=== PATIENT | female | born 1940 | race Caucasian/White ===

== ENCOUNTER 2018-01-02 21:22 | Emergency (ER) | payer MEDICARE, SELFPAY ==
[2018-01-02 21:24] VITALS: BP 129/74; PULSE 94; RESP 17; TEMP 36.7; O2SAT 93; BMI 20.9
--- NOTE | 2018-01-02 21:43 | ED.DCSUM_ITS ---
- ER Visit Summary Date of Service: 01/02/18 Chief Complaint: Constipation History of Present Illness: The patient is a 77 F presents constipation for 3 days. Normal bowel movement every other day. States decreased flatus. Nausea vomiting 3 days ago, none since. Has tolerated oral intake. No urinary symptoms. Try to suppository with no relief. Concerned due to have a bowel obstruction in July of last year with similar presentation. She has had radiation therapy for uterine cancer in the past along with an appendectomy. She is followed by Dr. Fernández as an inpatient with conservative treatment. States had lower abdominal discomfort. No fevers. Currently denies any symptoms. Physical Examination: General: Alert and oriented ?3, no acute distress HEENT: Normocephalic, atraumatic. Moist mucosa membranes Neck: supple, nontender. Cardiovascular: Regular rate and rhythm, no murmurs Respiratory: Normal breath sounds, symmetric, no distress Abdomen: Soft, nontender, nondistended. Hypoactive bowel sounds Rectal: No hemorrhoids, no stools in the rectum. Extremities: Nontender, no edema, pulses intact ?4 Neuro: no focal neurological deficits. Test Results: White count 12.2. Lipase 75. BMP and liver enzymes normal. CT abdomen pelvis no acute findings, no obstruction. Emergency Department Course and Treatment: Patient nonsurgical abdomen. History of bowel obstruction per patient. Abdominal labs normal. CT abdomen shows no obstruction. Overall my evaluation no distended bladder. States his denied problems urinating. She is monitored she is able urinate herself and fully empty. Discussed with patient she has bowel movements every other day she does have MiraLAX at home. She will take MiraLAX 1 scoop daily to try to have 1 bowel movement per day. She will monitor symptoms. She will follow-up with PCP. Return if any worsening symptoms. All questions were answered. Treatment Plan: [] Disposition: Discharge Impression: 1. Constipation This note was generated with [employer] dictation software. It may contain incorrect words, spelling, and punctuation that were not noted in review of the chart prior to signing ED Disposition - Plan for ED Patient: Disposition: Home or Assisted Living Chief Complaint: Constipation Diagnosis: Constipation Instructions: ED Constipation Referrals: Dory Johnson DO [Primary Care Provider] - 3-5 Days Additional Instructions: Use MiraLAX daily.
[2018-01-02 22:01] LABS: Absolute Lymphocyte Count 3.37 X10^3/ul (0.83-4.51); Absolute Neutrophil Count 7.2 X10^3/uL (2.0-7.7); Basophil# 0.06 X10^3/uL; Basophil% 0.5 % (0-1); Eosinophil# 0.15 X10^3/uL; Eosinophils% 1.2 % (0-5); Hematocrit 44.5 % (37-47); Hemoglobin 14.5 g/dl (12.0-15.0); Lymphocyte # 3.37 X10^3/ul (4.0); Lymphocyte % 27.5 % (19-41); Mean Corp Hgb Conc 32.6 g/gl (32-36); Mean Corpuscular Hgb 29.1 pg (27.0-32.0); Mean Corpuscular Volume 89.2 fL (81-99); Mean Platelet Vol. 10.6 fl (6.2-12.0); Monocyte# 1.49 X10^3/uL; Monocyte% 12.2 % (0-10); Neutrophil # 7.15 X10^3/uL (2.7-7.7); Neutrophil % 58.4 % (47-70); Platelet Count 211 K/mm3 (150-450); RBC Distribution Width SD 42.2 fl (35.1-43.9); Red Blood Count 4.99 M/mm3 (4.2-5.4); White Blood Count 12.2 K/mm3 (4.4-11.0)
[2018-01-02 22:07] LABS: POSITIVE COUNT NO; POSITIVE DIFFERENTIAL NO; POSITIVE MORPHOLOGY NO
[2018-01-02 22:20] LABS: ALB/GLOB Ratio 1.1 RATIO (0.9-2.4); AST(SGOT) 17 U/L (15-37); Alanine Aminotransfer ALT/SGPT 27 U/L (13-56); Albumin, Serum 3.8 g/dL (3.2-5.0); Alkaline Phosphatase 77 U/L (45-117); Anion Gap 10 (5-15); BUN 18 mg/dL (7-18); BUN/Creat Ratio 18.8 RATIO (10-20); Calcium,Total 9.4 mg/dL (8.5-10.1); Chloride 100 mmol/L (98-107); Creatinine, Serum 0.96 mg/dL (0.55-1.02); EST Glomerular Filtration Rate 60 mL/min (>60); Est Glom Filt Rate - Afr Amer 72 mL/min (>60); Estimated Creatinine Clearance 43.46 ml/min; Globulin 3.5 g/dL (2.2-4.2); Glucose 98 mg/dL (74-106); Lipase 75 U/L (73-393); Potassium 3.7 mmol/L (3.5-5.1); Protein, Total 7.3 g/dL (6.4-8.2); Sodium Level 137 mmol/L (136-145)
--- NOTE | 2018-01-02 22:48 | CT_ITS ---
STUDY: CT ABDOMEN AND PELVIS WITHOUT CONTRAST REASON FOR EXAM: Female, 77 years old. Abdominal pain. Constipation RADIATION DOSAGE (If Supplied By Facility): CTDIvol = ( 6 ) mGy, DLP = ( 261 ) mGycm TECHNIQUE: Transaxial images were obtained from the dome of the diaphragm to the symphysis pubis without oral contrast, and without intravenous contrast. Sagittal and coronal images were reconstructed. Individualized dose optimization techniques were used for this CT. COMPARISON: 08/03/2017 FINDINGS: Evaluation of the abdominal viscera is limited in the absence of intravenous contrast. There are stable emphysematous changes at the lung bases. The visualized portions of the heart and pericardium are within normal limits. The patient is status post cholecystectomy. The liver demonstrates an unremarkable unenhanced appearance. The spleen is normal in size. The pancreas demonstrates an unremarkable unenhanced appearance. The adrenal glands are within normal limits. There are no obstructing renal stones. There is no hydronephrosis. Normal visualized stomach. There is no bowel obstruction or inflammation. The appendix is not visualized, but there are no findings to suggest acute appendicitis. The aorta is normal in caliber. Again noted are atherosclerotic calcifications in the aorta and its branches. There is no abdominal or pelvic free air, free fluid, fluid collection or lymphadenopathy. There are no destructive osseous lesions. CT/Abdomen/Pelvis without Cont IMPRESSION: No acute abdominal or pelvic pathology demonstrated on this noncontrast CT. Electronically Signed: Jame Da Silva, at 23:19 EDT Tel , Service support ,
[2018-01-02] MEDS: 0.9% Normal Saline 1,000 ML 125 ML IV (23:00)
[2018-01-03 00:08] VITALS: BP 127/67; PULSE 89; RESP 18; O2SAT 96
== END 2018-01-03 00:09 | disposition home or self-care (01) ==
PROVIDERS: Emergency Provider Emergency Medicine; Family Provider Internal Medicine; PCP Internal Medicine
DX: K59.00 Constipation, unspecified (principal); I10 Essential (primary) hypertension; J44.9 Chronic obstructive pulmonary disease, unspecified; Z72.0 Tobacco use; Z85.42 Personal history of malignant neoplasm of other parts of uterus
CPT/HCPCS: 74176; 80053; 83690; 85025; 96360; 96361; 99283; J7030; A4216

== ENCOUNTER 2018-01-26 22:37 | Emergency (ER) | payer MEDICARE, SELFPAY ==
[2018-01-26 22:37] VITALS: BP 153/77; PULSE 99; RESP 22; TEMP 36.6; O2SAT 93; BMI 20.9
--- NOTE | 2018-01-26 23:04 | ED.DCSUM_ITS ---
- ER Visit Summary Date of Service: 01/26/18 Chief Complaint: hives History of Present Illness: The patient is a 77 F with history of COPD who presents for hives and itching. Patient states that she was on Bactrim from until January 14 for a urinary tract infection. She said she began having itching sometime while on the Bactrim but she is not exactly sure when. She saw her doctor 2 days ago and was given an injection of Solu-Medrol intramuscularly. She felt better yesterday but had return of symptoms today. She noted that she has a red rash at some point in the last couple days as well. Rash noted on the legs, arms, back and abdomen. Patient also feels like her upper lip is swollen. She states her urinary symptoms resolved on the Bactrim but she does have burning after urination. She denies fever, chest pain , shortness of breath beyond her baseline, abdominal pain, nausea or vomiting, oral lesions or pain, vaginal pain, bowel difficulties, or eye itching or discharge. Physical Examination: Vital signs: afebrile, hemodynamically stable, on chronic oxygen, 93% General: well nourished, well developed, in no distress Skin: warm, dry, no pallor, dry erythematous patches and plaques symmetric on the inner thighs, flexor surfaces of the arms, and diffuse maculopapular erythematous dry rash on the buttocks, back, chest and abdomen, lesions are pruritic with secondary excoriations. No vesicles, bullae, petechiae or purpura. No oropharyngeal lesions or erythema. No vulvar lesions or erythema. HEENT: normocephalic and atraumatic; PERRL, EOMI, moist mucous membranes, conjunctivae are white without lesions or exudate, right upper lip has focal area of mild swelling without any vesicle, rash or skin compromise Cardiovascular: regular rate and rhythm without murmurs, no peripheral edema, 2 + pulses all distal extremities Respiratory: No increased work of breathing, lungs are clear to auscultation bilaterally, no rales, rhonchi or wheezing Abdominal: Abdomen is soft, nontender with normoactive bowel sounds, no guarding or rebound, no masses MSK: Moves all extremities, no deformities, normal strength Neuro: Awake and alert, oriented ?4. No facial droop, sensation and motor function intact and symmetric Test Results: Laboratory Results 01/26/18 23:12: WBC 19.6 H, RBC 4.95, Hgb 14.6, Hct 43.7, MCV 88.3, MCH 29.5, MCHC 33.4, RDW 13.2, RDW Differential 42.5, Plt Count 234, MPV 11.4, Immature Gran % (Auto) 0.300, Neut % (Auto) 58.8, Lymph % (Auto) 27.2, Mcdonough % (Auto) 11.3 H, Eos % (Auto) 1.0, Baso % (Auto) 1.4 H, Absolute Neuts (auto) 11.5 H, Absolute Lymphs (auto) 5.33 H, Total Counted Not Reportable, Differential Comment SCANNED, Diff Path Review May foll, Atypical Lymphocytes 1+, Reactive Lymphocytes 1+, Smudge Cells RARE, Platelet Estimate ADEQUATE 01/26/18 23:12: Sodium 139, Potassium 3.8, Chloride 102, Carbon Dioxide 30.0, Anion Gap 7, BUN 26 H, Creatinine 0.98, Estim Creat Clear Calc 42.57, Est GFR ( MDRD) Af Amer 71, Est GFR (MDRD) Non-Af 59 L, BUN/Creatinine Ratio 26.7 H, Glucose 107 H, Calcium 9.4, Total Bilirubin 0.30, AST 17, ALT 21, Alkaline Phosphatase 78, Total Protein 7.8, Albumin 4.1, Globulin 3.7, Albumin/Globulin Ratio 1.1 01/26/18 23:12: Urine Color Yellow, Urine Clarity Clear, Urine pH 6.0, Ur Specific [place] 1.010, Urine Protein Negative, Urine Glucose (UA) Normal, Urine Ketones Negative, Urine Occult Blood 10 H, Urine Nitrite Negative, Urine Bilirubin Negative, Urine Urobilinogen Normal, Ur Leukocyte Esterase 500 H, Urine RBC 0 SEEN, Urine WBC 10-25 SEEN, Ur Squamous Epith Cells 0-5 SEEN, Urine Bacteria 1+, Urine Mucus 0 SEEN Emergency Department Course and Treatment: Differential for patient includes a drug reaction, allergic reaction, Jame Anibal syndrome. Patient has no lesions noted to the mucosal membranes, including the vulvar region and the oral mucosa. No lesions or ocular symptoms noted on examination of the eyes. Patient's rash is dry, blanchable, no petechiae, purpura or vesicles. Patient does state she had improvement after the Solu-Medrol injection 2 days ago with return of her symptoms today. Because patient is complaining of pain with urination, urinalysis was performed and does show a UTI. Likely this is the cause of the dysuria rather than patient having any lesions causing the pain. Patient had no change in her rash her condition. The rash is not painful but rather pruritic. These things make Arellano-Anibal syndrome much less likely and it is more likely an allergic reaction/drug rash. Patient is allergic to prednisone and thus was started on a Medrol Dosepak. She has Benadryl at home and was instructed to cautiously use it for the itching. Because of the UTI she was prescribed Keflex. She is allergic to almost every antibiotic, and her allergy to amoxicillin she states was it caused abdominal discomfort. Thus it is unlikely she will have anaphylaxis to Keflex and was prescribed this medication. First dose was given in the emergency department to see how she will respond to it and patient had no adverse effects. She was given strict return precautions and symptoms to watch for that should warrant her to return immediately for another evaluation. She is encouraged to follow-up in the next day or 2 with her doctor for reevaluation of her rash. Patient agreed with this plan. Treatment Plan: [] Disposition: [] Impression: Cystitis, allergic dermatitis This note was generated with [employer] dictation software. It may contain incorrect words, spelling, and punctuation that were not noted in review of the chart prior to signing ED Disposition - Plan for ED Patient: Disposition: Home or Assisted Living Chief Complaint: Allergic Reaction Instructions: ED Drug React Allergic, ED UTI Cystitis Female Prescriptions: MethylPREDNISolone DosePak [Medrol DosePak] 4 mg PO UD #1 box Cephalexin [Keflex] 500 mg PO BID #13 cap Referrals: Dory Johnson, [Primary Care Provider] - As soon as possible Additional Instructions: Prescriptions for the steroid Dosepak and the antibiotic has been sent electronically to the [facility] pharmacy. Please see your doctor or the nurse practitioner in your doctor's office as soon as possible for a reexamination of your rash. Take the Medrol Dosepak as instructed on the packaging label. May use Benadryl as needed for itching, taking the low dose of 25 mg every 6 hours as needed. It may make you sleepy so be very careful when walking and do not drive when taking this medication. If it makes you too sleepy, stop taking it. You also have a urinary tract infection and have been prescribed Keflex to treat it. If at any point you develop any lesions in your mouth, vaginal pain, eye redness or discharge, blisters on your skin, or any other worsening of your condition, please return immediately to the emergency department or call 911.
[2018-01-26 23:18] LABS: Mucous, Urine 0 SEEN /hpf (<or=2+); Red Blood Cells-Urine 0 SEEN /hpf (0-5)
[2018-01-26 23:22] LABS: Color, Urine Yellow (Yellow); Glucose, Dipstick Normal (Normal); Ketone-Dipstick Negative (Negative); Leukocyte Esterase-Dipstick 500 /ul (Negative); Nitrite-Dipstick Negative (Negative); Occult Blood-Urine 10 /ul (Negative); Protein-Dipstick Negative (Negative); Urine Bilirubin Dipstick Negative (Negative); Urine Clarity Clear (Clear); Urine Urobilinogen Normal (Normal)
[2018-01-26 23:29] LABS: Absolute Lymphocyte Count 5.33 X10^3/ul (0.83-4.51); Absolute Neutrophil Count 11.5 X10^3/uL (2.0-7.7); Basophil# 0.28 X10^3/uL; Basophil% 1.4 % (0-1); Hematocrit 43.7 % (37-47); Hemoglobin 14.6 g/dl (12.0-15.0); Lymphocyte # 5.33 X10^3/ul (4.0); Lymphocyte % 27.2 % (19-41); Mean Corp Hgb Conc 33.4 g/gl (32-36); Mean Corpuscular Hgb 29.5 pg (27.0-32.0); Mean Corpuscular Volume 88.3 fL (81-99); Mean Platelet Vol. 11.4 fl (6.2-12.0); Monocyte# 2.22 X10^3/uL; Monocyte% 11.3 % (0-10); Neutrophil # 11.48 X10^3/uL (2.7-7.7); Neutrophil % 58.8 % (47-70); Platelet Count 234 K/mm3 (150-450); RBC Distribution Width CV 13.2 % (11.6-14.6); RBC Distribution Width SD 42.5 fl (35.1-43.9); Red Blood Count 4.95 M/mm3 (4.2-5.4); White Blood Count 19.6 K/mm3 (4.4-11.0)
[2018-01-26 23:31] LABS: Differential Indicated SCAN CRITERIA MET; POSITIVE COUNT NO; POSITIVE DIFFERENTIAL YES; POSITIVE MORPHOLOGY YES
[2018-01-26 23:35] LABS: ALB/GLOB Ratio 1.1 RATIO (0.9-2.4); AST(SGOT) 17 U/L (15-37); Alanine Aminotransfer ALT/SGPT 21 U/L (13-56); Albumin, Serum 4.1 g/dL (3.2-5.0); Alkaline Phosphatase 78 U/L (45-117); Anion Gap 7 (5-15); BUN 26 mg/dL (7-18); BUN/Creat Ratio 26.7 RATIO (10-20); Bacteria 1+ /hpf (None Seen); Calcium,Total 9.4 mg/dL (8.5-10.1); Chloride 102 mmol/L (98-107); Creatinine, Serum 0.98 mg/dL (0.55-1.02); EST Glomerular Filtration Rate 59 mL/min (>60); Est Glom Filt Rate - Afr Amer 71 mL/min (>60); Estimated Creatinine Clearance 42.57 ml/min; Globulin 3.7 g/dL (2.2-4.2); Glucose 107 mg/dL (74-106); Potassium 3.8 mmol/L (3.5-5.1); Protein, Total 7.8 g/dL (6.4-8.2); Sodium Level 139 mmol/L (136-145); Squamous Epithelial Cells - UA 0-5 SEEN /hpf (5-10); White Blood Cells 10-25 SEEN /hpf (0-5)
--- NOTE | 2018-01-27 00:54 | ED.DEP ---
ED Disposition - Plan for ED Patient: Disposition: Home or Assisted Living Chief Complaint: Allergic Reaction Instructions: ED Drug React Allergic, ED UTI Cystitis Female Prescriptions: Cephalexin [Keflex] 500 mg PO Q12H #14 cap MethylPREDNISolone DosePak [Medrol DosePak] 4 mg PO UD #1 box Referrals: Dory Johnson DO [Primary Care Provider] - As soon as possible Additional Instructions: Prescriptions for the steroid Dosepak and the antibiotic has been sent electronically to the [facility] pharmacy. Please see your doctor or the nurse practitioner in your doctor's office as soon as possible for a reexamination of your rash. Take the Medrol Dosepak as instructed on the packaging label. May use Benadryl as needed for itching, taking the low dose of 25 mg every 6 hours as needed. It may make you sleepy so be very careful when walking and do not drive when taking this medication. If it makes you too sleepy, stop taking it. You also have a urinary tract infection and have been prescribed Keflex to treat it. If at any point you develop any lesions in your mouth, vaginal pain, eye redness or discharge, blisters on your skin, or any other worsening of your condition, please return immediately to the emergency department or call 911.
[2018-01-27 00:58] LABS: Atypical Lymphocyte 1+ %; Differential Comment SCANNED; Platelet Estimate ADEQUATE (ADEQ); Reactive Lymphocyte 1+; Smudge Cells RARE
[2018-01-27] MEDS: Cephalexin 250 MG Capsule 500 MG PO (01:07)
[2018-01-27 02:12] VITALS: BP 136/83; PULSE 86; O2SAT 97
--- NOTE | 2018-01-27 02:13 | NURSING ---
NO REACTION NOTED AFTER TAKING A P.O DOSE OF KEFLEX. PATIENT OK TO BE DISCHARGED HOME PER DR. HOLCOMB.
[2018-01-27 11:49] LABS: Pathologist Review Reviewed
== END 2018-01-27 02:17 | disposition home or self-care (01) ==
PROVIDERS: Emergency Provider Emergency Medicine; Family Provider Internal Medicine; PCP Internal Medicine
DX: N30.90 Cystitis, unspecified without hematuria (principal); L30.8 Other specified dermatitis; J44.9 Chronic obstructive pulmonary disease, unspecified; Z99.81 Dependence on supplemental oxygen
CPT/HCPCS: 80053; 81001; 85025; 87086; 87088; 99284; A4216

== ENCOUNTER → 2018-04-06 07:40 | Outpatient (CLI) | payer MEDICARE, SELFPAY ==
--- NOTE | 2018-04-06 07:41 | BI_ITS ---
MAMMOGRAPHY - BILATERAL SCREENING REASON FOR EXAM: Female, 78 years old. Routine annual screening examination. PERTINENT HISTORY: Non-contributory. TECHNIQUE: Digital bilateral breast billy (3D mammographic acquisition) in the CC and MLO projections. 2-D mediolateral oblique (MLO) and craniocaudad (CC) views of both breasts were obtained. CAD: Full Field Digital Mammography with Computer Added Detection was performed. COMPARISON: Comparison is made with prior study dated July 27, 2013 and June 02, 2012. FINDINGS: Breast Composition: There are scattered areas of fibroglandular density. There are no dominant masses or suspicious calcifications. No other significant abnormalities are identified. There has been no significant change since the prior study. BI/SCREENING MAMM (CAD), BILAT IMPRESSION: Stable bilateral screening mammogram. Yearly follow-up mammogram recommended. (A) ASSESSMENT CATEGORY: BIRADS Category 1: Negative. A letter regarding these results will be sent to the patient by the facility within 30 days. Approximately 10% of breast cancers are not detected by mammography. A normal mammogram should not delay biopsy of a clinically suspicious abnormality. [id number] Electronically Signed: Roberto Carlos Laureano MD at 10:56 EDT Tel [phone], Service support ,
== END ==
PROVIDERS: Family Provider Internal Medicine; PCP Internal Medicine; Visit Provider Internal Medicine
DX: Z12.31 Encounter for screening mammogram for malignant neoplasm of breast (principal)
CPT/HCPCS: 77063; 77067

== ENCOUNTER → 2018-05-11 07:32 | Outpatient (CLI) | payer MEDICARE, SELFPAY ==
--- NOTE | 2018-05-11 13:41 | PFT ---
INTRODUCTION: The patient is a 78-year-old female that presents for pulmonary function testing secondary to a diagnosis of COPD. Respiratory therapy reports good patient effort. Bronchodilators were used during testing. INTERPRETATION: Forced expiration spirometry demonstrates the presence of a severe large airways obstructive ventilatory defect. There was no significant response to aerosolized bronchodilators. Spirograms are of good quality and do not plateau indicating slow emptying of the lungs. The respiratory flow volume loop reveals decreased expiratory flow rates at all lung volumes consistent with airways obstruction. Body plethysmography was performed and reveals an elevated RV to 153% of predicted, indicative of underlying air trapping. Diffusing capacity by single breath CO is severely reduced at 36% of predicted. 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 All of this would be in keeping with the patient's known history of COPD.
== END ==
PROVIDERS: Family Provider Internal Medicine; PCP Internal Medicine; Visit Provider Internal Medicine
DX: J44.9 Chronic obstructive pulmonary disease, unspecified (principal)
CPT/HCPCS: 94060; 94726; 94729

== ENCOUNTER 2018-07-21 07:31 | Observation (INO) | payer MEDICARE, SELFPAY ==
[2018-07-21] VITALS (13 sets, daily range): BP systolic 120–132; BP diastolic 54–69; PULSE 80–100; RESP 16–28; TEMP 36.6–36.9; O2SAT 88–99; BMI 20.7; BMI 20.8; BMI 21.3
--- NOTE | 2018-07-21 07:33 | EKG12_ITS ---
Test Reason : CP Blood Pressure : / mmHG Vent. Rate : 095 BPM Atrial Rate : 095 BPM P-R Int : 140 ms QRS Dur : 092 ms QT Int : 336 ms P-R-T Axes : 036 024 052 degrees QTc Int : 422 ms Sinus rhythm with frequent Premature ventricular complexes Otherwise normal ECG Confirmed by LILLIAN MENDES, LINDSAY ([id number]), proposal editor LINDA LEVINE ([id number]) on 07/25/2018 2:39:05 PM Referred By: DOLORES Confirmed By:LINDSAY SNYDER MD
--- NOTE | 2018-07-21 07:45 | RAD_ITS ---
STUDY: X-RAY CHEST REASON FOR EXAM: Female, 78 years old. Chest pain. TECHNIQUE: Single AP portable view of the chest. COMPARISON: Comparison is made with prior study dated April 27, 2010. FINDINGS: EKG electrodes are seen. Mild increased markings at the lung bases slightly more prominent on the left side suggestive of mild basilar scarring. Hyperinflation. There is no demonstrated pleural abnormality. Normal size heart. Normal mediastinum and ignacio. Normal visualized pulmonary arteries. There is atherosclerotic calcification of the aortic arch with tortuosity. There are diffuse degenerative changes of the visualized thoracic spine. Mild levoscoliosis. Normal visualized ribs, clavicles, and shoulders. There is no demonstrated abnormality of the visualized soft tissue structures of the upper abdomen. RAD/Chest 1 View (Portable) IMPRESSION: Hyperinflation. Mild increased markings at the lung bases slightly more prominent at the left lung base suggestive of linear scarring. Electronically Signed: Roberto Carlos Laureano MD at 8:17 EDT Tel [phone], Service support ,
--- NOTE | 2018-07-21 07:48 | ED.VISSUMM ---
- ER Visit Summary Date of Service: 07/21/18 Chief Complaint: Chest pain History of Present Illness: The patient is a 78 F history of COPD on 2 L O2 and hypertension. States the last week she has had intermittent chest pain with and without exertion. No prior cardiac history. She denies ever having a cardiac cath and does not believe she is ever had a stress test. She denies any history of DVT or PE. She has had no recent travel, surgery, mobilization or hospitalization. She denies any leg pain or swelling. She denies any hemoptysis. She describes the chest pain as a pressure or heaviness in her chest this morning and last night it did go to her left arm. Currently is resolved. She was brought in by the squad that she caught herself and they treated her with aspirin. She refused any nitroglycerin. Physical Examination: Elderly female no acute distress. Currently pain-free. Vital signs stable and afebrile. Pulse ox 94% on it says room air on 2 L she is in the mid 90s. No hypoxia. HEENT exam unremarkable. Neck nontender. No JVD. Lungs clear to auscultation bilaterally. Heart regular rhythm no murmur. Chest wall nontender. Abdomen soft and nontender. Normal bowel sounds. No pulsatile mass. She is moving all 4 extremities. She is equal and symmetrical radial pulses. Calves are nontender without edema or cords. Back nontender. Neurologically she is awake and alert with no focal motor deficits. Test Results: EKG shows a sinus rhythm rate of 95 with a few PVCs. No acute signs of WI nor ischemia. Chest x-ray shows chronic changes but no acute process read both by myself and the radiologist. Normal cardiac silhouette and mediastinum. CBC White count 11.6 otherwise unremarkable. Hemoglobin 14. Electrolytes show sodium 132. Potassium 3.3. Normal gap and creatinine. Troponin is normal also. Emergency Department Course and Treatment: Elderly female with intermittent chest pain for approximately a week. She will undergo a cardiac workup. She has already received aspirin per squad. Repeat exam at 08 40 5 AM the patient is doing well. Symptom-free. She not discussed all of her test results and the reason to have her admitted and further evaluated. She is fine with the plan. I have the hospitalist on page. Treatment Plan: [] Disposition: Admission Impression: Acute chest pain of uncertain etiology History of COPD on O2 This note was generated with [employer] dictation software. It may contain incorrect words, spelling, and punctuation that were not noted in review of the chart prior to signing ED Disposition - Plan for ED Patient: Chief Complaint: Chest Pain Referrals: Dory Johnson DO [Primary Care Provider] -
[2018-07-21 07:58] LABS: Absolute Lymphocyte Count 2.25 X10^3/ul (0.83-4.51); Basophil# 0.04 X10^3/uL; Basophil% 0.3 % (0-1); Eosinophil# 0.09 X10^3/uL; Eosinophils% 0.8 % (0-5); Hematocrit 43.8 % (37-47); Hemoglobin 14.5 g/dl (12.0-15.0); Lymphocyte # 2.25 X10^3/ul (4.0); Lymphocyte % 19.3 % (19-41); Mean Corp Hgb Conc 33.1 g/gl (32-36); Mean Corpuscular Hgb 28.5 pg (27.0-32.0); Mean Corpuscular Volume 86.1 fL (81-99); Mean Platelet Vol. 10.6 fl (6.2-12.0); Monocyte% 10.3 % (0-10); Neutrophil # 8.03 X10^3/uL (2.7-7.7); Neutrophil % 69.1 % (47-70); Platelet Count 222 K/mm3 (150-450); RBC Distribution Width CV 12.6 % (11.6-14.6); Red Blood Count 5.09 M/mm3 (4.2-5.4); White Blood Count 11.6 K/mm3 (4.4-11.0)
[2018-07-21 08:01] LABS: POSITIVE COUNT NO; POSITIVE DIFFERENTIAL NO; POSITIVE MORPHOLOGY NO
[2018-07-21 08:14] LABS: Anion Gap 9 (5-15); BUN 21 mg/dL (7-18); BUN/Creat Ratio 27.4 RATIO (10-20); Calcium,Total 9.4 mg/dL (8.5-10.1); Chloride 96 mmol/L (98-107); Creatinine, Serum 0.77 mg/dL (0.55-1.02); EST Glomerular Filtration Rate 77 mL/min (>60); Est Glom Filt Rate - Afr Amer 93 mL/min (>60); Estimated Creatinine Clearance 40.83 ml/min; Glucose 103 mg/dL (74-106); Potassium 3.3 mmol/L (3.5-5.1); Sodium Level 132 mmol/L (136-145)
--- NOTE | 2018-07-21 08:54 | PCM.HP.STD ---
Problem List (1) History of foot surgery Status: Chronic (2) History of arthroscopy of left knee Status: Chronic (3) History of tubal ligation Status: Chronic (4) History of cholecystectomy Status: Chronic (5) Anxiety Status: Chronic (6) Hyperglyceridemia Status: Chronic (7) Smoker Status: Chronic (8) Bronchitis Status: Chronic (9) Allergic rhinitis Status: Chronic (10) COPD (chronic obstructive pulmonary disease) Status: Chronic (11) HTN (hypertension) Status: Chronic (12) Low HDL (under 40) Status: Chronic (13) Hypoxemia Status: Chronic (14) Osteoporosis Status: Chronic (15) Hypothyroidism Status: Chronic (16) Abnormal blood chemistry Status: Acute (17) Chest pain Status: Acute (18) GERD (gastroesophageal reflux disease) Status: Chronic (19) Diverticulosis of colon Status: Chronic (20) SOB (shortness of breath) Status: Chronic (21) PVD (peripheral vascular disease) Status: Chronic (22) Nephrolithiasis Status: Chronic (23) COPD (chronic obstructive pulmonary disease) Status: Acute (24) History of cervical cancer Status: Chronic (25) HTN (hypertension) Status: Chronic (26) SBO (small bowel obstruction) Status: Acute History of Present Illness Date of Admission: 07/21/18 Chief Complaint: Chest discomfort The patient is a 78 year old F with multiple comorbidities including chronic hypoxic respiratory failure on baseline home O2 who presents chest pain. Patient reports chest pain is located in the epigastrium with radiation down her arms. Patient has experienced intermittent chest pain over the past couple of weeks. The frequency was increasing hence her decision to present to the emergency abdomen. On further questioning patient denied any shortness of breath. Denied feeling lightheaded no nausea no vomiting. Patient was seen in the emergency department initial set of cardiac enzymes came back unremarkable admitted to a monitored bed for subsequent evaluation. Past Medical History Past Medical History (Chronic Problems): Chronic Problems (Last Reviewed 06/02/18 @ 07:26 by Inga Meyer) History of foot surgery (Chronic) History of arthroscopy of left knee (Chronic) History of tubal ligation (Chronic) History of cholecystectomy (Chronic) Anxiety (Chronic) Hyperglyceridemia (Chronic) Smoker (Chronic) Bronchitis (Chronic) Allergic rhinitis (Chronic) COPD (chronic obstructive pulmonary disease) (Chronic) HTN (hypertension) (Chronic) Low HDL (under 40) (Chronic) Hypoxemia (Chronic) Osteoporosis (Chronic) Hypothyroidism (Chronic) GERD (gastroesophageal reflux disease) (Chronic) Diverticulosis of colon (Chronic) SOB (shortness of breath) (Chronic) PVD (peripheral vascular disease) (Chronic) Nephrolithiasis (Chronic) History of cervical cancer (Chronic) HTN (hypertension) (Chronic) Medical History: Medical History (Last Reviewed 07/21/18 @ 12:04 by Kolby Devine MD) Sinusitis (Resolved) J32.9 Acute exacerbation of COPD with asthma (Resolved) J44.1, J45.901 Small bowel obstruction (Resolved) K56.609 Anxiety (Chronic) F41.9 Hives (Resolved) L50.9 Hyperglyceridemia (Chronic) E78.1 Leukocytosis (Resolved) D72.829 Heart disease (Inactive) I51.9 Smoker (Chronic) F17.200 Bronchitis (Chronic) J40 Allergic rhinitis (Chronic) J30.9 COPD (chronic obstructive pulmonary disease) (Chronic) J44.9 HTN (hypertension) (Chronic) I10 Low HDL (under 40) (Chronic) E78.6 Hypoxemia (Chronic) R09.02 Osteoporosis (Chronic) M81.0 Hypothyroidism (Chronic) E03.9 Abnormal blood chemistry (Acute) R79.9 Chest pain (Acute) R07.9 GERD (gastroesophageal reflux disease) (Chronic) K21.9 Diverticulosis of colon (Chronic) K57.30 SOB (shortness of breath) (Chronic) R06.02 PVD (peripheral vascular disease) (Chronic) I73.9 Nephrolithiasis (Chronic) N20.0 Allergies amoxicillin [From Augmentin] Allergy (Verified 07/21/18 08:32) Unknown ciprofloxacin Allergy (Verified 07/21/18 08:32) Unknown clavulanic acid [From Augmentin] Allergy (Verified 07/21/18 08:32) Unknown dextromethorphan Allergy (Verified 07/21/18 08:32) Hives levofloxacin [From Levaquin] Allergy (Verified 07/21/18 08:32) Anaphylaxis niacin Allergy (Verified 07/21/18 08:32) Pain in joints nitrofurantoin Allergy (Verified 07/21/18 08:32) Unknown prednisone Allergy (Verified 07/21/18 08:32) Hives propoxyphene Allergy (Verified 07/21/18 08:32) Unknown Sulfa (Sulfonamide Antibiotics) Allergy (Verified 07/21/18 08:32) Hives sulfamethoxazole [From Bactrim] Allergy (Verified 07/21/18 08:32) Hives tetracycline Allergy (Verified 07/21/18 08:32) Unknown trimethoprim [From Bactrim] Allergy (Verified 07/21/18 08:32) Hives clarithromycin [From Biaxin] Adverse Reaction (Mild, Verified 07/21/18 08:32) Rash codeine Adverse Reaction (Verified 07/21/18 08:32) Nausea ANALOGUES Allergy (Uncoded 07/21/18 08:32) Unknown dextromethorphan-guaifenesin Allergy (Uncoded 07/21/18 08:32) Hives macrocryst Allergy (Uncoded 07/21/18 08:32) Unknown Home Medications: Ambulatory Orders Medication Instructions Recorded Aspirin [Aspirin, Baby] 81 mg PO DAILY@0800 08/03/17 Hydrochlorothiazide [Hctz] 12.5 mg PO DAILY 08/03/17 Tiotropium [place] [Spiriva 18 MCG] 1 puff INHALATION DAILY 08/03/17 Albuterol Inhaler [Ventolin Hfa] 1 - 2 puff INHALATION Q4H PRN PRN 08/06/17 #1 inhaler budesonide-formoterol HFA 160 1 puff INHALATION BID g 05/26/18 mcg-4.5 mcg/actuation aerosol inhaler polyethylene glycol 3350 17 gram 17 g PO QDAY 05/26/18 oral powder packet Surgical History: Surgical History (Last Reviewed 07/21/18 @ 12:04 by Kolby Devine MD) History of foot surgery (Chronic) Z98.890 History of arthroscopy of left knee (Chronic) Z98.890 History of tubal ligation (Chronic) Z98.51 History of cholecystectomy (Chronic) Z90.49 Surgical History: - - cervical cancer radiation and surgery , cholecystectemy, appendectomy, Smoking Status: Current every day smoker - *Family History Maternal History Items: Heart Disease Paternal History Items: No pertinent history Review of Systems Constitutional: Denies: Anorexia, Chills, Fever, Night Sweats, Weight Change HEENT: Denies: Head Aches, Sinus Congestion, Sinus Drainage Cardiovascular: Reports: Chest Pain. Denies: Orthopnea, Palpitations, Paroxysmal Noc. Dyspnea Respiratory: Denies: Cough, Shortness of breath at rest, Shortness of breath upon exertion, Sputum production Gastrointestinal: Denies: Abdominal Pain, Hematemesis, Hematochezia, Nausea, Melena, Vomiting Genitourinary: Denies: Dysuria, Frequency, Hematuria, Urgency Musculoskeletal: Denies: Joint Pain, Joint Tenderness Skin: Denies: Rash Neurological: Denies: Focal weakness, Numbness, Tingling Psychiatric: Denies: Homicidal Ideations, Suicidal Ideations Hematologic/ Lymphatic: Denies: Easy Bruising, Easy Bleeding VTE Information - Inpt Only VTE Present on Admission: No VTE Mechan Device Prophylaxis: SCD's VTE Pharm Prophylaxis ordered?: No - Physical Exam General: Alert, Oriented x3, Cooperative, No apparent distress HEENT: Atraumatic, Normocephalic Neck: Supple, No JVD, Thyroid Normal Size and Texture Lungs: No wheeze, Diminished Cardiovascular: Regular rate, Normal S1, Normal S2, No murmurs, PMI Normal, No rub noted Abdomen: Bowel Sounds Present, Soft, Non Tender Extremities: No clubbing, No cyanosis, No edema Skin: No rashes Musculoskeletal: - - Full range of motion in all major muscle groups. Neurological: Neuro grossly intact Psych/Mental Status: Normal Affect Vital Signs Temp Pulse Resp BP Pulse Ox 97.9 F 100 23 H 132/69 H 94 07/21/18 07:32 07/21/18 07:37 07/21/18 07:37 07/21/18 07:32 07/21/18 07:37 Oxygen Flow Rate (L/min) 2 Oxygen Delivery Method Nasal Cannula Weight: 56.699 kg Body Mass Index (BMI) 20.7 Laboratory Tests Past 24 Hrs 07/21/18 07/21/18 07:45 07:45 WBC 11.6 H RBC 5.09 Hgb 14.5 Hct 43.8 MCV 86.1 MCH 28.5 MCHC 33.1 RDW 12.6 RDW Differential 40.0 Plt Count 222 MPV 10.6 Immature Gran % (Auto) 0.200 Neut % (Auto) 69.1 Lymph % (Auto) 19.3 Evangeline % (Auto) 10.3 H Eos % (Auto) 0.8 Baso % (Auto) 0.3 Absolute Neuts (auto) 8.0 H Absolute Lymphs (auto) 2.25 Total Counted Not Reportable Sodium 132 L Potassium 3.3 L Chloride 96 L Carbon Dioxide 27.0 Anion Gap 9 BUN 21 H Creatinine 0.77 Estim Creat Clear Calc 40.83 Est GFR (MDRD) Af Amer 93 Est GFR (MDRD) Non-Af 77 BUN/Creatinine Ratio 27.4 H Glucose 103 Calcium 9.4 Troponin I < 0.015 Assessment/Plan All Active Problems (Last Reviewed 06/02/18 @ 07:26 by Inga Meyer) Sinusitis (Resolved) Acute exacerbation of COPD with asthma (Resolved) Small bowel obstruction (Resolved) Hives (Resolved) Leukocytosis (Resolved) Abnormal blood chemistry (Acute) Chest pain (Acute) COPD (chronic obstructive pulmonary disease) (Acute) SBO (small bowel obstruction) (Acute) Is a 78-year-old lady presented with chest pain 1. Chest pain:: Placed on a monitored bed; rule out for Myocardial infarction with serial cardiac enzymes and EKGs. If negative, rule out Myocardial Ischemia with nuclear medicine stress test. 2. Elevated d-dimer CTA of the chest ordered to rule out PE 3. Chronic hypoxic respiratory failure on baseline home O2 secondary to COPD 4. COPD currently not in exacerbation 5. Hypertension-blood pressure controlled, home medications continued with dose adjustment as needed 6. DVT prophylaxis SC Lovenox Advance planning did discuss with the patient regarding her advanced directives as well as CODE STATUS. Did explain the various modalities involved patient elected to be DNR CCA no intubation. Order was placed. Time spent on discussion 18 minutes. Clinical Impression(s) from Imaging Studies Chest X-Ray 07/21/18 07:45 IMPRESSION: Hyperinflation. Mild increased markings at the lung bases slightly more prominent at the left lung base suggestive of linear scarring. Electronically Signed: Roberto Carlos Laureano MD at 8:17 EDT Tel [phone], Service support , Active Medications Albuterol Sulfate (Ventolin Aerosols) 2.5 mg INHALATION Q4H PRN Albuterol/Ipratropium (Duoneb) 3 ml INHALATION Q6HWA.RT [facility] Aspirin (Aspirin, Baby) 81 mg PO DAILY@0800 [facility] Budesonide (Pulmicort Aerosol) 0.5 mg INHALATION Q12H.RT [facility] Enoxaparin Sodium (Lovenox) 40 mg SC DAILY@1000 [facility] Hydrochlorothiazide (Hydrochlorothiazide) 12.5 mg PO DAILY REPLACED BY [facility] Last Admin: 07/21/18 11:15 Dose: Not Given Loratadine (Claritin) 5 mg PO HS [facility] Magnesium Hydroxide (Milk Of Magnesia) 30 ml PO DAILY PRN PRN Reason: Constipation Nitroglycerin (Nitrostat) 0.4 mg SUBLINGUAL Q5M PRN PRN Reason: CHEST PAIN Polyethylene Glycol (Miralax) 17 gm PO DAILY REPLACED BY [facility] Last Admin: 07/21/18 11:15 Dose: Not Given Sodium Chloride () 5 - 30 ml IV UD PRN PRN Reason: SALINE FLUSH Code Visit OBSV E&M: 34044 Initial observation care L3 Procedures: 17873 Advncd Care Plan 30 Min
--- NOTE | 2018-07-21 08:55 | NURSING ---
PCU CP KITSUNNI
--- NOTE | 2018-07-21 09:18 | EKG12_ITS ---
Test Reason : ADMISSION EKG Blood Pressure : / mmHG Vent. Rate : 091 BPM Atrial Rate : 091 BPM P-R Int : 148 ms QRS Dur : 092 ms QT Int : 366 ms P-R-T Axes : 054 031 057 degrees QTc Int : 450 ms Sinus rhythm with frequent Premature ventricular complexes Confirmed by Chloé Granado ([id number]), department editor LINDA LEVINE ([id number]) on 07/25/2018 3:32:45 PM Referred By: DEB Confirmed By:Chloé Granado
--- NOTE | 2018-07-21 09:27 | ECHOD_ITS ---
Reason For Study: CHEST PAIN Procedure This was a 2D Doppler, Color Flow transthoracic echocardiogram. Exam performed portable in patient room. Left Ventricle Normal LV size. Left ventricular systolic function is normal. The estimated ejection fraction is 65 %. Stage 1 diastolic dysfunction. No regional wall motion abnormalities noted. Right Ventricle Normal right ventricle. Normal systolic function. Atria Normal left atrium. Normal right atrium. Mitral Valve Normal mitral valve. Tricuspid Valve Normal tricuspid valve. Trivial tricuspid valve insufficiency. Aortic Valve Trisinus/trileaflet aortic valve. Moderate focal aortic valve calcification. Pulmonic Valve Normal pulmonic valve. Great Vessels Normal aortic root. The pulmonary artery is normal size. Normal inferior vena cava. Pericardium/Pleural No pericardial effusion. MMode/2D Measurements & Calculations LVIDd: 3.6 cm IVSd: 0.83 cm Ao root diam: 3.0 cm LVIDs: 2.5 cm LVPWd: 0.81 cm LA dimension: 2.8 cm RVDd: 3.0 cm FS: 29.6 % LAV(MOD-bp): 24.2 ml LVAd ap4: 21.8 cm2 SV(MOD-sp4): 31.6 ml LAV(MOD-bp) Indexed: 14.9 ml/m2 EDV(MOD-sp4): 52.5 ml LAV(MOD-sp2): 31.3 ml EDV(sp4-el): 55.2 ml LAV(MOD-sp4): 16.2 ml LVAs ap4: 12.1 cm2 ESV(MOD-sp4): 20.9 ml ESV(sp4-el): 21.5 ml EF(MOD-sp4): 60.2 % EF(sp4-el): 61.0 % SV(sp4-el): 33.7 ml LA A4 area: 8.9 cm2 RA A4 area: 8.0 cm2 Time Measurements MV dec time: 0.17 sec Doppler Measurements & Calculations MV E max ezra: 60.0 cm/sec Lat Peak E' Ezra: 8.7 cm/sec Med Peak E' Ezra: 8.0 cm/sec MV A max ezra: 92.3 cm/sec E/E' lat: 6.9 E/E' med: 7.5 MV E/A: 0.65 Ao V2 max: 142.3 cm/sec LV V1 max: 140.3 cm/sec PA V2 max: 111.3 cm/sec Ao max P.3 mmHg LV V1 max P.0 mmHg Interpretation Summary Normal LV size. Left ventricular systolic function is normal. The estimated ejection fraction is 65 %. Stage 1 diastolic dysfunction. Trivial tricuspid valve insufficiency. Ordering Physician: Kolby Devine Referring Physician: Dory Johnson Performed By: Gale Mkie RDCS
--- NOTE | 2018-07-21 10:02 | CT_ITS ---
STUDY: CTA CHEST REASON FOR EXAM: Female, 78 years old. Elevated d-dimer. RADIATION DOSAGE (If Supplied By Facility): CTDIvol = ( 5.74 ) mGy, DLP = ( 192.84 ) mGycm TECHNIQUE: The examination was performed with the intravenous administration of 100 ml of Isovue 370 contrast material. Post-processing of the angiographic images was performed, with multiplanar reformation and 3D reconstruction. Individualized dose optimization techniques were used for this CT. COMPARISON: Comparison is made with prior chest radiograph done earlier in the day. 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 Normal enhancement of the main pulmonary artery and right and left pulmonary arteries. Normal enhancement of the bilateral peripheral pulmonary arteries. There is no demonstrated pulmonary embolism. There is atherosclerotic calcification of the aortic arch with tortuosity. There is no demonstrated aortic dissection. There are calcifications of the coronary arteries. Normal mediastinum. Normal hilar regions. Normal visualized trachea and bronchi. Hyperinflation. Emphysematous changes in keeping with centrilobular emphysema. Increased linear markings with areas of confluence in the lower lobes suggestive of scarring or bronchiectasis. This is worse on the right lung base. Normal pleura. Normal chest wall structures. There are degenerative changes of thoracic spine. Increased kyphosis. Normal visualized upper abdomen. CT/CTA Chest W/WO Contrast IMPRESSION: Hyperinflation and emphysematous changes. No evidence of pulmonary embolus. Scarring at the lung bases with bronchiectasis. Inhomogeneous enlargement of the left lobe of the thyroid. Electronically Signed: Roberto Carlos Laureano MD at 12:57 EDT Tel [phone], Service support ,
[2018-07-21] MEDS: Enoxaparin 40 MG/0.4 ML Syringe SC (13:22)
[2018-07-21] MEDS: Ipratropium/Albuterol Sulfate 3 ML AMPUL.NEB INHALATION ×2 (13:44→20:10)
[2018-07-21] MEDS: Budesonide Respules 0.5 MG/2 ML AMPUL.NEB. INHALATION (20:20)
[2018-07-21] MEDS: Mag Hydrox/Al Hydrox/Simeth 30 ML UDC PO (21:43)
[2018-07-22] VITALS (12 sets, daily range): BP systolic 110–118; BP diastolic 50–68; PULSE 66–91; RESP 16; TEMP 36.6–36.8; O2SAT 2–98
[2018-07-22] MEDS: Famotidine 20 MG Tablet PO ×2 (03:16→09:07)
--- NOTE | 2018-07-22 05:55 | EKG12_ITS ---
Test Reason : Blood Pressure : / mmHG Vent. Rate : 093 BPM Atrial Rate : 093 BPM P-R Int : 144 ms QRS Dur : 090 ms QT Int : 366 ms P-R-T Axes : 065 058 071 degrees QTc Int : 455 ms Sinus rhythm with frequent Premature ventricular complexes Confirmed by Chloé Granado ([id number]), editor continuity and script LINDA LEVINE ([id number]) on 07/25/2018 3:30:58 PM Referred By: Confirmed By:Chloé Granado
[2018-07-22] MEDS: Aspirin 81 MG TAB.CHEW PO (06:21)
[2018-07-22 06:26] LABS: Partial Thromboplast Time 29.6 Seconds (24.1-36.2); Prothrombin Time (Protime)PT. 13.4 SECONDS (11.7-14.9)
[2018-07-22 06:28] LABS: Absolute Lymphocyte Count 1.84 X10^3/ul (0.83-4.51); Absolute Neutrophil Count 8.3 X10^3/uL (2.0-7.7); Basophil# 0.04 X10^3/uL; Basophil% 0.3 % (0-1); Eosinophil# 0.09 X10^3/uL; Eosinophils% 0.8 % (0-5); Hematocrit 44.5 % (37-47); Hemoglobin 14.6 g/dl (12.0-15.0); Lymphocyte # 1.84 X10^3/ul (4.0); Lymphocyte % 15.7 % (19-41); Mean Corp Hgb Conc 32.8 g/gl (32-36); Mean Corpuscular Hgb 28.1 pg (27.0-32.0); Mean Corpuscular Volume 85.7 fL (81-99); Mean Platelet Vol. 11.1 fl (6.2-12.0); Monocyte# 1.45 X10^3/uL; Monocyte% 12.4 % (0-10); Neutrophil # 8.27 X10^3/uL (2.7-7.7); Neutrophil % 70.6 % (47-70); Platelet Count 218 K/mm3 (150-450); RBC Distribution Width CV 12.5 % (11.6-14.6); RBC Distribution Width SD 39.2 fl (35.1-43.9); Red Blood Count 5.19 M/mm3 (4.2-5.4); White Blood Count 11.7 K/mm3 (4.4-11.0)
[2018-07-22 06:30] LABS: POSITIVE COUNT NO; POSITIVE DIFFERENTIAL NO; POSITIVE MORPHOLOGY NO
[2018-07-22 06:38] LABS: Anion Gap 7 (5-15); BUN 17 mg/dL (7-18); Calcium,Total 9.3 mg/dL (8.5-10.1); Chloride 96 mmol/L (98-107); Creatinine, Serum 0.65 mg/dL (0.55-1.02); EST Glomerular Filtration Rate 93 mL/min (>60); Est Glom Filt Rate - Afr Amer 112 mL/min (>60); Estimated Creatinine Clearance 41.05 ml/min; Glucose 105 mg/dL (74-106); Potassium 3.8 mmol/L (3.5-5.1); Sodium Level 132 mmol/L (136-145)
[2018-07-22] MEDS: Budesonide Respules 0.5 MG/2 ML AMPUL.NEB. INHALATION ×2 (07:22→19:32)
[2018-07-22] MEDS: Ipratropium/Albuterol Sulfate 3 ML AMPUL.NEB INHALATION ×3 (07:22→19:32)
[2018-07-22] MEDS: Enoxaparin 40 MG/0.4 ML Syringe SC (09:07)
[2018-07-22] MEDS: HYDROCHLOROTHIAZIDE 12.5 MG CAPSULE PO (09:07)
--- NOTE | 2018-07-22 09:57 | PCM.PN.HOSP ---
Subjective: Patient is a 78-year admitted with pain. Placed on a monitored bed did rule out OH with serial cardiac enzymes. Plan also patient will undergo nuclear stress test however she did develop diarrhea on the morning of her procedure stress test subsequently discontinued. Patient was placed in isolation stool enteric pathogen and C. difficile sent Objective: GENERAL: cooperative HEENT: Atraumatic; moist oral mucosa EYES; Anicteric, Normal Conjunctiva NECK; supple, normal thyroid, no distended JVD. RESPIRATORY: Diminished to auscultation bilaterally, CARDIOVASCULAR: Regular S1 S2, no audible murmurs GI: soft, non-tender, normoactive bowel sounds, : No Renal angle tenderness; No vinson EXTREMITIES: No edema, no clubbing, no cyanosis. MUSCULOSKELTAL: No Joint Tenderness; no muscle waisting NEURO: Awake; no lateralizing signs. SKIN: No Rash PSYCH; Normal affect Vitals/I&O's: Vital Signs Temp Pulse Resp BP Pulse Ox 97.9 F 78 16 112/62 2 07/22/18 08:37 07/22/18 08:37 07/22/18 08:37 07/22/18 08:37 07/22/18 08:37 Oxygen Flow Rate (L/min) 2 Oxygen Delivery Method Nasal Cannula Weight: 58.1 kg Body Mass Index (BMI) 21.3 Intake and Output for Last 24 Hours 07/20/18 07/21/18 07/22/18 23:59 23:59 23:59 Intake Total 370 / 370 200 / 200 Balance 370 / 370 200 / 200 Laboratory Results 07/21/18 07:45: D-Dimer Quant (PE/DVT) 0.70 H* 07/21/18 11:26: Troponin I < 0.015 07/21/18 14:04: Troponin I < 0.015 07/22/18 06:02: Sodium 132 L, Potassium 3.8, Chloride 96 L, Carbon Dioxide 29.0, Anion Gap 7, BUN 17, Creatinine 0.65, Estim Creat Clear Calc 41.05, Est GFR (MDRD) Af Amer 112, Est GFR (MDRD) Non-Af 93, BUN/Creatinine Ratio 26.0 H, Glucose 105, Calcium 9.3 07/22/18 06:02: WBC 11.7 H, RBC 5.19, Hgb 14.6, Hct 44.5, MCV 85.7, MCH 28.1, MCHC 32.8, RDW 12.5, RDW Differential 39.2, Plt Count 218, MPV 11.1, Immature Gran % (Auto) 0.200, Neut % (Auto) 70.6 H, Lymph % (Auto) 15.7 L, Morrison % (Auto) 12.4 H, Eos % (Auto) 0.8, Baso % (Auto) 0.3, Absolute Neuts (auto) 8.3 H, Absolute Lymphs (auto) 1.84, Total Counted Not Reportable 07/22/18 06:02: PT 13.4, INR 1.0, APTT 29.6 Current Medications Al Hydroxide/Mg Hydroxide (Mylanta Ii) 30 ml PO Q6H PRN PRN PRN Reason: DYSPEPSIA Last Admin: 07/21/18 21:43 Dose: 30 ml Albuterol Sulfate (Ventolin Aerosols) 2.5 mg INHALATION Q4H PRN Albuterol/Ipratropium (Duoneb) 3 ml INHALATION Q6HWA.RT [facility] Last Admin: 07/22/18 07:22 Dose: 3 ml Aspirin (Aspirin, Baby) 81 mg PO DAILY@0800 [facility] Last Admin: 07/22/18 06:21 Dose: 81 mg Budesonide (Pulmicort Aerosol) 0.5 mg INHALATION Q12H.RT [facility] Last Admin: 07/22/18 07:22 Dose: 0.5 mg Enoxaparin Sodium (Lovenox) 40 mg SC DAILY@1000 [facility] Last Admin: 07/22/18 09:07 Dose: 40 mg Famotidine (Pepcid) 20 mg PO DAILY [facility] Last Admin: 07/22/18 09:07 Dose: 20 mg Hydrochlorothiazide (Hydrochlorothiazide) 12.5 mg PO DAILY [facility] Last Admin: 07/22/18 09:07 Dose: 12.5 mg Magnesium Hydroxide (Milk Of Magnesia) 30 ml PO DAILY PRN PRN Reason: Constipation Nicotine (Nicoderm Cq (Pbkc)) 21 mg TRANSDERM. DAILY [facility] Last Admin: 07/22/18 09:07 Dose: 21 mg Nitroglycerin (Nitrostat) 0.4 mg SUBLINGUAL Q5M PRN PRN Reason: CHEST PAIN Sodium Chloride () 5 - 30 ml IV UD PRN PRN Reason: SALINE FLUSH Medical Necessity - Tobacco Use Smoking Status: Current every day smoker Tobacco Use: Cigarettes Assessment/Plan All Active Problems (Last Reviewed 07/21/18 @ 12:04 by Kolby Devine MD) Sinusitis (Resolved) Acute exacerbation of COPD with asthma (Resolved) Small bowel obstruction (Resolved) Hives (Resolved) Leukocytosis (Resolved) Abnormal blood chemistry (Acute) Chest pain (Acute) COPD (chronic obstructive pulmonary disease) (Acute) SBO (small bowel obstruction) (Acute) Patient is a 78-year-old lady presented with chest pain 1. Chest pain:: Placed on a monitored bed; rule out for Myocardial infarction with serial cardiac enzymes and EKGs. If negative, rule out Myocardial Ischemia with nuclear medicine stress test. 2. Elevated d-dimer CTA of the chest ordered to rule out PE negative study 3. Chronic hypoxic respiratory failure on baseline home O2 secondary to COPD 4. COPD currently not in exacerbation 5. Hypertension-blood pressure controlled, home medications continued with dose adjustment as needed 6. DVT prophylaxis SC Lovenox 7. Diarrhea: Ruling out infectious etiology Clinical Impression(s) from Imaging Studies Chest X-Ray 07/21/18 07:45 IMPRESSION: Hyperinflation. Mild increased markings at the lung bases slightly more prominent at the left lung base suggestive of linear scarring. Electronically Signed: Roberto Carlos Laureano MD at 8:17 EDT Tel [phone], Service support , Chest CTA 07/21/18 10:02 IMPRESSION: Hyperinflation and emphysematous changes. No evidence of pulmonary embolus. Scarring at the lung bases with bronchiectasis. Inhomogeneous enlargement of the left lobe of the thyroid. Electronically Signed: Roberto Carlos Laureano MD at 12:57 EDT Tel [phone], Service support , Code Visit OBSV E&M: 13019 Subsequent observation care L3
--- NOTE | 2018-07-22 10:01 | PN_ITS ---
Subjective: Patient is a 78-year admitted with pain. Placed on a monitored bed did rule out OH with serial cardiac enzymes. Plan also patient will undergo nuclear stress test however she did develop diarrhea on the morning of her procedure stress test subsequently discontinued. Patient was placed in isolation stool enteric pathogen and C. difficile sent Objective: GENERAL: cooperative HEENT: Atraumatic; moist oral mucosa EYES; Anicteric, Normal Conjunctiva NECK; supple, normal thyroid, no distended JVD. RESPIRATORY: Diminished to auscultation bilaterally, CARDIOVASCULAR: Regular S1 S2, no audible murmurs GI: soft, non-tender, normoactive bowel sounds, : No Renal angle tenderness; No vinson EXTREMITIES: No edema, no clubbing, no cyanosis. MUSCULOSKELTAL: No Joint Tenderness; no muscle waisting NEURO: Awake; no lateralizing signs. SKIN: No Rash PSYCH; Normal affect Vitals/I&O's: Vital Signs Temp Pulse Resp BP Pulse Ox 97.9 F 78 16 112/62 2 07/22/18 08:37 07/22/18 08:37 07/22/18 08:37 07/22/18 08:37 07/22/18 08:37 Oxygen Flow Rate (L/min) 2 Oxygen Delivery Method Nasal Cannula Weight: 58.1 kg Body Mass Index (BMI) 21.3 Intake and Output for Last 24 Hours 07/20/18 07/21/18 07/22/18 23:59 23:59 23:59 Intake Total 370 / 370 200 / 200 Balance 370 / 370 200 / 200 Laboratory Results 07/21/18 07:45: D-Dimer Quant (PE/DVT) 0.70 H* 07/21/18 11:26: Troponin I < 0.015 07/21/18 14:04: Troponin I < 0.015 07/22/18 06:02: Sodium 132 L, Potassium 3.8, Chloride 96 L, Carbon Dioxide 29.0, Anion Gap 7, BUN 17, Creatinine 0.65, Estim Creat Clear Calc 41.05, Est GFR (MDRD) Af Amer 112, Est GFR (MDRD) Non-Af 93, BUN/Creatinine Ratio 26.0 H, Glucose 105, Calcium 9.3 07/22/18 06:02: WBC 11.7 H, RBC 5.19, Hgb 14.6, Hct 44.5, MCV 85.7, MCH 28.1, MCHC 32.8, RDW 12.5, RDW Differential 39.2, Plt Count 218, MPV 11.1, Immature Gran % (Auto) 0.200, Neut % (Auto) 70.6 H, Lymph % (Auto) 15.7 L, [place] % (Auto) 12.4 H, Eos % (Auto) 0.8, Baso % (Auto) 0.3, Absolute Neuts (auto) 8.3 H, Absol mark Lymphs (auto) 1.84, Total Counted Not Reportable 07/22/18 06:02: PT 13.4, INR 1.0, APTT 29.6 Current Medications Al Hydroxide/Mg Hydroxide (Mylanta Ii) 30 ml PO Q6H PRN PRN PRN Reason: DYSPEPSIA Last Admin: 07/21/18 21:43 Dose: 30 ml Albuterol Sulfate (Ventolin Aerosols) 2.5 mg INHALATION Q4H PRN Albuterol/Ipratropium (Duoneb) 3 ml INHALATION Q6HWA.RT [facility] Last Admin: 07/22/18 07:22 Dose: 3 ml Aspirin (Aspirin, Baby) 81 mg PO DAILY@0800 [facility] Last Admin: 07/22/18 06:21 Dose: 81 mg Budesonide (Pulmicort Aerosol) 0.5 mg INHALATION Q12H.RT [facility] Last Admin: 07/22/18 07:22 Dose: 0.5 mg Enoxaparin Sodium (Lovenox) 40 mg SC DAILY@1000 [facility] Last Admin: 07/22/18 09:07 Dose: 40 mg Famotidine (Pepcid) 20 mg PO DAILY [facility] Last Admin: 07/22/18 09:07 Dose: 20 mg Hydrochlorothiazide (Hydrochlorothiazide) 12.5 mg PO DAILY [facility] Last Admin: 07/22/18 09:07 Dose: 12.5 mg Magnesium Hydroxide (Milk Of Magnesia) 30 ml PO DAILY PRN PRN Reason: Constipation Nicotine (Nicoderm Cq (Pbkc)) 21 mg TRANSDERM. DAILY [facility] Last Admin: 07/22/18 09:07 Dose: 21 mg Nitroglycerin (Nitrostat) 0.4 mg SUBLINGUAL Q5M PRN PRN Reason: CHEST PAIN Sodium Chloride () 5 - 30 ml IV UD PRN PRN Reason: SALINE FLUSH Medical Necessity - Tobacco Use Smoking Status: Current every day smoker Tobacco Use: Cigarettes Assessment/Plan All Active Problems (Last Reviewed 07/21/18 @ 12:04 by Kolby Devine MD) Sinusitis (Resolved) Acute exacerbation of COPD with asthma (Resolved) Small bowel obstruction (Resolved) Hives (Resolved) Leukocytosis (Resolved) Abnormal blood chemistry (Acute) Chest pain (Acute) COPD (chronic obstructive pulmonary disease) (Acute) SBO (small bowel obstruction) (Acute) Patient is a 78-year-old lady presented with chest pain 1. Chest pain:: Placed on a monitored bed; rule out for Myocardial infarction with serial cardiac enzymes and EKGs. If negative, rule out Myocardial Ischemia with nuclear medicine stress test. 2. Elevated d-dimer CTA of the chest ordered to rule out PE negative study 3. Chronic hypoxic respiratory failure on baseline home O2 secondary to COPD 4. COPD currently not in exacerbation 5. Hypertension-blood pressure controlled, home medications continued with dose adjustment as needed 6. DVT prophylaxis SC Lovenox 7. Diarrhea: Ruling out infectious etiology Clinical Impression(s) from Imaging Studies Chest X-Ray 07/21/18 07:45 IMPRESSION: Hyperinflation. Mild increased markings at the lung bases slightly more prominent at the left lung base suggestive of linear scarring. Electronically Signed: Roberto Carlos Laureano MD at 8:17 EDT Tel [phone], Service support , Chest CTA 07/21/18 10:02 IMPRESSION: Hyperinflation and emphysematous changes. No evidence of pulmonary embolus. Scarring at the lung bases with bronchiectasis. Inhomogeneous enlargement of the left lobe of the thyroid. Electronically Signed: Roberto Carlos Laureano MD at 12:57 EDT Tel [phone], Service support , Code Visit OBSV E&M: 47294 Subsequent observation care L3
[2018-07-22] MEDS: 0.9% NaCl Peripheral Flush Adult/Peds IV (17:56)
--- NOTE | 2018-07-22 19:35 | NURSING ---
Informed shift supervisor film processing nurse that patient doesn't have CHF according to medical history. Obtain order for fluid hydration for Dr. Bravo per his request.
[2018-07-23 02:30] VITALS: BP 106/45; PULSE 82; RESP 16; TEMP 36.7; O2SAT 97
[2018-07-23 03:00] VITALS: PULSE 74
[2018-07-23 05:13] VITALS: BP 113/55; PULSE 80; RESP 16; TEMP 36.5; O2SAT 96
[2018-07-23 07:00] VITALS: PULSE 68
[2018-07-23 07:19] VITALS: PULSE 77; RESP 20; O2SAT 97
[2018-07-23] MEDS: Ipratropium/Albuterol Sulfate 3 ML AMPUL.NEB INHALATION (07:19)
[2018-07-23] MEDS: Budesonide Respules 0.5 MG/2 ML AMPUL.NEB. INHALATION (07:19)
--- NOTE | 2018-07-23 08:25 | DCINST_ITS ---
You will use the following diet at home:: No restrictions Allergies/Adverse Reactions: Allergies amoxicillin [From Augmentin] Allergy (Verified 07/21/18 08:32) Unknown ciprofloxacin Allergy (Verified 07/21/18 08:32) Unknown clavulanic acid [From Augmentin] Allergy (Verified 07/21/18 08:32) Unknown dextromethorphan Allergy (Verified 07/21/18 08:32) Hives levofloxacin [From Levaquin] Allergy (Verified 07/21/18 08:32) Anaphylaxis niacin Allergy (Verified 07/21/18 08:32) Pain in joints nitrofurantoin Allergy (Verified 07/21/18 08:32) Unknown prednisone Allergy (Verified 07/21/18 08:32) Hives propoxyphene Allergy (Verified 07/21/18 08:32) Unknown Sulfa (Sulfonamide Antibiotics) Allergy (Verified 07/21/18 08:32) Hives sulfamethoxazole [From Bactrim] Allergy (Verified 07/21/18 08:32) Hives tetracycline Allergy (Verified 07/21/18 08:32) Unknown trimethoprim [From Bactrim] Allergy (Verified 07/21/18 08:32) Hives clarithromycin [From Biaxin] Adverse Reaction (Mild, Verified 07/21/18 08:32) Rash codeine Adverse Reaction (Verified 07/21/18 08:32) Nausea ANALOGUES Allergy (Uncoded 07/21/18 08:32) Unknown dextromethorphan-guaifenesin Allergy (Uncoded 07/21/18 08:32) Hives macrocryst Allergy (Uncoded 07/21/18 08:32) Unknown Medications to take at Discharge Aspirin [Aspirin, Baby] 81 mg PO DAILY@0800 08/03/17 Hydrochlorothiazide [Hctz] 12.5 mg PO DAILY 08/03/17 Tiotropium [place] [Spiriva 18 MCG] 1 puff INHALATION DAILY 08/03/17 Albuterol Inhaler [Ventolin Hfa] 1 - 2 puff INHALATION Q4H PRN PRN #1 inhaler 08/06/17 budesonide-formoterol HFA 160 mcg-4.5 mcg/actuation aerosol inhaler 1 puff INHALATION BID g 05/26/18 polyethylene glycol 3350 17 gram oral powder packet 17 g PO QDAY 05/26/18 Pantoprazole Sodium [Protonix] 40 mg PO DAILY #60 tablet 07/23/18 The following prescriptions were given: Pantoprazole Sodium [Protonix] 40 mg PO DAILY #60 tablet Primary Care Physician: Dory Johnson DO [Primary Care Provider] - Please follow up with your Primary Care Physician in: in 2-3 days to arrange for outpatient stress test Test Results: Test results from this visit will be discussed in further detail at your follow- up appointment, if applicable. Proposed Discharge Date: 07/23/18
[2018-07-23] MEDS: HYDROCHLOROTHIAZIDE 12.5 MG CAPSULE PO (08:53)
[2018-07-23] MEDS: Aspirin 81 MG TAB.CHEW PO (08:53)
[2018-07-23] MEDS: Famotidine 20 MG Tablet PO (08:54)
[2018-07-23] MEDS: Enoxaparin 40 MG/0.4 ML Syringe SC (08:54)
[2018-07-23 09:00] VITALS: BP 127/54; PULSE 84; RESP 18; TEMP 36.6; O2SAT 94
--- NOTE | 2018-07-23 09:54 | DS.PCM_ITS ---
Discharge Date and Diagnosis Date of Admission: 07/21/18 Date of Discharge: 07/23/18 - Primary Discharge Diagnosis Chest pain Epigastric discomfort - Secondary Discharge Diagnosis Chronic Problems (Last Reviewed 07/21/18 @ 12:04 by Kolby Devine MD) History of foot surgery (Chronic) History of arthroscopy of left knee (Chronic) History of tubal ligation (Chronic) History of cholecystectomy (Chronic) Anxiety (Chronic) Hyperglyceridemia (Chronic) Smoker (Chronic) Bronchitis (Chronic) Allergic rhinitis (Chronic) COPD (chronic obstructive pulmonary disease) (Chronic) HTN (hypertension) (Chronic) Low HDL (under 40) (Chronic) Hypoxemia (Chronic) Osteoporosis (Chronic) Hypothyroidism (Chronic) GERD (gastroesophageal reflux disease) (Chronic) Diverticulosis of colon (Chronic) SOB (shortness of breath) (Chronic) PVD (peripheral vascular disease) (Chronic) Nephrolithiasis (Chronic) History of cervical cancer (Chronic) HTN (hypertension) (Chronic) Hospital Course and Treatment Imaging Results: Clinical Impression(s) from Imaging Studies Chest X-Ray 07/21/18 07:45 IMPRESSION: Hyperinflation. Mild increased markings at the lung bases slightly more prominent at the left lung base suggestive of linear scarring. Electronically Signed: Roberto Carlos Laureano MD at 8:17 EDT Tel [phone], Service support , Chest CTA 07/21/18 10:02 IMPRESSION: Hyperinflation and emphysematous changes. No evidence of pulmonary embolus. Scarring at the lung bases with bronchiectasis. Inhomogeneous enlargement of the left lobe of the thyroid. Electronically Signed: Roberto Carlos Laureano MD at 12:57 EDT Tel [phone], Service support , Operations: None Summary of Care Provided: Patient is a 78-year-old lady presented with chest pain 1. Chest pain:: Placed on a monitored bed; did rule out myocardial infarction with serial cardiac enzymes. Plan was for patient to have undergone a nuclear stress test on 07/22/2018 however she did develop diarrhea on the morning of the scheduled procedure which had to be canceled. Stress test was not offered on the morning of 07/23/2018. Patient was informed of this she requested to be discharged home. She was instructed to follow-up with her primary care physicia n for stress test to be scheduled as an outpatient to complete her workup 2. Elevated d-dimer CTA of the chest ordered to rule out PE: Study negative 3. Chronic hypoxic respiratory failure on baseline home O2 secondary to COPD 4. COPD currently not in exacerbation 5. Hypertension-blood pressure controlled, home medications continued with dose adjustment as needed 6. DVT prophylaxis SC Lovenox 7. Diarrhea: did Rule out infectious etiology with stool studies Examination on the day of discharge GENERAL: cooperative HEENT: Atraumatic; moist oral mucosa EYES; Anicteric, Normal Conjunctiva NECK; supple, normal thyroid, no distended JVD. RESPIRATORY: Diminished to auscultation bilaterally, CARDIOVASCULAR: Regular S1 S2, no audible murmurs GI: soft, non-tender, normoactive bowel sounds, : No Renal angle tenderness; No vinson EXTREMITIES: No edema, no clubbing, no cyanosis. MUSCULOSKELTAL: No Joint Tenderness; no muscle waisting NEURO: Awake; no lateralizing signs. SKIN: No Rash PSYCH; Normal affect Discharge Diet: No Restrictions Discharge Activity: Return to Normal Activity Home Medications: Medications to take at Discharge Aspirin [Aspirin, Baby] 81 mg PO DAILY@0800 08/03/17 Hydrochlorothiazide [Hctz] 12.5 mg PO DAILY 08/03/17 Tiotropium [place] [Spiriva 18 MCG] 1 puff INHALATION DAILY 08/03/17 Albuterol Inhaler [Ventolin Hfa] 1 - 2 puff INHALATION Q4H PRN PRN #1 inhaler 08/06/17 budesonide-formoterol HFA 160 mcg-4.5 mcg/actuation aerosol inhaler 1 puff INHALATION BID g 05/26/18 polyethylene glycol 3350 17 gram oral powder packet 17 g PO QDAY 05/26/18 Pantoprazole Sodium [Protonix] 40 mg PO DAILY #60 tablet 07/23/18 Following Prescrptions Were Given to Patient: Pantoprazole Sodium [Protonix] 40 mg PO DAILY #60 tablet Primary Care Physician: Dory Johnson DO [Primary Care Provider] - Please follow up with your Primary Care Physician in: in 2-3 days to arrange for outpatient stress test Disposition: Home Minutes spent on discharge:: 35 Patient Condition:: Stable Medical Necessity - Tobacco Use Smoking Status: Current every day smoker Tobacco Use: Cigarettes Meaningful Use Info Meaningful Use Diagnoses (Choose all that apply): None applicable Code Visit OBSV E&M: 34625 Observation care discharge
== END 2018-07-23 08:25 | disposition home or self-care (01) ==
LOC: ED 08:16 → PCU 09:08
PROVIDERS: Admitting Provider Internal Medicine; Emergency Provider Emergency Medicine; Family Provider Internal Medicine; PCP Internal Medicine; Visit Provider Internal Medicine
DX: R07.89 Other chest pain (principal); I10 Essential (primary) hypertension; K21.9 Gastro-esophageal reflux disease without esophagitis; J44.9 Chronic obstructive pulmonary disease, unspecified; Z99.81 Dependence on supplemental oxygen; Z79.899 Other long term (current) drug therapy; Z79.82 Long term (current) use of aspirin; J96.11 Chronic respiratory failure with hypoxia; F17.210 Nicotine dependence, cigarettes, uncomplicated
CPT/HCPCS: 36415; 71045; 71275; 80048; 84484; 85025; 85379; 85610; 85730; 87493; 87506; 93005; 93306; 94640; 96372; 99218; 99251; 99285; 99406; J7030; Q9967; A4216; G0378; G0463

== ENCOUNTER 2018-12-26 07:28 | Observation (INO) | payer MEDICARE, SELFPAY ==
[2018-09-14 13:37] VITALS: BMI 20.6
[2018-12-26] VITALS (16 sets, daily range): BP systolic 111–164; BP diastolic 54–81; PULSE 72–120; RESP 16–36; TEMP 36.6–37.2; O2SAT 85–98; BMI 22.1; BMI 20.6
--- NOTE | 2018-12-26 07:42 | EKG12_ITS ---
Test Reason : SOB Blood Pressure : / mmHG Vent. Rate : 109 BPM Atrial Rate : 109 BPM P-R Int : 132 ms QRS Dur : 090 ms QT Int : 312 ms P-R-T Axes : 052 043 061 degrees QTc Int : 420 ms Sinus tachycardia with frequent Premature ventricular complexes Otherwise normal ECG Confirmed by CURRY ALDRICH ([id number]), fan mail editor LINDA LEVINE ([id number]) on 12/30/2018 1:37:55 PM Referred By: [email or web address] Confirmed By:CURRY ALDRICH
[2018-12-26] MEDS: MethylPREDNISolone 125 MG/2 ML Vial IV (07:49)
[2018-12-26] MEDS: Albuterol 2.5 MG/3 ML VIAL.NEB. INHALATION (08:05)
[2018-12-26] MEDS: Ipratropium/Albuterol Sulfate 3 ML AMPUL.NEB INHALATION ×4 (08:05→23:51)
--- NOTE | 2018-12-26 08:07 | ED.DCSUM_ITS ---
- ER Visit Summary Date of Service: 12/26/18 Chief Complaint: Dyspnea History of Present Illness: The patient is a 78 F who arrives by EMS. EMS notes she was 84% on her 2 L at home. The patient states that she began to feel ill on Wednesday afternoon developing shortness of breath. She developed a worsening cough throughout the weekend. She notes minimal sputum production. She is tried aerosols. She has a history of COPD and sees Dr. Wellington for pulmonology. No vomiting or diarrhea. No fevers. No rashes. Physical Examination: 164/81 heart rate of 110 respirations are 31. Pulse ox is 93% on 4 L. Afebrile at 98.9 orally Gen: Well-nourished well-developed Head: Normocephalic atraumatic Eyes: Perrl EOMI ENT: TMs clear no rhinorrhea moist mucous membranes Neck: Supple no lymphadenopathy no JVD nontender CVS: Regular rate rhythm no murmurs normal S1-S2 Respiratory: Mild to moderate distress. Patient has inspiratory expiratory wheezing and rhonchi bilaterally chest nontender Abdomen: Soft nontender nondistended normal bowel sounds no masses Back: Nontender Extremity: Nontender no edema Skin: Normal color no rash Neuro: alert orientated ?3 CN II-XII intact normal strength sensation Psych: Normal affect normal mood Test Results: EKG demonstrates a sinus tachycardia at a rate of 109 with frequent PVCs. Influenza was negative. Lactic acid 1.1. Troponin negative. Chest x-ray showed chronic changes. CT Kyra of the chest showed no pulmonary embolism. Emergency Department Course and Treatment: Received breathing treatments (between EMS albuterol in the 1 albuterol and DuoNeb she received a total of 3) and Solu-Medrol. Patient's breathing is improved but she still has a quiet tachypnea. The wheezing is less. We have been able to turn her oxygen down to 2 L and she is 96% at rest. However when the patient ambulates she drops to 88% and is labored. Therefore the patient will be admitted for further care Impression: 1. COPD exacerbation 2. Hypoxemia. This note was generated with [employer] dictation software. It may contain incorrect words, spelling, and punctuation that were not noted in review of the chart prior to signing ED Disposition - Plan for ED Patient: Referrals: Dory Johnson DO [Primary Care Provider] -
[2018-12-26 08:12] LABS: Absolute Lymphocyte Count 1.24 X10^3/ul (0.83-4.51); Absolute Neutrophil Count 5.6 X10^3/uL (2.0-7.7); Basophil# 0.02 X10^3/uL; Basophil% 0.2 % (0-1); Eosinophil# 0.02 X10^3/uL; Eosinophils% 0.2 % (0-5); Hematocrit 45.3 % (37-47); Lymphocyte # 1.24 X10^3/ul (4.0); Lymphocyte % 14.9 % (19-41); Mean Corp Hgb Conc 30.9 g/gl (32-36); Mean Corpuscular Hgb 27.7 pg (27.0-32.0); Mean Corpuscular Volume 89.5 fL (81-99); Mean Platelet Vol. 11.9 fl (6.2-12.0); Monocyte# 1.44 X10^3/uL; Monocyte% 17.3 % (0-10); Neutrophil % 67.2 % (47-70); Platelet Count 162 K/mm3 (150-450); RBC Distribution Width CV 13.2 % (11.6-14.6); RBC Distribution Width SD 43.1 fl (35.1-43.9); Red Blood Count 5.06 M/mm3 (4.2-5.4); White Blood Count 8.3 K/mm3 (4.4-11.0)
[2018-12-26 08:15] LABS: POSITIVE COUNT NO; POSITIVE DIFFERENTIAL NO; POSITIVE MORPHOLOGY NO
[2018-12-26 08:22] LABS: International Normalized Ratio 1.1; Prothrombin Time (Protime)PT. 13.8 SECONDS (11.7-14.9)
[2018-12-26 08:23] LABS: Partial Thromboplast Time 33.4 Seconds (24.1-36.2)
[2018-12-26 08:29] LABS: Anion Gap 9 (5-15); BUN 22 mg/dL (7-18); BUN/Creat Ratio 28.3 RATIO (10-20); Calcium,Total 9.2 mg/dL (8.5-10.1); Chloride 95 mmol/L (98-107); Creatinine, Serum 0.78 mg/dL (0.55-1.02); EST Glomerular Filtration Rate 76 mL/min (>60); Est Glom Filt Rate - Afr Amer 92 mL/min (>60); Estimated Creatinine Clearance 41.05 ml/min; Glucose 118 mg/dL (74-106); Lactic Acid 1.1 mmol/L (0.4-2.0); Potassium 4.1 mmol/L (3.5-5.1); Sodium Level 136 mmol/L (136-145)
[2018-12-26 08:30] LABS: AST(SGOT) 24 U/L (15-37); Alanine Aminotransfer ALT/SGPT 21 U/L (13-56); Albumin, Serum 3.6 g/dL (3.2-5.0); Alkaline Phosphatase 86 U/L (45-117); Bilirubin, Direct 0.09 mg/dL (0.00-0.30); Globulin 3.9 g/dL (2.2-4.2); Protein, Total 7.5 g/dL (6.4-8.2)
--- NOTE | 2018-12-26 08:50 | RAD_ITS ---
STUDY: X-RAY CHEST REASON FOR EXAM: Female, 78 years old. Shortness of breath. TECHNIQUE: PA and lateral views of the chest. COMPARISON: Comparison is made with prior study dated July 21, 2018. FINDINGS: EKG electrodes are seen. Hyperinflation. There is evidence of increasing interstitial markings in both lungs suggestive of mild degree of CHF. There is blunting of both costophrenic angles incomplete with small bilateral pleural effusions. Normal size heart. Normal mediastinum and ignacio. Normal visualized pulmonary arteries. Normal visualized aortic arch and descending thoracic aorta. There are diffuse degenerative changes of the visualized thoracic spine. Mild levoscoliosis. Increased kyphosis. Normal visualized ribs, clavicles, and shoulders. There is no demonstrated abnormality of the visualized soft tissue structures of the upper abdomen. RAD/Chest PA and Lateral IMPRESSION: Hyperinflation. Increased interstitial markings in keeping with mild degree of CHF. Electronically Signed: Roberto Carlos Laureano, at 9:14 EST , Service support ,
--- NOTE | 2018-12-26 09:21 | CT_ITS ---
STUDY: CTA CHEST REASON FOR EXAM: Female, 78 years old. 3 day history of cough. History of COPD and shortness of breath. Emphysema. History of a cervical carcinoma. RADIATION DOSAGE (If Supplied By Facility): CTDIvol = ( 6.28 ) mGy, DLP = ( 152.98 ) mGycm TECHNIQUE: The examination was performed with the intravenous administration of Isovue 300 100 IV. Post-processing of the angiographic images was performed, with multiplanar reformation and 3D reconstruction. Individualized dose optimization techniques were used for this CT. COMPARISON: Comparison is made with prior examination dated July 21, 2018. FINDINGS: Once again, there is diffuse inhomogeneous enlargement of the left lobe of the thyroid with substernal extension. Normal enhancement of the main pulmonary artery and right and left pulmonary arteries. Normal enhancement of the bilateral peripheral pulmonary arteries. There is no demonstrated pulmonary embolism. There is atherosclerotic calcification of the aortic arch with tortuosity. There is no demonstrated aortic dissection. Normal heart and pericardium. Normal mediastinum. Mild enlargement of the hilar lymph nodes bilaterally. Normal visualized trachea and bronchi. Hyperinflation. Diffuse emphysematous changes. Mild scarring in the upper lobes as well as in the lower lobes worse in the posterior medial segment of the right lower lobe. New atelectasis and/or infiltrate in the right lower lobe. Normal pleura. Normal chest wall structures. There are degenerative changes of thoracic spine. Hiatal hernia. CT/CTA Chest W/WO Contrast IMPRESSION: No evidence of pulmonary embolism. Emphysematous changes with atelectasis and/or scarring in the right lower lobe. Mild enlargement of the bilateral hilar lymph nodes. Electronically Signed: Roberto Carlos Laureano, at 10:33 EST , Service support ,
--- NOTE | 2018-12-26 14:28 | CASEMGMT ---
Social Work Note Per director of graduate admissions questions, pt has completed advanced directives but hasn't provided copies to [facility] but is able to bring in copies. Amada Manley TEMPLATE REPRODUCTION TECHNICIAN, TIRE TRIMMER HAND
--- NOTE | 2018-12-26 14:57 | PCM.HP.STD ---
Problem List (1) History of foot surgery Status: Chronic (2) History of arthroscopy of left knee Status: Chronic (3) History of tubal ligation Status: Chronic (4) History of cholecystectomy Status: Chronic (5) Anxiety Status: Chronic (6) Smoker Status: Chronic (7) Allergic rhinitis Status: Chronic (8) COPD (chronic obstructive pulmonary disease) Status: Chronic (9) Low HDL (under 40) Status: Chronic (10) Hypoxemia Status: Chronic (11) Osteoporosis Status: Chronic (12) Hypothyroidism Status: Chronic (13) GERD (gastroesophageal reflux disease) Status: Chronic (14) Diverticulosis of colon Status: Chronic (15) PVD (peripheral vascular disease) Status: Chronic (16) Nephrolithiasis Status: Chronic (17) History of cervical cancer Status: Chronic (18) HTN (hypertension) Status: Chronic (19) SBO (small bowel obstruction) Status: Resolved History of Present Illness Date of Admission: 12/26/18 Chief Complaint: Shortness of breath. The patient is a 78 year old F who presents emergency room due to shortness of breath and cough. Patient reports she has had increased shortness of breath since Wednesday afternoon. She complains of cough which is nonproductive. Denies fever, chills. Denies exposure to sick contacts. She chronically wears 2L nasal cannula at baseline and reports her oxygen saturation was 87% on her baseline O2. She denies other associated symptoms. She has a past medical history of COPD with chronic hypoxic respiratory failure, hypertension, hyperlipidemia, hypothyroidism, GERD, PVD, history of cervical cancer status post chemo and radiation, tobacco dependence. She is a current half pack per day smoker. She follows with Dr. Wellington, pulmonary medicine. Past Medical History Past Medical History (Chronic Problems): Chronic Problems (Last Reviewed 09/14/18 @ 16:04 by Martha Washington NP-C) History of foot surgery (Chronic) History of arthroscopy of left knee (Chronic) History of tubal ligation (Chronic) History of cholecystectomy (Chronic) Anxiety (Chronic) Smoker (Chronic) Allergic rhinitis (Chronic) COPD (chronic obstructive pulmonary disease) (Chronic) Low HDL (under 40) (Chronic) Hypoxemia (Chronic) Osteoporosis (Chronic) Hypothyroidism (Chronic) GERD (gastroesophageal reflux disease) (Chronic) Diverticulosis of colon (Chronic) PVD (peripheral vascular disease) (Chronic) Nephrolithiasis (Chronic) History of cervical cancer (Chronic) HTN (hypertension) (Chronic) Medical History: Medical History (Last Reviewed 09/14/18 @ 16:04 by CAREMN Benitez) Anxiety (Chronic) F41.9 Smoker (Chronic) F17.200 Allergic rhinitis (Chronic) J30.9 COPD (chronic obstructive pulmonary disease) (Chronic) J44.9 Low HDL (under 40) (Chronic) E78.6 Hypoxemia (Chronic) R09.02 Osteoporosis (Chronic) M81.0 Hypothyroidism (Chronic) E03.9 GERD (gastroesophageal reflux disease) (Chronic) K21.9 Diverticulosis of colon (Chronic) K57.30 PVD (peripheral vascular disease) (Chronic) I73.9 Nephrolithiasis (Chronic) N20.0 Allergies amoxicillin [From Augmentin] Allergy (Verified 12/26/18 08:15) Unknown ciprofloxacin Allergy (Verified 12/26/18 08:15) Unknown clavulanic acid [From Augmentin] Allergy (Verified 12/26/18 08:15) Unknown dextromethorphan Allergy (Verified 12/26/18 08:15) Hives levofloxacin [From Levaquin] Allergy (Verified 12/26/18 08:15) Anaphylaxis niacin Allergy (Verified 12/26/18 08:15) Pain in joints nitrofurantoin Allergy (Verified 12/26/18 08:15) Unknown prednisone Allergy (Verified 12/26/18 08:15) Hives propoxyphene Allergy (Verified 12/26/18 08:15) Unknown Sulfa (Sulfonamide Antibiotics) Allergy (Verified 12/26/18 08:15) Hives sulfamethoxazole [From Bactrim] Allergy (Verified 12/26/18 08:15) Hives tetracycline Allergy (Verified 12/26/18 08:15) Unknown trimethoprim [From Bactrim] Allergy (Verified 12/26/18 08:15) Hives clarithromycin [From Biaxin] Adverse Reaction (Mild, Verified 12/26/18 08:15) Rash codeine Adverse Reaction (Verified 12/26/18 08:15) Nausea ANALOGUES Allergy (Uncoded 12/26/18 08:15) Unknown dextromethorphan-guaifenesin Allergy (Uncoded 12/26/18 08:15) Hives macrocryst Allergy (Uncoded 12/26/18 08:15) Unknown Home Medications: Ambulatory Orders Medication Instructions Recorded Aspirin [Aspirin, Baby] 81 mg PO DAILY@0800 08/03/17 Hydrochlorothiazide [Hctz] 12.5 mg PO DAILY 08/03/17 Tiotropium [place] [Spiriva 18 MCG] 1 puff INHALATION DAILY 08/03/17 Albuterol Inhaler [Ventolin Hfa] 1 - 2 puff INHALATION Q4H PRN PRN 08/06/17 #1 inhaler budesonide-formoterol HFA 160 1 puff INHALATION BID g 05/26/18 mcg-4.5 mcg/actuation aerosol inhaler polyethylene glycol 3350 17 gram 17 g PO QDAY 05/26/18 oral powder packet Surgical History: Surgical History (Last Reviewed 09/14/18 @ 16:04 by CARMEN Benitez) History of foot surgery (Chronic) Z98.890 History of arthroscopy of left knee (Chronic) Z98.890 History of tubal ligation (Chronic) Z98.51 History of cholecystectomy (Chronic) Z90.49 Surgical History: - - cervical cancer radiation and surgery , cholecystectemy, appendectomy. Psychiatric History: No pertinent psych hx FLIGHT COMMUNICATIONS SPECIALIST History: No pertinent FLIGHT COMMUNICATIONS SPECIALIST history Smoking Status: Current every day smoker Alcohol: None Drugs: None - *Family History Maternal History Items: Heart Disease Paternal History Items: COPD Review of Systems Constitutional: Denies: Chills, Fever, Weight Change HEENT: Denies: Head Aches, Sinus Congestion, Sinus Drainage Cardiovascular: Denies: Chest Pain, Edema, Light Headedness, Palpitations Respiratory: Reports: Cough, Shortness of Breath, Wheezing. Denies: Sputum production Gastrointestinal: Denies: Abdominal Pain, Nausea, Vomiting Genitourinary: Denies: Dysuria Musculoskeletal: Denies: Joint Pain, Joint Tenderness Skin: Denies: Rash, Wounds Neurological: Denies: Numbness, Tingling, Focal weakness Psychiatric: Denies: Anxiety, Depression, Homicidal Ideations, Suicidal Ideations Hematologic/ Lymphatic: Denies: Easy Bruising, Easy Bleeding VTE Information - Inpt Only VTE Present on Admission: No VTE Mechan Device Prophylaxis: None VTE Pharm Prophylaxis ordered?: Yes - Physical Exam General: Alert, Oriented x3, Cooperative HEENT: Atraumatic, PERRLA, EOMI, Normocephalic Oral: Dry Mucosa Neck: Supple, No JVD, Negative Carotid Bruits Lungs: Diminished, Wheezes Cardiovascular: Regular rate, Regular Rhythm, Normal S1, Normal S2, No murmurs Abdomen: Bowel Sounds Present, Soft, Non Tender, Non-Distended Extremities: No clubbing, No cyanosis, No edema, Capillary Refill Less than 3 Seconds Skin: No rashes, No breakdown Musculoskeletal: No Tenderness to Palpation of Joints or Extremities Neurological: Cranial nerves II-XII grossly intact, Neuro grossly intact Psych/Mental Status: Normal Affect, Appropriate Vital Signs Temp Pulse Resp BP Pulse Ox 98.4 F 99 18 119/61 96 12/26/18 12:54 12/26/18 12:54 12/26/18 12:54 12/26/18 12:54 12/26/18 12:54 Oxygen Flow Rate (L/min) 2 Oxygen Delivery Method Nasal Cannula Weight: 124 lb Body Mass Index (BMI) 20.6 Microbiology Past 72 Hours 12/26/18 07:45 Influenza Types A,B Direct FA ([place]UPE) - Final Mucosa - Nose Laboratory Tests Past 24 Hrs 12/26/18 12/26/18 12/26/18 07:55 07:55 07:55 WBC 8.3 RBC 5.06 Hgb 14.0 Hct 45.3 MCV 89.5 MCH 27.7 MCHC 30.9 L RDW 13.2 RDW Differential 43.1 Plt Count 162 MPV 11.9 Immature Gran % (Auto) 0.200 Neut % (Auto) 67.2 Lymph % (Auto) 14.9 L [place] % (Auto) 17.3 H Eos % (Auto) 0.2 Baso % (Auto) 0.2 Absolute Neuts (auto) 5.6 Absolute Lymphs (auto) 1.24 Total Counted Not Reportable PT 13.8 INR 1.1 APTT 33.4 Sodium Potassium Chloride Carbon Dioxide Anion Gap BUN Creatinine Estim Creat Clear Calc Est GFR (MDRD) Af Amer Est GFR (MDRD) Non-Af BUN/Creatinine Ratio Glucose Lactic Acid Calcium Total Bilirubin 0.30 Direct Bilirubin 0.09 AST 24 ALT 21 Alkaline Phosphatase 86 Troponin I Total Protein 7.5 Albumin 3.6 Globulin 3.9 12/26/18 12/26/18 07:55 07:55 WBC RBC Hgb Hct MCV MCH MCHC RDW RDW Differential Plt Count MPV Immature Gran % (Auto) Neut % (Auto) Lymph % (Auto) [place] % (Auto) Eos % (Auto) Baso % (Auto) Absolute Neuts (auto) Absolute Lymphs (auto) Total Counted PT INR APTT Sodium 136 Potassium 4.1 Chloride 95 L Carbon Dioxide 32.0 Anion Gap 9 BUN 22 H Creatinine 0.78 Estim Creat Clear Calc 41.05 Est GFR (MDRD) Af Amer 92 Est GFR (MDRD) Non-Af 76 BUN/Creatinine Ratio 28.3 H Glucose 118 H Lactic Acid 1.1 Calcium 9.2 Total Bilirubin Direct Bilirubin AST ALT Alkaline Phosphatase Troponin I < 0.015 Total Protein Albumin Globulin Assessment/Plan All Active Problems (Last Reviewed 09/14/18 @ 16:04 by Martha Washington NP-C) SBO (small bowel obstruction) (Resolved) 1. COPD exacerbation with chronic hypoxic respiratory failure-chronically wears 2 L nasal cannula at baseline. Check respiratory panel. Influenza negative. Chest CTA with no evidence of pulmonary embolism. Emphysematous changes with atelectasis and/or scarring in the right lower lobe. Albuterol and DuoNeb aerosols. IV Solu-Medrol. Continue supplement oxygen to maintain O2 at or above 90%. Follows with Dr. Wellington, pulmonary medicine. 2. Hypertension-stable, continue home HCTZ regimen. 3. Hyperlipidemia-not on statin. 4. Tobacco dependence-encouraged smoking cessation. Nicotine replacement patch. 5. Hypothyroidism-continue Synthroid regimen. 6. GERD-not on regimen. 7. PVD-continue aspirin, not on statin. 8. History of cervical cancer DVT prophylaxis-heparin subcu This patient was seen by CARMEN Bernabe under the supervision of Dr. Nur.
[2018-12-26] MEDS: Heparin Injection (Vial) 5,000 UNIT/ML VIAL 5000 UNIT SC ×2 (15:11→21:31)
[2018-12-27] VITALS (9 sets, daily range): BP systolic 135–138; BP diastolic 65–72; PULSE 77–104; RESP 18–24; TEMP 36.7–36.9; O2SAT 93–98
[2018-12-27] MEDS: Ipratropium/Albuterol Sulfate 3 ML AMPUL.NEB INHALATION ×3 (04:15→13:43)
[2018-12-27] MEDS: Heparin Injection (Vial) 5,000 UNIT/ML VIAL 5000 UNIT SC (06:14)
[2018-12-27] MEDS: 0.9% NaCl Peripheral Flush Adult/Peds IV (06:20)
[2018-12-27] MEDS: Aspirin 81 MG TAB.CHEW PO (09:08)
[2018-12-27] MEDS: hydroCHLOROthiazide 12.5mg 12.5 MG PO (09:08)
--- NOTE | 2018-12-27 11:05 | DCINST_ITS ---
You will use the following diet at home:: Cardiac Discharge Activity: Return to Normal Activity Call your doctor if you observe: Fever of 101 or Higher, Shortness of breath, Dizziness, Fainting spells, Chest pain Allergies/Adverse Reactions: Allergies amoxicillin [From Augmentin] Allergy (Verified 12/26/18 08:15) Unknown ciprofloxacin Allergy (Verified 12/26/18 08:15) Unknown clavulanic acid [From Augmentin] Allergy (Verified 12/26/18 08:15) Unknown dextromethorphan Allergy (Verified 12/26/18 08:15) Hives levofloxacin [From Levaquin] Allergy (Verified 12/26/18 08:15) Anaphylaxis niacin Allergy (Verified 12/26/18 08:15) Pain in joints nitrofurantoin Allergy (Verified 12/26/18 08:15) Unknown prednisone Allergy (Verified 12/26/18 08:15) Hives propoxyphene Allergy (Verified 12/26/18 08:15) Unknown Sulfa (Sulfonamide Antibiotics) Allergy (Verified 12/26/18 08:15) Hives sulfamethoxazole [From Bactrim] Allergy (Verified 12/26/18 08:15) Hives tetracycline Allergy (Verified 12/26/18 08:15) Unknown trimethoprim [From Bactrim] Allergy (Verified 12/26/18 08:15) Hives clarithromycin [From Biaxin] Adverse Reaction (Mild, Verified 12/26/18 08:15) Rash codeine Adverse Reaction (Verified 12/26/18 08:15) Nausea ANALOGUES Allergy (Uncoded 12/26/18 08:15) Unknown dextromethorphan-guaifenesin Allergy (Uncoded 12/26/18 08:15) Hives macrocryst Allergy (Uncoded 12/26/18 08:15) Unknown Medications to take at Discharge Aspirin [Aspirin, Baby] 81 mg PO DAILY@0800 08/03/17 Hydrochlorothiazide [Hctz] 12.5 mg PO DAILY 08/03/17 Tiotropium [place] [Spiriva 18 MCG] 1 puff INHALATION DAILY 08/03/17 Albuterol Inhaler [Ventolin Hfa] 1 - 2 puff INHALATION Q4H PRN PRN #1 inhaler 08/06/17 budesonide-formoterol HFA 160 mcg-4.5 mcg/actuation aerosol inhaler 1 puff INHALATION BID g 05/26/18 polyethylene glycol 3350 17 gram oral powder packet 17 g PO QDAY 05/26/18 Prednisone See Taper PO DAILY #30 tablet 12/27/18 The following prescriptions were given: Prednisone See Taper PO DAILY #30 tablet Primary Care Physician: Dory Johnson DO [Primary Care Provider] - Please follow up with your Primary Care Physician in: 1 Week Test Results: Test results from this visit will be discussed in further detail at your follow- up appointment, if applicable. Please Follow Up With: Bowen Wellington DO When: 1-2 Weeks, May see CATEGORY DEVELOPMENT ANALYST Proposed Discharge Date: 12/27/18
--- NOTE | 2018-12-27 11:05 | PCM.DC.SUM ---
Discharge Date and Diagnosis Date of Admission: 12/26/18 Date of Discharge: 12/27/18 - Primary Discharge Diagnosis 1. COPD exacerbation with chronic hypoxic respiratory failure 2. Hypertension 3. Hyperlipidemia 4. Tobacco dependence 5. Hypothyroidism 6. GERD 7. PVD 8. History of cervical cancer - Secondary Discharge Diagnosis Chronic Problems (Last Reviewed 09/14/18 @ 16:04 by Martha Washington NP-C) History of foot surgery (Chronic) History of arthroscopy of left knee (Chronic) History of tubal ligation (Chronic) History of cholecystectomy (Chronic) Anxiety (Chronic) Smoker (Chronic) Allergic rhinitis (Chronic) COPD (chronic obstructive pulmonary disease) (Chronic) Low HDL (under 40) (Chronic) Hypoxemia (Chronic) Osteoporosis (Chronic) Hypothyroidism (Chronic) GERD (gastroesophageal reflux disease) (Chronic) Diverticulosis of colon (Chronic) PVD (peripheral vascular disease) (Chronic) Nephrolithiasis (Chronic) History of cervical cancer (Chronic) HTN (hypertension) (Chronic) Hospital Course and Treatment Imaging Results: Diagnostic Data Chest X-Ray 12/26/18 08:50 IMPRESSION: Hyperinflation. Increased interstitial markings in keeping with mild degree of CHF. Electronically Signed: Roberto Carlos Laureano, at 9:14 EST , Service support , Chest CTA 12/26/18 09:21 IMPRESSION: No evidence of pulmonary embolism. Emphysematous changes with atelectasis and/or scarring in the right lower lobe. Mild enlargement of the bilateral hilar lymph nodes. Electronically Signed: Roberto Carlos Laureano, at 10:33 EST , Service support , Operations: None Procedures: None Summary of Care Provided: The patient is a 78 year old F admitted 12/26/2018 due to shortness of breath. 1. COPD exacerbation with chronic hypoxic respiratory failure-chronically wears 2 L nasal cannula at baseline. Respiratory panel negative. Influenza negative. Chest CTA with no evidence of pulmonary embolism. Emphysematous changes with atelectasis and/or scarring in the right lower lobe. Continue supplement oxygen to maintain O2 at or above 90%. Patient is stable on baseline 2 L nasal cannula. Transition IV Solu-Medrol to prednisone taper at discharge. Continue home inhaler regimen and as needed albuterol aerosol. Follows with Dr. Wellington, pulmonary medicine. Follow-up with pulmonary medicine in 1-2 weeks. Follow-up with primary care physician in 1 week. 2. Hypertension-stable, continue home HCTZ regimen. 3. Hyperlipidemia-not on statin. 4. Tobacco dependence-encouraged smoking cessation. 5. Hypothyroidism-continue Synthroid regimen. 6. GERD-not on regimen. 7. PVD-continue aspirin, not on statin. 8. History of cervical cancer General: Alert, Oriented x3, Cooperative HEENT: Atraumatic, PERRLA, EOMI, Normocephalic Oral: Moist Mucosa Neck: Supple, No JVD, Negative Carotid Bruits Lungs: Diminished, Wheezes- improved from prior Cardiovascular: Regular rate, Regular Rhythm, Normal S1, Normal S2, No murmurs Abdomen: Bowel Sounds Present, Soft, Non Tender, Non-Distended Extremities: No clubbing, No cyanosis, No edema, Capillary Refill Less than 3 Seconds Skin: No rashes, No breakdown Musculoskeletal: No Tenderness to Palpation of Joints or Extremities Neurological: Cranial nerves II-XII grossly intact, Neuro grossly intact Psych/Mental Status: Normal Affect, Appropriate Patient seen and examined prior to discharge. Physical assessment as noted above. Patient is stable for discharge with follow up recommendations as noted above. This patient was seen by CARMEN Bernabe under the supervision of Dr. Nur. - Physical Exam Vital Signs Temp Pulse Resp BP Pulse Ox 98.1 F 101 H 18 136/65 H 94 12/27/18 09:00 12/27/18 09:05 12/27/18 09:00 12/27/18 09:00 12/27/18 09:05 Oxygen Flow Rate (L/min) 2 Oxygen Delivery Method Nasal Cannula Weight: 124 lb Body Mass Index (BMI) 20.6 Intake and Output for Last 24 Hours 12/25/18 12/26/18 12/27/18 23:59 23:59 23:59 Intake Total 200 / 200 400 / 400 Balance 200 / 200 400 / 400 Microbiology Past 72 Hours 12/26/18 12:56 Respiratory Panel (PCR) - Final Mucosa - Nasopharyngeal 12/26/18 07:45 Influenza Types A,B Direct FA (GU[place]UPE) - Final Mucosa - Nose Discharge Diet: Low fat/ Low Cholesterol Discharge Activity: Return to Normal Activity Call your doctor if you observe: Fever of 101 or Higher, Shortness of breath, Dizziness, Fainting spells, Chest pain Home Medications: Medications to take at Discharge Aspirin [Aspirin, Baby] 81 mg PO DAILY@0800 08/03/17 Hydrochlorothiazide [Hctz] 12.5 mg PO DAILY 08/03/17 Tiotropium [place] [Spiriva 18 MCG] 1 puff INHALATION DAILY 08/03/17 Albuterol Inhaler [Ventolin Hfa] 1 - 2 puff INHALATION Q4H PRN PRN #1 inhaler 08/06/17 budesonide-formoterol HFA 160 mcg-4.5 mcg/actuation aerosol inhaler 1 puff INHALATION BID g 05/26/18 polyethylene glycol 3350 17 gram oral powder packet 17 g PO QDAY 05/26/18 Prednisone See Taper PO DAILY #30 tablet 12/27/18 Following Prescrptions Were Given to Patient: Prednisone See Taper PO DAILY #30 tablet Primary Care Physician: Dory Johnson DO [Primary Care Provider] - Please follow up with your Primary Care Physician in: 1 Week Please Follow Up With: Bowen Wellington DO When: 1-2 Weeks, May see MOISTURE METER READER Disposition: Home Minutes spent on discharge:: 35 Patient Condition:: Stable Medical Necessity - Tobacco Use Smoking Status: Current every day smoker Meaningful Use Info Meaningful Use Diagnoses (Choose all that apply): None applicable
--- NOTE | 2018-12-27 11:10 | DS.PCM_ITS ---
Discharge Date and Diagnosis Date of Admission: 12/26/18 Date of Discharge: 12/27/18 - Primary Discharge Diagnosis 1. COPD exacerbation with chronic hypoxic respiratory failure 2. Hypertension 3. Hyperlipidemia 4. Tobacco dependence 5. Hypothyroidism 6. GERD 7. PVD 8. History of cervical cancer - Secondary Discharge Diagnosis Chronic Problems (Last Reviewed 09/14/18 @ 16:04 by Martha Washington NP-C) History of foot surgery (Chronic) History of arthroscopy of left knee (Chronic) History of tubal ligation (Chronic) History of cholecystectomy (Chronic) Anxiety (Chronic) Smoker (Chronic) Allergic rhinitis (Chronic) COPD (chronic obstructive pulmonary disease) (Chronic) Low HDL (under 40) (Chronic) Hypoxemia (Chronic) Osteoporosis (Chronic) Hypothyroidism (Chronic) GERD (gastroesophageal reflux disease) (Chronic) Diverticulosis of colon (Chronic) PVD (peripheral vascular disease) (Chronic) Nephrolithiasis (Chronic) History of cervical cancer (Chronic) HTN (hypertension) (Chronic) Hospital Course and Treatment Imaging Results: Diagnostic Data Chest X-Ray 12/26/18 08:50 IMPRESSION: Hyperinflation. Increased interstitial markings in keeping with mild degree of CHF. Electronically Signed: Roberto Carlos Laureano, at 9:14 EST , Service support , Chest CTA 12/26/18 09:21 IMPRESSION: No evidence of pulmonary embolism. Emphysematous changes with atelectasis and/or scarring in the right lower lobe. Mild enlargement of the bilateral hilar lymph nodes. Electronically Signed: Roberto Carlos Laureano, at 10:33 EST , Service support , Operations: None Procedures: None Summary of Care Provided: The patient is a 78 year old F admitted 12/26/2018 due to shortness of breath. 1. COPD exacerbation with chronic hypoxic respiratory failure-chronically wears 2 L nasal cannula at baseline. Respiratory panel negative. Influenza negative. Chest CTA with no evidence of pulmonary embolism. Emphysematous changes with atelectasis and/or scarring in the right lower lobe. Continue supplement oxygen to maintain O2 at or above 90%. Patient is stable on baseline 2 L nasal cannula. Transition IV Solu-Medrol to prednisone taper at discharge. Continue home inhaler regimen and as needed albuterol aerosol. Follows with Dr. Wellington, pulmonary medicine. Follow-up with pulmonary medicine in 1-2 weeks. Follow-up with primary care physician in 1 week. 2. Hypertension-stable, continue home HCTZ regimen. 3. Hyperlipidemia-not on statin. 4. Tobacco dependence-encouraged smoking cessation. 5. Hypothyroidism-continue Synthroid regimen. 6. GERD-not on regimen. 7. PVD-continue aspirin, not on statin. 8. History of cervical cancer General: Alert, Oriented x3, Cooperative HEENT: Atraumatic, PERRLA, EOMI, Normocephalic Oral: Moist Mucosa Neck: Supple, No JVD, Negative Carotid Bruits Lungs: Diminished, Wheezes- improved from prior Cardiovascular: Regular rate, Regular Rhythm, Normal S1, Normal S2, No murmurs Abdomen: Bowel Sounds Present, Soft, Non Tender, Non-Distended Extremities: No clubbing, No cyanosis, No edema, Capillary Refill Less than 3 Seconds Skin: No rashes, No breakdown Musculoskeletal: No Tenderness to Palpation of Joints or Extremities Neurological: Cranial nerves II-XII grossly intact, Neuro grossly intact Psych/Mental Status: Normal Affect, Appropriate Patient seen and examined prior to discharge. Physical assessment as noted above. Patient is stable for discharge with follow up recommendations as noted above. This patient was seen by CARMEN Bernabe under the supervision of Dr. Nur. - Physical Exam Vital Signs Temp Pulse Resp BP Pulse Ox 98.1 F 101 H 18 136/65 H 94 12/27/18 09:00 12/27/18 09:05 12/27/18 09:00 12/27/18 09:00 12/27/18 09:05 Oxygen Flow Rate (L/min) 2 Oxygen Delivery Method Nasal Cannula Weight: 124 lb Body Mass Index (BMI) 20.6 Intake and Output for Last 24 Hours 12/25/18 12/26/18 12/27/18 23:59 23:59 23:59 Intake Total 200 / 200 400 / 400 Balance 200 / 200 400 / 400 Microbiology Past 72 Hours 12/26/18 12:56 Respiratory Panel (PCR) - Final Mucosa - Nasopharyngeal 12/26/18 07:45 Influenza Types A,B Direct FA ([place]) - Final Mucosa - Nose Discharge Diet: Low fat/ Low Cholesterol Discharge Activity: Return to Normal Activity Call your doctor if you observe: Fever of 101 or Higher, Shortness of breath, Dizziness, Fainting spells, Chest pain Home Medications: Medications to take at Discharge Aspirin [Aspirin, Baby] 81 mg PO DAILY@0800 08/03/17 Hydrochlorothiazide [Hctz] 12.5 mg PO DAILY 08/03/17 Tiotropium [place] [Spiriva 18 MCG] 1 puff INHALATION DAILY 08/03/17 Albuterol Inhaler [Ventolin Hfa] 1 - 2 puff INHALATION Q4H PRN PRN #1 inhaler 08/06/17 budesonide-formoterol HFA 160 mcg-4.5 mcg/actuation aerosol inhaler 1 puff INHALATION BID g 05/26/18 polyethylene glycol 3350 17 gram oral powder packet 17 g PO QDAY 05/26/18 Prednisone See Taper PO DAILY #30 tablet 12/27/18 Following Prescrptions Were Given to Patient: Prednisone See Taper PO DAILY #30 tablet Primary Care Physician: Dory Johnson DO [Primary Care Provider] - Please follow up with your Primary Care Physician in: 1 Week Please Follow Up With: Bowen Wellington DO When: 1-2 Weeks, May see SKIN CARE SPECIALIST Disposition: Home Minutes spent on discharge:: 35 Patient Condition:: Stable Medical Necessity - Tobacco Use Smoking Status: Current every day smoker Meaningful Use Info Meaningful Use Diagnoses (Choose all that apply): None applicable
== END 2018-12-27 16:50 | disposition home or self-care (01) ==
LOC: ED 08:03 → MS2 11:16
PROVIDERS: Admitting Provider Internal Medicine; Emergency Provider Emergency Medicine; Family Provider Internal Medicine; PCP Internal Medicine; Visit Provider Internal Medicine
DX: J44.1 Chronic obstructive pulmonary disease with (acute) exacerbation (principal); J96.11 Chronic respiratory failure with hypoxia; I10 Essential (primary) hypertension; E78.5 Hyperlipidemia, unspecified; I73.9 Peripheral vascular disease, unspecified; K21.9 Gastro-esophageal reflux disease without esophagitis; F17.200 Nicotine dependence, unspecified, uncomplicated; Z79.899 Other long term (current) drug therapy; Z79.82 Long term (current) use of aspirin; Z99.81 Dependence on supplemental oxygen; Z85.41 Personal history of malignant neoplasm of cervix uteri; Z92.21 Personal history of antineoplastic chemotherapy; Z92.3 Personal history of irradiation; Z91.19 Patient's noncompliance with other medical treatment and regimen; R06.02 Shortness of breath
CPT/HCPCS: 71046; 71275; 80048; 80076; 83605; 84484; 85025; 85610; 85730; 87040; 87633; 87804; 93005; 94640; 96372; 96374; 96376; 99218; 99285; Q9967; A4216; G0378

== ENCOUNTER 2018-12-30 13:13 | Emergency (ER) | payer MEDICARE, SELFPAY ==
[2018-12-26 11:55] VITALS: BMI 20.6
[2018-12-30 13:14] VITALS: BP 143/73; PULSE 120; RESP 20; TEMP 36.6; O2SAT 93; BMI 20.6
--- NOTE | 2018-12-30 14:36 | ED.VIS.GEN ---
History of Present Illness Chief Complaint: Allergic Reaction Detail of Chief Complaint: Swelling ankles, tingling and swelling lips Informant: Patient, Friend Onset: Today Context: - - Unknown Timing: - - Unknown Quality: Swelling of ankles and swelling of lips Location: Ankles and lips Current Severity: Mild Maximum Severity: Mild Worsened by: Unknown Relieved by: Unknown Associated Symptoms: Anxiety Narrative: Elderly woman who is oxygen dependent COPD patient presents because she is concerned similar reaction to prednisone. She complains of swelling of her feet ankles and swelling of her lips were tingling. Patient states she is anxious and that she will not be able to swallow or breathe. She reports she has a history of anxiety. She continues to smoke. She was discharged in the hospital earlier this week. She has no other symptoms or complaints. - Past Medical History (1) Allergic rhinitis Status: Chronic (2) Anxiety Status: Chronic (3) COPD (chronic obstructive pulmonary disease) Status: Chronic (4) GERD (gastroesophageal reflux disease) Status: Chronic (5) HTN (hypertension) Status: Chronic (6) History of cervical cancer Status: Chronic Past Medical History - Allergies and Home Meds Allergies/Adverse Reactions: Allergies prednisone Allergy (Severe, Verified 12/30/18 13:21) Lips swelling amoxicillin [From Augmentin] Allergy (Verified 12/30/18 13:21) Unknown ciprofloxacin Allergy (Verified 12/30/18 13:21) Unknown clavulanic acid [From Augmentin] Allergy (Verified 12/30/18 13:21) Unknown dextromethorphan Allergy (Verified 12/30/18 13:21) Hives levofloxacin [From Levaquin] Allergy (Verified 12/30/18 13:21) Anaphylaxis niacin Allergy (Verified 12/30/18 13:21) Pain in joints nitrofurantoin Allergy (Verified 12/30/18 13:21) Unknown propoxyphene Allergy (Verified 12/30/18 13:21) Unknown Sulfa (Sulfonamide Antibiotics) Allergy (Verified 12/30/18 13:21) Hives sulfamethoxazole [From Bactrim] Allergy (Verified 12/30/18 13:21) Hives tetracycline Allergy (Verified 12/30/18 13:21) Unknown trimethoprim [From Bactrim] Allergy (Verified 12/30/18 13:21) Hives clarithromycin [From Biaxin] Adverse Reaction (Mild, Verified 12/30/18 13:21) Rash codeine Adverse Reaction (Verified 12/30/18 13:21) Nausea ANALOGUES Allergy (Uncoded 12/30/18 13:21) Unknown dextromethorphan-guaifenesin Allergy (Uncoded 12/30/18 13:21) Hives macrocryst Allergy (Uncoded 12/30/18 13:21) Unknown Primary Care Physician: Dory Johnson DO [Primary Care Provider] - Prior records reviewed: Yes Surgical History: noncontributory, - - cervical cancer radiation and surgery , cholecystectemy, appendectomy. Lives: Alone Smoking Status: Current every day smoker Alcohol: None - Family History Maternal Family History: Reports: Heart Disease Paternal Family History: Reports: COPD Review of Systems General: Denies: Chills, Fever, Subjective, Sweats, Weight loss Eyes: Denies: Visual changes - bilaterally, Blurred Vision - bilaterally, Diplopia ENT: Denies: Bilateral ear pain, Rhinorrhea, Sore throat Cardiovascular: Denies: Chest pain, Palpitations Respiratory: Denies: Dyspnea, Cough, Dyspnea on exertion, Orthopnea, Paroxysmal nocturnal dyspnea Gastrointestinal: Denies: Abdominal pain, Nausea, Vomiting, Diarrhea, Melena, Hematochezia Genitourinary: Denies: Dysuria, Hematuria, Frequency Musculoskeletal: Reports: Swelling - Both ankles. Denies: Back pain, Extremity Pain Skin: Denies: Rash, Wounds Neurological: Denies: Headache, Weakness, Numbness Psych: Reports: Anxiety Hematologic: Denies: Easy bruising, Easy bleeding Allergy: Reports: - - Swelling of lips. Denies: Uticaria, Swelling of the mouth, Swelling of the tongue Physical Exam Vital Signs/Narrative: Vital Signs Temp Pulse Resp BP Pulse Ox 12/30/18 13:14 97.8 F 120 H 20 H 143/73 H 93 Inital Vital Signs reviewed: Yes General: Well developed, Cachectic Head: Normocephalic, Atraumatic Eyes: Perrl, EOMI. Negative for: Pale conjunctiva, Scleral icterus ENT: Moist mucous membranes, No rhinorrhea Neck: Supple, No lymphadenopathy, No JVD Cardiovascular: Regular rate, Regular rhythm Respiratory: No distress Abdomen: Soft, Nontender - Pharmacy of unprotected I viral bacterial by okay okay okay recent Holter she CODE STATUSOkay troponin is abnormal for her sounds good thank you for welcome Extremities: Nontender, Edema - 1+ pedal edema (patient unaware if the swelling is less in the morning compared to night. She does admit she has been less active and sitting more. 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 There is no difference in the size of her lips. She does have a positive spastic sign noted. It is my opinion that patient's tingling is secondary to hyperventilation secondary to anxiety which she admits to. With regards to the swelling in my opinion this is dependent edema and treatment is elevate and increase activity. Patient was informed that she should be more concerned about smoking wearing oxygen then not being able to breathe or swallow because of mild swelling of her feet. No testing was obtained or in my professional opinion indicated. ED Disposition - Plan for ED Patient: Disposition: Home or Assisted Living Diagnosis: Pedal edema, Acute hyperventilation syndrome Instructions: ED Lymphedema, ED Stress React Referrals: Dory Johnson DO [Primary Care Provider] - As Needed Additional Instructions: Patient was told to continue taking prednisone. She was informed to elevate her feet and increase activity. She was informed she should stop smoking.
[2018-12-30 15:20] VITALS: PULSE 110; RESP 17
== END 2018-12-30 15:21 | disposition home or self-care (01) ==
LOC: ED 14:50
PROVIDERS: Emergency Provider Emergency Medicine; Family Provider Internal Medicine; PCP Internal Medicine
DX: R60.9 Edema, unspecified (principal); F45.8 Other somatoform disorders; F17.200 Nicotine dependence, unspecified, uncomplicated; Z85.41 Personal history of malignant neoplasm of cervix uteri; I10 Essential (primary) hypertension; K21.9 Gastro-esophageal reflux disease without esophagitis; J44.9 Chronic obstructive pulmonary disease, unspecified; F41.9 Anxiety disorder, unspecified; J30.9 Allergic rhinitis, unspecified; Z99.81 Dependence on supplemental oxygen
CPT/HCPCS: 99282

== ENCOUNTER 2019-01-02 07:26 | Observation (INO) | payer MEDICARE, SELFPAY ==
[2019-01-02] VITALS (15 sets, daily range): BP systolic 113–137; BP diastolic 50–81; PULSE 83–98; RESP 18–29; TEMP 36–36.9; O2SAT 88–98; BMI 22.6; BMI 20.7
--- NOTE | 2019-01-02 07:45 | EKG12_ITS ---
Test Reason : SOB Blood Pressure : / mmHG Vent. Rate : 088 BPM Atrial Rate : 088 BPM P-R Int : 132 ms QRS Dur : 088 ms QT Int : 352 ms P-R-T Axes : 076 061 041 degrees QTc Int : 425 ms Sinus rhythm with occasional Premature ventricular complexes Right atrial enlargement Borderline ECG Confirmed by TANJA MENDES, SHU ([id number]), book or script editor YARA CASTANEDA ([id number]) on 01/05/2019 10:32:40 AM Referred By: GIGI Confirmed By:SHU AGRAWAL MD
[2019-01-02] MEDS: Ipratropium/Albuterol Sulfate 3 ML AMPUL.NEB INHALATION ×2 (07:51→19:06)
[2019-01-02] MEDS: Albuterol 2.5 MG/3 ML VIAL.NEB. INHALATION (07:51)
--- NOTE | 2019-01-02 07:53 | ED.DCSUM_ITS ---
- ER Visit Summary Date of Service: 01/02/19 Chief Complaint: [Shortness of breath] History of Present Illness: The patient is a 78 F [presents the emergency department shortness of breath started about a week ago. Patient was seen in the emergency department 1 week ago and admitted overnight. Patient was diagnosed with exacerbation of COPD. Patient underwent a CTA of the chest at that time there is no evidence of PE. Patient was sent home with prednisone. Patient on discharge initially felt better however she started having increasing dyspnea and exertional dyspnea. Patient continues to cough and at times has a productive cough with some yellow sputum. Patient denies any fevers at home. Patient has had some intermittent lower extremity swelling but states that they are better now. Patient is normally on 2 L nasal cannula O2 at home. EMS noted that on their arrival her O2 sat was 86% on her oxygen. Patient denies any chest pain.] Physical Examination: [HEENT-PERRLA, EOMI. Cranial nerves II through XII grossly intact. TMs clear. Mucous membranes moist. No adenopathy. Cardiovascular-regular rate and rhythm without murmur or ectopy Lungs-diminished breath sounds bilaterally with expiratory wheezes noted. Mild tachypnea. No accessory muscles or retractions. No conversational dyspnea. Abdomen-normoactive bowel sounds, soft, nontender, no rebound or rigidity, no peritoneal signs. Extremities-intact ?4, normal range of motion, normal pulses, atraumatic] Test Results: [EKG obtained showed sinus rhythm with a ventricular rate of 88 bpm. CBC with differential showed a white count of 13.7, hemoglobin 14.9, hematocrit 47, placed 266. Chemistries show sodium 136, potassium 3.2, chloride 95, CO2 36, BUN 21, creatinine 0.82, glucose 130. Troponin was less than 0.015. Chest x-ray showed some vascular congestion otherwise nothing acute.] Emergency Department Course and Treatment: Patient was given Solu-Medrol 125 mg IV. Patient given DuoNeb aerosol and albuterol aerosol. Patient continues to wheeze and feel dyspneic.. [] Treatment Plan: [Admit] Disposition: [Admit] Impression: [COPD exacerbation] This note was generated with [employer] dictation software. It may contain incorrect words, spelling, and punctuation that were not noted in review of the chart prior to signing ED Disposition - Plan for ED Patient: Referrals: Dory Johnson DO [Primary Care Provider] -
[2019-01-02] MEDS: 0.9% Normal Saline 1,000 ML 150 ML IV (08:02)
[2019-01-02] MEDS: MethylPREDNISolone 125 MG/2 ML Vial IV (08:02)
[2019-01-02 08:11] LABS: Absolute Lymphocyte Count 3.04 X10^3/ul (0.83-4.51); Basophil# 0.02 X10^3/uL; Basophil% 0.1 % (0-1); Eosinophil# 0.12 X10^3/uL; Eosinophils% 0.9 % (0-5); Hematocrit 47.3 % (37-47); Hemoglobin 14.9 g/dl (12.0-15.0); Lymphocyte # 3.04 X10^3/ul (4.0); Lymphocyte % 22.2 % (19-41); Mean Corp Hgb Conc 31.5 g/gl (32-36); Mean Corpuscular Hgb 27.8 pg (27.0-32.0); Mean Corpuscular Volume 88.2 fL (81-99); Mean Platelet Vol. 10.6 fl (6.2-12.0); Monocyte# 1.43 X10^3/uL; Monocyte% 10.4 % (0-10); Neutrophil # 9.01 X10^3/uL (2.7-7.7); Neutrophil % 65.8 % (47-70); Platelet Count 266 K/mm3 (150-450); RBC Distribution Width CV 13.2 % (11.6-14.6); RBC Distribution Width SD 42.9 fl (35.1-43.9); Red Blood Count 5.36 M/mm3 (4.2-5.4); White Blood Count 13.7 K/mm3 (4.4-11.0)
[2019-01-02 08:12] LABS: POSITIVE COUNT NO; POSITIVE DIFFERENTIAL NO; POSITIVE MORPHOLOGY NO
--- NOTE | 2019-01-02 08:15 | RAD_ITS ---
STUDY: X-RAY CHEST REASON FOR EXAM: Female, 78 years old. Dyspnea. TECHNIQUE: AP and lateral views of the chest. COMPARISON: Comparison is made with prior examination dated December 26, 2018. FINDINGS: EKG electrodes are seen. Mild increased markings at the left lung base suggestive of mild scarring. Minimal degree of vascular congestion. There is no demonstrated pleural abnormality. Normal size heart. Normal mediastinum and ignacio. Normal visualized pulmonary arteries. There is atherosclerotic calcification of the aortic arch with tortuosity. There are diffuse degenerative changes of the visualized thoracic spine. Normal visualized ribs, clavicles, and shoulders. There is no demonstrated abnormality of the visualized soft tissue structures of the upper abdomen. RAD/Chest PA and Lateral IMPRESSION: Minimal degree of vascular congestion. Findings suggestive scarring at the left lung base. Electronically Signed: Roberto Carlos Laureano, at 8:53 EDT , Service support ,
[2019-01-02 08:32] LABS: Anion Gap 5 (5-15); BUN 21 mg/dL (7-18); BUN/Creat Ratio 25.6 RATIO (10-20); Calcium,Total 9.1 mg/dL (8.5-10.1); Chloride 95 mmol/L (98-107); Creatinine, Serum 0.82 mg/dL (0.55-1.02); EST Glomerular Filtration Rate 71 mL/min (>60); Est Glom Filt Rate - Afr Amer 86 mL/min (>60); Estimated Creatinine Clearance 50.06 ml/min; Glucose 130 mg/dL (74-106); Potassium 3.2 mmol/L (3.5-5.1); Sodium Level 136 mmol/L (136-145)
--- NOTE | 2019-01-02 10:29 | PCM.HP.STD ---
History of Present Illness Date of Admission: 01/02/19 Chief Complaint: shortness of breath The patient is a 78 year old F with a past medical history as listed which includes COPD. She was admitted with a complaint of shortness of breath the past 2 days. Of note, patient was admitted a few days ago for COPD exacerbation and discharged one day later. One day prior to this presentation, she noted that she was feeling short of breath and was wheezing and symptoms progressively worsened. She had an associated cough which was productive of scanty clear sputum. She denied any fever or chills but admitted to mild orthopnea and swelling in her lower extremities as well. She therefore decided to come into the ED. She called the squad and was noted to be hypoxic with saturation at around 86% at home. Of note she is on 2 L of oxygen at home. On arrival in the ED she was saturating 93% on 3 L of oxygen. CBC was significant for white cell count of 13.7, but she had been on oral steroids. CMP showed potassium of 3.3 and bicarb of 36 but was otherwise unremarkable with BNP of 12.5 and troponin negative. Chest x-ray showed minimal degree of vascular congestion and findings suggestive of scarring of the left lung base. She has been admitted to be managed for COPD exacerbation. [] Past Medical History Past Medical History (Chronic Problems): Chronic Problems (Last Reviewed 09/14/18 @ 16:04 by Martha Washington NP-Hardy) History of foot surgery (Chronic) History of arthroscopy of left knee (Chronic) History of tubal ligation (Chronic) History of cholecystectomy (Chronic) Anxiety (Chronic) Smoker (Chronic) Allergic rhinitis (Chronic) COPD (chronic obstructive pulmonary disease) (Chronic) Low HDL (under 40) (Chronic) Hypoxemia (Chronic) Osteoporosis (Chronic) Hypothyroidism (Chronic) GERD (gastroesophageal reflux disease) (Chronic) Diverticulosis of colon (Chronic) PVD (peripheral vascular disease) (Chronic) Nephrolithiasis (Chronic) History of cervical cancer (Chronic) HTN (hypertension) (Chronic) Medical History: Medical History (Last Reviewed 09/14/18 @ 16:04 by Martha Washington NP-C) Anxiety (Chronic) F41.9 Smoker (Chronic) F17.200 Allergic rhinitis (Chronic) J30.9 COPD (chronic obstructive pulmonary disease) (Chronic) J44.9 Low HDL (under 40) (Chronic) E78.6 Hypoxemia (Chronic) R09.02 Osteoporosis (Chronic) M81.0 Hypothyroidism (Chronic) E03.9 GERD (gastroesophageal reflux disease) (Chronic) K21.9 Diverticulosis of colon (Chronic) K57.30 PVD (peripheral vascular disease) (Chronic) I73.9 Nephrolithiasis (Chronic) N20.0 Allergies prednisone Allergy (Severe, Verified 01/02/19 09:38) Lips swelling amoxicillin [From Augmentin] Allergy (Verified 01/02/19 09:38) Unknown ciprofloxacin Allergy (Verified 01/02/19 09:38) Unknown clavulanic acid [From Augmentin] Allergy (Verified 01/02/19 09:38) Unknown dextromethorphan Allergy (Verified 01/02/19 09:38) Hives levofloxacin [From Levaquin] Allergy (Verified 01/02/19 09:38) Anaphylaxis niacin Allergy (Verified 01/02/19 09:38) Pain in joints nitrofurantoin Allergy (Verified 01/02/19 09:38) Unknown propoxyphene Allergy (Verified 01/02/19 09:38) Unknown Sulfa (Sulfonamide Antibiotics) Allergy (Verified 01/02/19 09:38) Hives sulfamethoxazole [From Bactrim] Allergy (Verified 01/02/19 09:38) Hives tetracycline Allergy (Verified 01/02/19 09:38) Unknown trimethoprim [From Bactrim] Allergy (Verified 01/02/19 09:38) Hives clarithromycin [From Biaxin] Adverse Reaction (Mild, Verified 01/02/19 09:38) Rash codeine Adverse Reaction (Verified 01/02/19 09:38) Nausea ANALOGUES Allergy (Uncoded 01/02/19 09:38) Unknown dextromethorphan-guaifenesin Allergy (Uncoded 01/02/19 09:38) Hives macrocryst Allergy (Uncoded 01/02/19 09:38) Unknown Home Medications: Ambulatory Orders Medication Instructions Recorded Aspirin [Aspirin, Baby] 81 mg PO DAILY@0800 08/03/17 Hydrochlorothiazide [Hctz] 12.5 mg PO DAILY 08/03/17 Tiotropium [place] [Spiriva 18 MCG] 1 puff INHALATION DAILY 08/03/17 Albuterol Inhaler [Ventolin Hfa] 1 - 2 puff INHALATION Q4H PRN PRN 08/06/17 #1 inhaler budesonide-formoterol HFA 160 1 puff INHALATION BID g 05/26/18 mcg-4.5 mcg/actuation aerosol inhaler polyethylene glycol 3350 17 gram 17 g PO QDAY 05/26/18 oral powder packet Prednisone See Taper PO DAILY #30 tablet 12/27/18 Surgical History: Surgical History (Last Reviewed 09/14/18 @ 16:04 by LORNA BenitezC) History of foot surgery (Chronic) Z98.890 History of arthroscopy of left knee (Chronic) Z98.890 History of tubal ligation (Chronic) Z98.51 History of cholecystectomy (Chronic) Z90.49 Surgical History: noncontributory, - - cervical cancer radiation and surgery , cholecystectemy, appendectomy. 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 Denies: Chills, Fever, Weight Change Eyes: Denies: Blurred vision HEENT: Denies: Head Aches, Sinus Congestion, Sinus Drainage Cardiovascular: Reports: Edema, Paroxysmal Noc. Dyspnea. Denies: Chest Pain, Palpitations Respiratory: Reports: Cough, Shortness of Breath, Shortness of breath at rest, Shortness of breath upon exertion, Sputum production, Wheezing. Denies: Pleuritic Pain Gastrointestinal: Denies: Abdominal Pain, Nausea, Vomiting Genitourinary: Denies: Dysuria Musculoskeletal: Denies: Joint Pain, Joint Tenderness Skin: Denies: Rash, Wounds Neurological: Denies: Numbness, Tingling, Focal weakness Psychiatric: Denies: Anxiety, Depression, Homicidal Ideations, Suicidal Ideations Hematologic/ Lymphatic: Denies: Easy Bruising, Easy Bleeding VTE Information - Inpt Only VTE Present on Admission: No VTE Pharm Prophylaxis ordered?: Yes - Physical Exam General: Alert, Oriented x3, Cooperative, No apparent distress HEENT: Atraumatic, PERRLA, EOMI, Normocephalic Oral: Dry Mucosa Neck: Supple, No JVD, Negative Carotid Bruits Lungs: - - has coarse crackles in lung bases. Lungs sound very tight, with wheezing in all lung whiteside. Cardiovascular: Regular rate, Regular Rhythm, Normal S1, Normal S2, No murmurs Abdomen: Bowel Sounds Present, Soft, Non Tender, Non-Distended, No Hepato-splenomegaly Extremities: No clubbing, No cyanosis, No edema, Capillary Refill Less than 3 Seconds Skin: No rashes, No breakdown Musculoskeletal: No Tenderness to Palpation of Joints or Extremities Lymphatic: No Cervical, Supraclavicular, or Inguinal Adenopathy Neurological: Cranial nerves II-XII grossly intact, Neuro grossly intact, Motor Exam 5/5 strength throughout Psych/Mental Status: Normal Affect, Appropriate, Alert and oriented to time, place, person, mood and affect Vital Signs Temp Pulse Resp BP Pulse Ox 98.1 F 98 25 H 113/81 H 91 01/02/19 09:26 01/02/19 09:37 01/02/19 09:37 01/02/19 09:37 01/02/19 09:37 Oxygen Flow Rate (L/min) 2 Oxygen Delivery Method Nasal Cannula Weight: 136 lb 3.931 oz Body Mass Index (BMI) 22.6 Laboratory Tests Past 24 Hrs 01/02/19 01/02/19 07:50 07:50 WBC 13.7 H RBC 5.36 Hgb 14.9 Hct 47.3 H MCV 88.2 MCH 27.8 MCHC 31.5 L RDW 13.2 RDW Differential 42.9 Plt Count 266 MPV 10.6 Immature Gran % (Auto) 0.600 Neut % (Auto) 65.8 Lymph % (Auto) 22.2 [place] % (Auto) 10.4 H Eos % (Auto) 0.9 Baso % (Auto) 0.1 Absolute Neuts (auto) 9.0 H Absolute Lymphs (auto) 3.04 Total Counted Not Reportable Sodium 136 Potassium 3.2 L Chloride 95 L Carbon Dioxide 36.0 H Anion Gap 5 BUN 21 H Creatinine 0.82 Estim Creat Clear Calc 50.06 Est GFR (MDRD) Af Amer 86 Est GFR (MDRD) Non-Af 71 BUN/Creatinine Ratio 25.6 H Glucose 130 H Calcium 9.1 Troponin I < 0.015 Diagnostic Data Chest X-Ray 01/02/19 08:15 IMPRESSION: Minimal degree of vascular congestion. Findings suggestive scarring at the left lung base. Electronically Signed: Roberto Carlos Laureano, at 8:53 EDT , Service support , Assessment/Plan All Active Problems (Last Reviewed 09/14/18 @ 16:04 by CARMEN Benitez) SBO (small bowel obstruction) (Resolved) 78-year-old female admitted with complaint of shortness of breath. 1. [id number] hypoxic respiratory insufficiency due to COPD exacerbation. Was recently admitted and managed for similar condition and discharged just a few days ago. Was found to be saturating at 86% on 2 L of oxygen at home. Chest x-ray shows mild vascular congestion but no infiltrate. Admit to [facility] with telemetry BNP was only 12.5, therefore effectively ruling out CHF. Breathing treatments with duo nebs. IV Solu-Medrol 40 mg every 8 Since this is a second admission in a few days, will start on p.o. levofloxacin Sputum culture and respiratory panel. Titrate oxygen to maintain saturation above 92%. 2. COPD exacerbation: As under 1 3. Nicotine dependence: Continues to smoke though she says she cannot quantify how much she smokes. Counseled to quit. Nicotine patch 21 mg daily. 4. Hypokalemia: Potassium was 3.2 on admission. We will replace and monitor. 5. Hypertension: Controlled. On hydrochlorothiazide DVT prophylaxis: Lovenox Code Visit OBSV E&M: [id number] Initial observation care L3
--- NOTE | 2019-01-02 11:18 | CASEMGMT ---
RN CM Assessment Introduced role of RN CM to patient. Patient is alert, oriented and able to participate in RN CM Assessment. Care providers, pharmacy, and demographics verified. Presentation: Admitted for COPD Exacerbation, O2 with EMS 86% on Home O2. Patient recently admitted Obs 12/26-12/27/18 for COPD Exacerbation. C/o SOB after DC and worse. CM s/w patient regarding COPD and states that she did fill and has been taking the DC Rx Prednisone. Denies any issues obtaining or taking her COPD medications. On Inhalers at home Symbicort and Spiriva. On Home O2 2L Continuous. 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 Patient is a current every day smoker per H&P. ER- 12/30/18 For Allergic Reaction. PCP: Dr Dory Johnson Specialists: Pulm- Dr Wellington Preferred Pharmacy: [facility] Insurance: [facility] Prescription Benefit: Yes LNOK: Granddaughter Kaley Nava Living Arrangements: Retired, lives alone in a [place] [facility] apartment, utilizes elevator. Normally ambulates on her own independently, however d/t this illness has been utilizing her walker. Independent with ADL's. Transportation: dtr Kaley, Dtr in law, or Cab. DME: Walker, Nebulizer, Shower Chair, Home O2 2L Continuous- [employer]. Prefers [employer]. HHC: None in the past, Prefers [facility]. SNF: None in the past, Patient states refuses to go to SNF. DC PLAN: Home with no anticipated needs identified. GITA Merino
[2019-01-02 12:03] LABS: BNP,B-Type NATRIURETIC PEPTIDE 12.5 pg/mL (0-100)
[2019-01-02] MEDS: 0.9% NaCl Peripheral Flush Adult/Peds IV ×2 (14:50→21:17)
[2019-01-02] MEDS: guaiFENesin 1,200 MG Tablet 1200 MG PO (21:13)
[2019-01-03] VITALS (12 sets, daily range): BP systolic 114–132; BP diastolic 42–83; PULSE 81–109; RESP 16–26; TEMP 36.6–37.1; O2SAT 93–95
[2019-01-03] MEDS: 0.9% NaCl Peripheral Flush Adult/Peds IV ×3 (05:48→21:38)
[2019-01-03 06:22] LABS: Absolute Lymphocyte Count 1.81 X10^3/ul (0.83-4.51); Absolute Neutrophil Count 17.6 X10^3/uL (2.0-7.7); Hematocrit 42.9 % (37-47); Hemoglobin 13.4 g/dl (12.0-15.0); Lymphocyte # 1.81 X10^3/ul (4.0); Lymphocyte % 8.7 % (19-41); Mean Corp Hgb Conc 31.2 g/gl (32-36); Mean Corpuscular Hgb 27.6 pg (27.0-32.0); Mean Corpuscular Volume 88.5 fL (81-99); Monocyte# 1.27 X10^3/uL; Monocyte% 6.1 % (0-10); Neutrophil # 17.58 X10^3/uL (2.7-7.7); Neutrophil % 84.6 % (47-70); Platelet Count 259 K/mm3 (150-450); RBC Distribution Width CV 13.4 % (11.6-14.6); Red Blood Count 4.85 M/mm3 (4.2-5.4); White Blood Count 20.8 K/mm3 (4.4-11.0)
[2019-01-03 06:41] LABS: Anion Gap 7 (5-15); BUN 18 mg/dL (7-18); BUN/Creat Ratio 29.4 RATIO (10-20); Calcium,Total 8.8 mg/dL (8.5-10.1); Chloride 101 mmol/L (98-107); Creatinine, Serum 0.61 mg/dL (0.55-1.02); EST Glomerular Filtration Rate 100 mL/min (>60); Est Glom Filt Rate - Afr Amer 121 mL/min (>60); Glucose 126 mg/dL (74-106); Potassium 4.7 mmol/L (3.5-5.1); Sodium Level 139 mmol/L (136-145)
[2019-01-03 06:46] LABS: POSITIVE COUNT NO; POSITIVE DIFFERENTIAL NO; POSITIVE MORPHOLOGY NO
[2019-01-03] MEDS: Aspirin 81 MG TAB.CHEW PO (08:51)
[2019-01-03] MEDS: Enoxaparin 40 MG/0.4 ML Syringe SC (08:51)
[2019-01-03] MEDS: hydroCHLOROthiazide 25 MG Tablet 12.5 MG PO (08:51)
[2019-01-03] MEDS: guaiFENesin 1,200 MG Tablet 1200 MG PO ×2 (08:51→21:38)
--- NOTE | 2019-01-03 10:10 | PCM.PN.HOSP ---
Subjective: Patient seen and examined. She was admitted yesterday with a complaint of shortness of breath and is being managed for COPD exacerbation. Patient feels much better today and shortness of breath has improved. She still has a cough which is productive of clear sputum. She denies any chest pain or palpitation, dizziness, abdominal pain, diarrhea vomiting. Review of systems otherwise negative. Labs and vitals reviewed. Vitals/I&O's: Vital Signs Temp Pulse Resp BP Pulse Ox 98.2 F 92 18 114/42 L 95 01/03/19 08:39 01/03/19 08:39 01/03/19 08:39 01/03/19 08:39 01/03/19 08:39 Oxygen Flow Rate (L/min) 2 Oxygen Delivery Method Nasal Cannula Weight: 124 lb 9.6 oz Body Mass Index (BMI) 20.7 Intake and Output for Last 24 Hours 01/01/19 01/02/19 01/03/19 23:59 23:59 23:59 Intake Total 480 / 480 700 / 700 Output Total 400 / 400 Balance 80 / 80 700 / 700 General: Alert, Oriented x3, Cooperative, No apparent distress HEENT: Atraumatic, PERRLA, EOMI, Normocephalic Oral: Dry Mucosa Neck: Supple, No JVD, Negative Carotid Bruits Lungs: - - lungs have very mild wheezing in all lung whiteside. Sound much better than on admission. Cardiovascular: Regular rate, Regular Rhythm, Normal S1, Normal S2, No murmurs Abdomen: Bowel Sounds Present, Soft, Non Tender, Non-Distended, No Hepato-splenomegaly Extremities: No clubbing, No cyanosis, No edema, Capillary Refill Less than 3 Seconds Skin: No rashes, No breakdown Musculoskeletal: No Tenderness to Palpation of Joints or Extremities Lymphatic: No Cervical, Supraclavicular, or Inguinal Adenopathy Neurological: Cranial nerves II-XII grossly intact, Neuro grossly intact, Motor Exam 5/5 strength throughout Psych/Mental Status: Normal Affect, Appropriate, Alert and oriented to time, place, person, mood and affect Laboratory Results 01/02/19 07:50: B-Natriuretic Peptide 12.5 01/03/19 05:37: WBC 20.8 H, RBC 4.85, Hgb 13.4, Hct 42.9, MCV 88.5, MCH 27.6, MCHC 31.2 L, RDW 13.4, RDW Differential 43.0, Plt Count 259, MPV 11.0, Immature Gran % (Auto) 0.600, Neut % (Auto) 84.6 H, Lymph % (Auto) 8.7 L, [place] % (Auto) 6.1, Eos % (Auto) 0.0, Baso % (Auto) 0.0, Absolute Neuts (auto) 17.6 H, Absolute Lymphs (auto) 1.81, Total Counted Not Reportable 01/03/19 05:37: Sodium 139, Potassium 4.7, Chloride 101, Carbon Dioxide 31.0, Anion Gap 7, BUN 18, Creatinine 0.61, Estim Creat Clear Calc 40.70, Est GFR (MDRD) Af Amer 121, Est GFR (MDRD) Non-Af 100, BUN/Creatinine Ratio 29.4 H, Glucose 126 H, Calcium 8.8 Current Medications Albuterol/Ipratropium (Duoneb) 3 ml INHALATION Q4H.RT [facility] Last Admin: 01/03/19 07:27 Dose: Not Given Aspirin (Aspirin, Baby) 81 mg PO DAILY@0800 [facility] Last Admin: 01/03/19 08:51 Dose: 81 mg Enoxaparin Sodium (Lovenox) 40 mg SC DAILY@1000 [facility] Last Admin: 01/03/19 08:51 Dose: 40 mg Guaifenesin (Mucinex) 1,200 mg PO BID [facility] Last Admin: 01/03/19 08:51 Dose: 1,200 mg Hydrochlorothiazide (Hctz) 12.5 mg PO DAILY [facility] Last Admin: 01/03/19 08:51 Dose: 12.5 mg Magnesium Hydroxide (Milk Of Magnesia) 30 ml PO DAILY PRN PRN PRN Reason: Constipation Methylprednisolone (Solu-Medrol) 40 mg IV Q8 [facility] Last Admin: 01/03/19 05:45 Dose: 40 mg Polyethylene Glycol (Miralax) 17 gm PO DAILY [facility] Last Admin: 01/03/19 08:52 Dose: Not Given Sodium Chloride () 5 - 15 ml IV UD PRN PRN Reason: SALINE FLUSH Last Admin: 01/03/19 05:48 Dose: 10 ml Medical Necessity - Tobacco Use Smoking Status: Current every day smoker Tobacco Use: Cigarettes Assessment/Plan All Active Problems (Last Reviewed 09/14/18 @ 16:04 by CARMEN Benitez) SBO (small bowel obstruction) (Resolved) 78-year-old female admitted with complaint of shortness of breath. 1. [id number] hypoxic respiratory insufficiency due to COPD exacerbation. feels much better today saturating at 95% on her baseline 2L of oxygen. continue breathing treatments and steroids. sputum Culture respiratory panel pending Titrate oxygen to maintain saturation above 92%. 2. COPD exacerbation: As under 1 3. Nicotine dependence: Continues to smoke though she says she cannot quantify how much she smokes. Counseled to quit. Nicotine patch 21 mg daily. 4. Hypokalemia: Resolved. Potassium is up to 4.7 from 3.2 on admission. DVT prophylaxis: Lovenox Code Visit OBSV E&M: 91138 Subsequent observation care L2
--- NOTE | 2019-01-03 10:13 | PN_ITS ---
Subjective: Patient seen and examined. She was admitted yesterday with a complaint of shortness of breath and is being managed for COPD exacerbation. Patient feels much better today and shortness of breath has improved. She still has a cough which is productive of clear sputum. She denies any chest pain or palpitation, dizziness, abdominal pain, diarrhea vomiting. Review of systems otherwise negative. Labs and vitals reviewed. Vitals/I&O's: Vital Signs Temp Pulse Resp BP Pulse Ox 98.2 F 92 18 114/42 L 95 01/03/19 08:39 01/03/19 08:39 01/03/19 08:39 01/03/19 08:39 01/03/19 08:39 Oxygen Flow Rate (L/min) 2 Oxygen Delivery Method Nasal Cannula Weight: 124 lb 9.6 oz Body Mass Index (BMI) 20.7 Intake and Output for Last 24 Hours 01/01/19 01/02/19 01/03/19 23:59 23:59 23:59 Intake Total 480 / 480 700 / 700 Output Total 400 / 400 Balance 80 / 80 700 / 700 General: Alert, Oriented x3, Cooperative, No apparent distress HEENT: Atraumatic, PERRLA, EOMI, Normocephalic Oral: Dry Mucosa Neck: Supple, No JVD, Negative Carotid Bruits Lungs: - - lungs have very mild wheezing in all lung whiteside. Sound much better than on admission. Cardiovascular: Regular rate, Regular Rhythm, Normal S1, Normal S2, No murmurs Abdomen: Bowel Sounds Present, Soft, Non Tender, Non-Distended, No Hepato-splen omegaly Extremities: No clubbing, No cyanosis, No edema, Capillary Refill Less than 3 Seconds Skin: No rashes, No breakdown Musculoskeletal: No Tenderness to Palpation of Joints or Extremities Lymphatic: No Cervical, Supraclavicular, or Inguinal Adenopathy Neurological: Cranial nerves II-XII grossly intact, Neuro grossly intact, Motor Exam 5/5 strength throughout Psych/Mental Status: Normal Affect, Appropriate, Alert and oriented to time, place, person, mood and affect Laboratory Results 01/02/19 07:50: B-Natriuretic Peptide 12.5 01/03/19 05:37: WBC 20.8 H, RBC 4.85, Hgb 13.4, Hct 42.9, MCV 88.5, MCH 27.6, MCHC 31.2 L, RDW 13.4, RDW Differential 43.0, Plt Count 259, MPV 11.0, Immature Gran % (Auto) 0.600, Neut % (Auto) 84.6 H, Lymph % (Auto) 8.7 L, [place] % (Auto) 6.1, Eos % (Auto) 0.0, Baso % (Auto) 0.0, Absolute Neuts (auto) 17.6 H, Absolute Lymphs (auto) 1.81, Total Counted Not Reportable 01/03/19 05:37: Sodium 139, Potassium 4.7, Chloride 101, Carbon Dioxide 31.0, Anion Gap 7, BUN 18, Creatinine 0.61, Estim Creat Clear Calc 40.70, Est GFR (MDRD) Af Amer 121, Est GFR (MDRD) Non-Af 100, BUN/Creatinine Ratio 29.4 H, Glucose 126 H, Calcium 8.8 Current Medications Albuterol/Ipratropium (Duoneb) 3 ml INHALATION Q4H.RT [facility] Last Admin: 01/03/19 07:27 Dose: Not Given Aspirin (Aspirin, Baby) 81 mg PO DAILY@0800 [facility] Last Admin: 01/03/19 08:51 Dose: 81 mg Enoxaparin Sodium (Lovenox) 40 mg SC DAILY@1000 [facility] Last Admin: 01/03/19 08:51 Dose: 40 mg Guaifenesin (Mucinex) 1,200 mg PO BID [facility] Last Admin: 01/03/19 08:51 Dose: 1,200 mg Hydrochlorothiazide (Hctz) 12.5 mg PO DAILY [facility] Last Admin: 01/03/19 08:51 Dose: 12.5 mg Magnesium Hydroxide (Milk Of Magnesia) 30 ml PO DAILY PRN PRN PRN Reason: Constipation Methylprednisolone (Solu-Medrol) 40 mg IV Q8 [facility] Last Admin: 01/03/19 05:45 Dose: 40 mg Polyethylene Glycol (Miralax) 17 gm PO DAILY [facility] Last Admin: 01/03/19 08:52 Dose: Not Given Sodium Chloride () 5 - 15 ml IV UD PRN PRN Reason: SALINE FLUSH Last Admin: 01/03/19 05:48 Dose: 10 ml Medical Necessity - Tobacco Use Smoking Status: Current every day smoker Tobacco Use: Cigarettes Assessment/Plan All Active Problems (Last Reviewed 09/14/18 @ 16:04 by Martha Washington, YVROSE-C) SBO (small bowel obstruction) (Resolved) 78-year-old female admitted with complaint of shortness of breath. 1. Jcrbi-bo-koqhhxo hypoxic respiratory insufficiency due to COPD exacerbation. * feels much better today * saturating at 95% on her baseline 2L of oxygen. * continue breathing treatments and steroids. * sputum Culture respiratory panel pending * Titrate oxygen to maintain saturation above 92%. * 2. COPD exacerbation: As under 1 3. Nicotine dependence: Continues to smoke though she says she cannot quantify how much she smokes. Counseled to quit. Nicotine patch 21 mg daily. 4. Hypokalemia: Resolved. Potassium is up to 4.7 from 3.2 on admission. DVT prophylaxis: Lovenox Code Visit OBSV E&M: 78226 Subsequent observation care L2
[2019-01-03] MEDS: Ipratropium/Albuterol Sulfate 3 ML AMPUL.NEB INHALATION ×3 (11:06→18:58)
--- NOTE | 2019-01-03 15:18 | CASEMGMT ---
RN CM Note: LOZANO FORM Lozano form printed and explained to pt re: her stay for COPD/OBS assignment. Pt has [employer] advantage. Questions answered re: billing to insurance and pt was advised that hospital PFS # will be included in billing if pt has questions at that time. No further questions. Pt signed, copy given to her and form placed in chart. Fay HERZOG RN ACM
[2019-01-04] VITALS (8 sets, daily range): BP systolic 126–141; BP diastolic 58–70; PULSE 80–100; RESP 16–18; TEMP 36.4–37.7; O2SAT 91–95
[2019-01-04] MEDS: 0.9% NaCl Peripheral Flush Adult/Peds IV (05:25)
[2019-01-04 06:24] LABS: Absolute Neutrophil Count 23.5 X10^3/uL (2.0-7.7); Basophil# 0.01 X10^3/uL; Hematocrit 43.1 % (37-47); Hemoglobin 13.4 g/dl (12.0-15.0); Lymphocyte % 6.3 % (19-41); Mean Corp Hgb Conc 31.1 g/gl (32-36); Mean Corpuscular Hgb 27.7 pg (27.0-32.0); Mean Platelet Vol. 10.7 fl (6.2-12.0); Monocyte# 1.62 X10^3/uL; Neutrophil # 23.49 X10^3/uL (2.7-7.7); Neutrophil % 86.9 % (47-70); Platelet Count 307 K/mm3 (150-450); RBC Distribution Width CV 13.7 % (11.6-14.6); Red Blood Count 4.84 M/mm3 (4.2-5.4)
[2019-01-04 06:25] LABS: Differential Indicated SCAN CRITERIA MET; POSITIVE COUNT NO; POSITIVE DIFFERENTIAL YES; POSITIVE MORPHOLOGY NO
[2019-01-04] MEDS: Ipratropium/Albuterol Sulfate 3 ML AMPUL.NEB INHALATION (06:37)
[2019-01-04 06:55] LABS: Anion Gap 8 (5-15); BUN 21 mg/dL (7-18); BUN/Creat Ratio 28.9 RATIO (10-20); Calcium,Total 9.1 mg/dL (8.5-10.1); Chloride 100 mmol/L (98-107); Creatinine, Serum 0.73 mg/dL (0.55-1.02); EST Glomerular Filtration Rate 82 mL/min (>60); Est Glom Filt Rate - Afr Amer 99 mL/min (>60); Glucose 131 mg/dL (74-106); Potassium 4.8 mmol/L (3.5-5.1); Sodium Level 138 mmol/L (136-145)
[2019-01-04] MEDS: Aspirin 81 MG TAB.CHEW PO (08:16)
[2019-01-04] MEDS: Enoxaparin 40 MG/0.4 ML Syringe SC (10:08)
[2019-01-04] MEDS: hydroCHLOROthiazide 25 MG Tablet 12.5 MG PO (10:08)
[2019-01-04] MEDS: guaiFENesin 1,200 MG Tablet 1200 MG PO (10:09)
--- NOTE | 2019-01-04 10:30 | DCINST_ITS ---
- Discharge Diagnoses Current Active Problems: COPD exacerbation You will use the following diet at home:: Cardiac Your food should be the consistency of: Regular Your liquids should be the consistency of: Regular/Thin Discharge Activity: Return to Normal Activity Weight Bearing Status: Weight bearing as tolerated Call your doctor if you observe: Shortness of breath Instructions: COPD: Using Inhalers, Treatment for COPD, What is COPD? Allergies/Adverse Reactions: Allergies prednisone Allergy (Severe, Verified 01/02/19 09:38) Lips swelling amoxicillin [From Augmentin] Allergy (Verified 01/02/19 09:38) Unknown ciprofloxacin Allergy (Verified 01/02/19:38) Unknown clavulanic acid [From Augmentin] Allergy (Verified 01/02/19 09:38) Unknown dextromethorphan Allergy (Verified 01/02/19:38) Hives levofloxacin [From Levaquin] Allergy (Verified 01/02/19 09:38) Anaphylaxis niacin Allergy (Verified 01/02/19 09:38) Pain in joints nitrofurantoin Allergy (Verified 01/02/19 09:38) Unknown propoxyphene Allergy (Verified 01/02/19 09:38) Unknown Sulfa (Sulfonamide Antibiotics) Allergy (Verified 01/02/19 09:38) Hives sulfamethoxazole [From Bactrim] Allergy (Verified 01/02/19 09:38) Hives tetracycline Allergy (Verified 01/02/19 09:38) Unknown trimethoprim [From Bactrim] Allergy (Verified 01/02/19 09:38) Hives clarithromycin [From Biaxin] Adverse Reaction (Mild, Verified 01/02/19 09:38) Rash codeine Adverse Reaction (Verified 01/02/19 09:38) Nausea ANALOGUES Allergy (Uncoded 01/02/19 09:38) Unknown dextromethorphan-guaifenesin Allergy (Uncoded 01/02/19 09:38) Hives macrocryst Allergy (Uncoded 01/02/19 09:38) Unknown Medications to take at Discharge Aspirin [Aspirin, Baby] 81 mg PO DAILY@0800 08/03/17 Hydrochlorothiazide [Hctz] 12.5 mg PO DAILY 08/03/17 Tiotropium [place] [Spiriva 18 MCG] 1 puff INHALATION DAILY 08/03/17 Albuterol Inhaler [Ventolin Hfa] 1 - 2 puff INHALATION Q4H PRN PRN #1 inhaler 08/06/17 budesonide-formoterol HFA 160 mcg-4.5 mcg/actuation aerosol inhaler 1 puff INHALATION BID g 05/26/18 polyethylene glycol 3350 17 gram oral powder packet 17 g PO QDAY 05/26/18 MethylPREDNISolone DosePak [Medrol DosePak] 4 mg PO UD #1 box 01/04/19 The following prescriptions were given: MethylPREDNISolone DosePak [Medrol DosePak] 4 mg PO UD #1 box Primary Care Physician: Dory Johnson DO [Primary Care Provider] - Please follow up with your Primary Care Physician in: one week Test Results: Test results from this visit will be discussed in further detail at your follow- up appointment, if applicable. Proposed Discharge Date: 01/04/19
--- NOTE | 2019-01-04 11:37 | CASEMGMT ---
As per admitting RN, pt has LW/POA, they are not on file, but pt will bring them in to the hospital. BEBE Lau, BILLIARD PARLOR MANAGER
--- NOTE | 2019-01-04 16:01 | PCM.DC.SUM ---
Discharge Date and Diagnosis Date of Admission: 01/02/19 Date of Discharge: 01/04/19 - Primary Discharge Diagnosis Acute COPD exacerbation. - Secondary Discharge Diagnosis Chronic Problems (Last Reviewed 09/14/18 @ 16:04 by CARMEN Benitez) History of foot surgery (Chronic) History of arthroscopy of left knee (Chronic) History of tubal ligation (Chronic) History of cholecystectomy (Chronic) Anxiety (Chronic) Smoker (Chronic) Allergic rhinitis (Chronic) COPD (chronic obstructive pulmonary disease) (Chronic) Low HDL (under 40) (Chronic) Hypoxemia (Chronic) Osteoporosis (Chronic) Hypothyroidism (Chronic) GERD (gastroesophageal reflux disease) (Chronic) Diverticulosis of colon (Chronic) PVD (peripheral vascular disease) (Chronic) Nephrolithiasis (Chronic) History of cervical cancer (Chronic) HTN (hypertension) (Chronic) Hospital Course and Treatment Imaging Results: Diagnostic Data Chest X-Ray 01/02/19 08:15 IMPRESSION: Minimal degree of vascular congestion. Findings suggestive scarring at the left lung base. Electronically Signed: Roberto Carlos Laureano, at 8:53 EDT , Service support , Operations: None Procedures: None Summary of Care Provided: The patient is a 78 year old F with a past medical history as listed which includes COPD and chronic hypoxic respiratory failure on 2 L of oxygen at home as well as chronic nicotine dependence.. She was admitted with a complaint of shortness of breath the past 2 days. Of note, patient was admitted a few days ago for COPD exacerbation and discharged one day later. One day prior to this presentation, she noted that she was feeling short of breath and was wheezing and symptoms progressively worsened. She had an associated cough which was productive of scanty clear sputum. She denied any fever or chills but admitted to mild orthopnea and swelling in her lower extremities as well. She therefore decided to come into the ED. She called the squad and was noted to be hypoxic with saturation at around 86% at home. Of note she is on 2 L of oxygen at home. On arrival in the ED she was saturating 93% on 3 L of oxygen. CBC was significant for white cell count of 13.7, but she had been on oral steroids. CMP showed potassium of 3.3 and bicarb of 36 but was otherwise unremarkable with BNP of 12.5 and troponin negative. Chest x-ray showed minimal degree of vascular congestion and findings suggestive of scarring of the left lung base. She was admitted to be managed for COPD exacerbation. Put on breathing treatments and IV steroids as well as cough medication. Respiratory panel was negative. Patient shortness of breath improved significantly she felt much better. She was discharged home on 12/07/2018 with a prescription for Medrol Dosepak. She is to follow-up with her primary care doctor in 1 week. Of note, patient was counseled strongly about the need to quit smoking. Patient seen and examined prior to discharge. She had no complaints and felt well. Review of systems otherwise negative. Labs and vitals reviewed. Home medication reviewed on consult. o/e: Vital Signs Height 5 ft 5 in Weight: 124 lb 9.6 oz Weight in Pounds 124.6 lbs Pulse Ox 91 Temperature 99.8 F Pulse Rate 91 Respiratory Rate 18 Blood Pressure 141/70 Blood Pressure Position Sitting General: Alert, Oriented x3, Cooperative, No apparent distress HEENT: Atraumatic, PERRLA, EOMI, Normocephalic Oral: Dry Mucosa Neck: Supple, No JVD, Negative Carotid Bruits Lungs: - - lungs are clear to auscultation. on 2L of oxygen, which is her baseline. l Cardiovascular: Regular rate, Regular Rhythm, Normal S1, Normal S2, No murmurs Abdomen: Bowel Sounds Present, Soft, Non Tender, Non-Distended, No Hepato-splenomegaly Extremities: No clubbing, No cyanosis, No edema, Capillary Refill Less than 3 Seconds Skin: No rashes, No breakdown Musculoskeletal: No Tenderness to Palpation of Joints or Extremities Lymphatic: No Cervical, Supraclavicular, or Inguinal Adenopathy Neurological: Cranial nerves II-XII grossly intact, Neuro grossly intact, Motor Exam 5/5 strength throughout Psych/Mental Status: Normal Affect, Appropriate, Alert and oriented to time, place, person, mood and affect Plan as above. - Physical Exam Vital Signs Temp Pulse Resp BP Pulse Ox 99.8 F H 91 18 141/70 H 91 01/04/19 12:28 01/04/19 12:28 01/04/19 12:28 01/04/19 12:28 01/04/19 12:28 Oxygen Flow Rate (L/min) 2 Oxygen Delivery Method Nasal Cannula Weight: 124 lb 9.6 oz Body Mass Index (BMI) 20.7 Intake and Output for Last 24 Hours 01/02/19 01/03/19 01/04/19 23:59 23:59 23:59 Intake Total 480 / 480 1660 / 1660 900 / 900 Output Total 400 / 400 350 / 350 1450 / 1450 Balance 80 / 80 1310 / 1310 -550 / -550 Microbiology Past 72 Hours 01/02/19 15:50 Respiratory Panel (PCR) - Final Mucosa - Nasopharyngeal Laboratory Tests Past 24 Hrs 01/04/19 01/04/19 05:40 05:40 WBC 27.0 H RBC 4.84 Hgb 13.4 Hct 43.1 MCV 89.0 MCH 27.7 MCHC 31.1 L RDW 13.7 RDW Differential 44.0 H Plt Count 307 MPV 10.7 Immature Gran % (Auto) 0.800 Neut % (Auto) 86.9 H Lymph % (Auto) 6.3 L [place] % (Auto) 6.0 Eos % (Auto) 0.0 Baso % (Auto) 0.0 Absolute Neuts (auto) 23.5 H Absolute Lymphs (auto) 1.70 Total Counted Not Reportable Sodium 138 Potassium 4.8 Chloride 100 Carbon Dioxide 30.0 Anion Gap 8 BUN 21 H Creatinine 0.73 Estim Creat Clear Calc 40.70 Est GFR (MDRD) Af Amer 99 Est GFR (MDRD) Non-Af 82 BUN/Creatinine Ratio 28.9 H Glucose 131 H Calcium 9.1 Discharge Diet: Low fat/ Low Cholesterol Discharge Activity: Return to Normal Activity Weight Bearing Status: Weight bearing as tolerated Call your doctor if you observe: Shortness of breath Home Medications: Medications to take at Discharge Aspirin [Aspirin, Baby] 81 mg PO DAILY@0800 08/03/17 Hydrochlorothiazide [Hctz] 12.5 mg PO DAILY 08/03/17 Tiotropium [place] [Spiriva 18 MCG] 1 puff INHALATION DAILY 08/03/17 Albuterol Inhaler [Ventolin Hfa] 1 - 2 puff INHALATION Q4H PRN PRN #1 inhaler 08/06/17 budesonide-formoterol HFA 160 mcg-4.5 mcg/actuation aerosol inhaler 1 puff INHALATION BID g 05/26/18 polyethylene glycol 3350 17 gram oral powder packet 17 g PO QDAY 05/26/18 MethylPREDNISolone DosePak [Medrol DosePak] 4 mg PO UD #1 box 01/04/19 Following Prescrptions Were Given to Patient: MethylPREDNISolone DosePak [Medrol DosePak] 4 mg PO UD #1 box Primary Care Physician: Dory Johnson DO [Primary Care Provider] - Please follow up with your Primary Care Physician in: one week Patient Instructions: What is COPD?, COPD: Using Inhalers, Treatment for COPD Disposition: Home Minutes spent on discharge:: 40 Patient Condition:: Stable Medical Necessity - Tobacco Use Smoking Status: Current every day smoker Tobacco Use: Cigarettes Meaningful Use Info Meaningful Use Diagnoses (Choose all that apply): None applicable Code Visit Inpatient E&M: 21672 Disch Hosp
[2019-01-05 14:03] LABS: Pathologist Review Reviewed
== END 2019-01-04 12:38 | disposition home or self-care (01) ==
LOC: ED 07:51 → MS2 10:45
PROVIDERS: Admitting Provider Student in an Organized Health Care Education/Training Program; Emergency Provider Emergency Medicine; Family Provider Internal Medicine; PCP Internal Medicine; Visit Provider Student in an Organized Health Care Education/Training Program
DX: J44.1 Chronic obstructive pulmonary disease with (acute) exacerbation (principal); K21.9 Gastro-esophageal reflux disease without esophagitis; I10 Essential (primary) hypertension; I73.9 Peripheral vascular disease, unspecified; E03.9 Hypothyroidism, unspecified; M81.0 Age-related osteoporosis without current pathological fracture; F17.210 Nicotine dependence, cigarettes, uncomplicated; Z85.41 Personal history of malignant neoplasm of cervix uteri; Z79.899 Other long term (current) drug therapy; Z79.82 Long term (current) use of aspirin; Z99.81 Dependence on supplemental oxygen; E87.6 Hypokalemia; J96.21 Acute and chronic respiratory failure with hypoxia
CPT/HCPCS: 36415; 71046; 80048; 83880; 84484; 85025; 87633; 93005; 94640; 96361; 96372; 96374; 96376; 97162; 97165; 97530; 99218; 99285; 99406; J7030; A4216; G0378

== ENCOUNTER → 2019-02-23 10:48 | Outpatient (CLI) | payer MEDICARE, SELFPAY ==
[2018-09-14 13:37] VITALS: BMI 20.6
[2019-01-27 17:27] VITALS: BMI 20.7
--- NOTE | 2019-02-23 15:07 | PFTCOMP_ITS ---
COMPLETE PULMONARY FUNCTION TEST INTERPRETATION Brief HPI: Patient is an 79 year old female, currently under the care of Dr. Wellington, who presents to [facility] for complete pulmonary function tests secondary to diagnosis of COPD. Respiratory therapist reports good effort and reproducible results. Interpretation: Forced expiration spirometry shows a severe large airways obstructive ventilatory defect with an FEV1 of 43% predicted. There is no significant bronchodilator response by strict ATS criteria. Spirograms are of good quality and plateau slowly, indicating slowly emptying areas of the lungs. The respiratory flow volume loop shows decreased expiratory flow rates at all lung volumes consistent with airway obstruction. Lung volumes by body plethysmography show a normal total lung capacity at 5.28 L, 107% predicted. FRC and RV are elevated out of proportion. Lung volume measurements are consistent with air-trapping. Diffusion capacity by carbon monoxide is decreased at 41% predicted. The airway resistance is elevated. Compared to previous pulmonary function tests from 05/11/2018, there is been a significant improvement in FEV1 and DLCO by 13% and 15% respectively. Impression: Irreversible severe large airways obstructive ventilatory defect with a symmetric reduction diffusing capacity. There has been some improvement compared to previous testing.
== END ==
PROVIDERS: Family Provider Internal Medicine; PCP Internal Medicine; Referring Provider Nurse Practitioner Acute Care; Visit Provider Nurse Practitioner Acute Care
DX: J44.9 Chronic obstructive pulmonary disease, unspecified (principal)
CPT/HCPCS: 94060; 94726; 94729

== ENCOUNTER → 2019-05-17 08:29 | Outpatient (CLI) | payer MEDICARE, SELFPAY ==
[2019-03-08 10:21] VITALS: BMI 23.3
[2019-05-17 09:21] VITALS: PULSE 100; PULSE 102; PULSE 106; PULSE 93; PULSE 97; PULSE 98; O2SAT 87; O2SAT 88; O2SAT 90; O2SAT 91; O2SAT 92; O2SAT 95
--- NOTE | 2019-05-17 09:24 | CPS ---
Patient desaturated to 88% at the 6 min yandel. This RT increased pulse dose O2 from 3L to 4L and walked patient for 1.5 more minutes. Patient's SpO2 came up to 91% on the 4L pulse dose. Wing SCHEDULE HANGER
--- NOTE | 2019-05-17 13:16 | PCM.PSN.6M ---
PSN 6 Minute Walk Test - 6 Minute Walk Test 6 Minute Walk Test: 6 Minute Walk Test PSN:6-Minute Walk Test Start: 05/17/19 09:21 Freq: Status: Active Protocol: [id number].[id number] Document 05/17/19 09:21 TAWNYA (Rec: 05/17/19 09:26 [email or web address] [id number]) 6 Minute Walk Test Date Performed 05/17/19 Time Performed 09:00 Height 5 ft 5 in Weight: 61.235 kg Weight in Pounds 135.[address]: Bowen Wellington Assistive device used: Walker Pre-test Oxygen Delivery Method Room Air Pulse Ox (%) 90 Pulse Rate (60-100 beats/min) 93 Dyspnea Jenny Scale (0-10) 0 Exertion Jenny Scale (6-20) 6 1st minute Oxygen Delivery Method Room Air Pulse Ox (%) 88 Pulse Rate (60-100 beats/min) 98 Dyspnea Jenny Scale (0-10) 2 Exertion Jenny Scale (6-20) 11 2nd minute Oxygen Flow Rate (L/min) (L/min) 2 Oxygen Delivery Method Nasal Cannula Pulse Ox (%) 87 Pulse Rate (60-100 beats/min) 93 3rd minute Oxygen Flow Rate (L/min) (L/min) 3 Oxygen Delivery Method Nasal Cannula Pulse Ox (%) 92 Pulse Rate (60-100 beats/min) 100 4th minute Oxygen Flow Rate (L/min) (L/min) 3 Oxygen Delivery Method Nasal Cannula Pulse Ox (%) 91 Pulse Rate (60-100 beats/min) 102 H 5th minute Oxygen Flow Rate (L/min) (L/min) 3 Oxygen Delivery Method Nasal Cannula Pulse Ox (%) 92 Pulse Rate (60-100 beats/min) 97 6th minute Oxygen Flow Rate (L/min) (L/min) 3 Oxygen Delivery Method Nasal Cannula Pulse Ox (%) 88 Pulse Rate (60-100 beats/min) 106 H Dyspnea Jenny Scale (0-10) 2 Exertion Jenny Scale (6-20) 11 Post-test Oxygen Flow Rate (L/min) (L/min) 3 Oxygen Delivery Method Nasal Cannula Pulse Ox (%) 95 Pulse Rate (60-100 beats/min) 93 Full Laps Walked 17 Partial Lap, Number of Tiles Walked 0 Total Distance Walked (ft) 1003 05/17/19 09:24 Cardiopulmonary Services by Onelia Cook Patient desaturated to 88% at the 6 min yandel. This RT increased pulse dose O2 from 3L to 4L and walked patient for 1.5 more minutes. Patient's SpO2 came up to 91% on the 4L pulse dose. Wing PLACEMENT ASSISTANT Initialized on 05/17/19 09:24 - END OF NOTE - Interpretation Interpretation: The patient was noted to be 90% on room air at rest. The patient did desaturate in the first minute of ambulation and was placed on 2 L nasal cannula oxygen at pulse dose. Patient required 4 L pulse dose to maintain appropriate saturations by the end of testing. In total, the patient traveled to 1003 feet over the course of 7 minutes on room air with the assistance of a walker. These findings are consistent with a respiratory limitation exercise tolerance. - Recommendations Recommendations: The patient requires no supplemental oxygen at rest, but should be using 4 L pulse dose with any exertion.
== END ==
PROVIDERS: Family Provider Internal Medicine; PCP Internal Medicine; Referring Provider Internal Medicine Critical Care Medicine; Visit Provider Internal Medicine Critical Care Medicine
DX: J96.11 Chronic respiratory failure with hypoxia (principal)
CPT/HCPCS: 94618

== ENCOUNTER 2019-06-04 09:26 | Emergency (ER) | payer MEDICARE, SELFPAY ==
[2019-03-08 10:21] VITALS: BMI 23.3
[2019-06-04 09:28] VITALS: BP 142/78; PULSE 101; RESP 16; TEMP 36.6; O2SAT 93; BMI 22.4
--- NOTE | 2019-06-04 09:34 | CT_ITS ---
STUDY: CT BRAIN WITHOUT CONTRAST REASON FOR EXAM: Female, 79 years old. 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 Individualized dose optimization techniques were used for this CT. COMPARISON: No relevant priors. FINDINGS: Normal soft tissue structures. Normal calvarium. There is mild cerebral atrophy with widening of the extra-axial spaces and ventricular dilatation. There are areas of decreased attenuation within the white matter tracts of the supratentorial brain, consistent with microvascular disease changes. Normal basal ganglia and thalami. Normal brainstem. Normal cerebellum. There is no intracranial hemorrhage. There are no findings of an acute ischemic infarction. Normal visualized paranasal sinuses. CT/Brain/Head without Contrast IMPRESSION: 1. No acute intracranial hemorrhage or mass effect. 2. Central parenchymal volume loss. White matter changes that are nonspecific but most commonly associated with chronic small vessel ischemic disease. Electronically Signed: Brayan Boston MD (Brooks) at 10:49 EDT , Service support ,
--- NOTE | 2019-06-04 09:34 | EKG12_ITS ---
Test Reason : GENERAL ILLNESS Blood Pressure : / mmHG Vent. Rate : 085 BPM Atrial Rate : 085 BPM P-R Int : 150 ms QRS Dur : 096 ms QT Int : 374 ms P-R-T Axes : 055 030 061 degrees QTc Int : 445 ms Sinus rhythm with frequent Premature ventricular complexes Otherwise normal ECG Confirmed by ANDREA MENDES, GENESIS ([id number]), city editor KOBE HUNT ([id number]) on 06/12/2019 1:23:24 PM Referred By: CHAPIN Confirmed By:GUS MENDEZ MD
[2019-06-04 10:29] LABS: Absolute Lymphocyte Count 2.09 X10^3/uL (0.83-4.51); Absolute Neutrophil Count 5.5 X10^3/uL (2.0-7.7); Basophil# 0.07 X10^3/uL; Basophil% 0.8 % (0-1); Eosinophil# 0.21 X10^3/uL; Eosinophils% 2.3 % (0-5); Hematocrit 46.4 % (37-47); Hemoglobin 14.7 g/dL (12.0-15.0); Lymphocyte # 2.09 X10^3/ul (4.0); Lymphocyte % 23.2 % (19-41); Mean Corp Hgb Conc 31.7 g/dL (32-36); Mean Corpuscular Hgb 27.4 pg (27.0-32.0); Mean Corpuscular Volume 86.4 fL (81-99); Mean Platelet Vol. 10.9 fl (6.2-12.0); Monocyte# 1.12 X10^3/uL; Monocyte% 12.4 % (0-10); NRBC Flagged by Analyzer 0 % (0-5); Neutrophil % 61.1 % (47-70); Platelet Count 197 K/mm3 (150-450); RBC Distribution Width CV 13.2 % (11.6-14.6); Red Blood Count 5.37 M/mm3 (4.2-5.4)
--- NOTE | 2019-06-04 10:38 | RAD_ITS ---
STUDY: X-RAY CHEST REASON FOR EXAM: Female, 79 years old. Shortness of breath, COPD TECHNIQUE: PA and lateral views of the chest. COMPARISON: 01/02/2019 FINDINGS: There are interstitial fibrotic changes of the lungs. There is no demonstrated pleural abnormality. Normal size heart. Normal mediastinum and ignacio. Normal visualized pulmonary arteries. There is atherosclerotic calcification of the aortic arch with tortuosity. There is demineralization of the osseous structures. Normal visualized ribs, clavicles, and shoulders. There is no demonstrated abnormality of the visualized soft tissue structures of the upper abdomen. RAD/Chest 1 View (Portable) IMPRESSION: 1. Stable, nonacute x-ray examination of the chest. Electronically Signed: Brayan Boston MD (Brooks) at 11:08 EDT , Service support ,
[2019-06-04 10:48] LABS: Anion Gap 3 (5-15); BUN 16 mg/dL (7-18); BUN/Creat Ratio 20.3 RATIO (10-20); Calcium,Total 9.6 mg/dL (8.5-10.1); Chloride 104 mmol/L (98-107); Creatinine, Serum 0.79 mg/dL (0.55-1.02); EST Glomerular Filtration Rate 74 mL/min (>60); Est Glom Filt Rate - Afr Amer 90 mL/min (>60); Estimated Creatinine Clearance 40.38 ml/min; Glucose 109 mg/dL (74-106); Potassium 3.4 mmol/L (3.5-5.1); Sodium Level 139 mmol/L (136-145)
[2019-06-04 10:54] LABS: Carboxyhemoglobin Frac (CO) 7.4 % (0.0-1.5)
[2019-06-04] MEDS: 0.9% Normal Saline 1,000 ML 150 ML IV (11:07)
[2019-06-04 12:43] VITALS: BP 145/79; PULSE 84; RESP 18; O2SAT 97
--- NOTE | 2019-06-04 12:53 | ED.DCSUM_ITS ---
History of Present Illness Chief Complaint: General Illness Informant: Patient Onset: Today Current Severity: Mild Maximum Severity: Mild Narrative: Patient presents with concern for being overheated. She lives at a local apartment complex. She states the air conditioning has not been working for the past week and will probably not be fixed for another week at least. Patient states that she has a slight headache that started yesterday and has had some intermittent dizziness. She reports some tingling in her hands and feet. Paramedics did state that her apartment did feel very warm when they picked her up. Past Medical History - Allergies and Home Meds Allergies/Adverse Reactions: Allergies prednisone Allergy (Severe, Verified 06/04/19 09:33) Lips swelling amoxicillin [From Augmentin] Allergy (Verified 06/04/19 09:33) Unknown ciprofloxacin Allergy (Verified 06/04/19 09:33) Unknown clavulanic acid [From Augmentin] Allergy (Verified 06/04/19 09:33) Unknown dextromethorphan Allergy (Verified 06/04/19 09:33) Hives levofloxacin [From Levaquin] Allergy (Verified 06/04/19 09:33) Anaphylaxis niacin Allergy (Verified 06/04/19 09:33) Pain in joints nitrofurantoin Allergy (Verified 06/04/19 09:33) Unknown propoxyphene Allergy (Verified 06/04/19 09:33) Unknown Sulfa (Sulfonamide Antibiotics) Allergy (Verified 06/04/19 09:33) Hives sulfamethoxazole [From Bactrim] Allergy (Verified 06/04/19 09:33) Hives tetracycline Allergy (Verified 06/04/19 09:33) Unknown trimethoprim [From Bactrim] Allergy (Verified 06/04/19 09:33) Hives clarithromycin [From Biaxin] Adverse Reaction (Mild, Verified 06/04/19 09:33) Rash codeine Adverse Reaction (Verified 06/04/19 09:33) Nausea ANALOGUES Allergy (Uncoded 06/04/19 09:33) Unknown dextromethorphan-guaifenesin Allergy (Uncoded 06/04/19 09:33) Hives macrocryst Allergy (Uncoded 06/04/19 09:33) Unknown Primary Care Physician: Dory Johnson DO [Primary Care Provider] - Prior records reviewed: Yes Past Medical History: - - Reviewed Surgical History: noncontributory, - Lives: Alone Smoking Status: Current every day smoker - Family History Maternal Family History: Reports: Heart Disease Paternal Family History: Reports: COPD Review of Systems General: Denies: Chills, Fever Eyes: Denies: Visual changes - bilaterally ENT: Denies: Bilateral ear pain Cardiovascular: Denies: Chest pain Respiratory: Denies: Dyspnea Gastrointestinal: Denies: Abdominal pain, Nausea, Vomiting Genitourinary: Denies: Dysuria Musculoskeletal: Denies: Neck pain, Back pain Skin: Denies: Rash Neurological: Reports: Headache, Parasthesia Hematologic: Denies: Easy bruising Allergy: Denies: Uticaria Physical Exam Vital Signs/Narrative: Vital Signs Temp Pulse Resp BP Pulse Ox 06/04/19 12:43 84 18 145/79 H 97 06/04/19 09:28 97.8 F 101 H 16 142/78 H 93 Inital Vital Signs reviewed: Yes General: Well nourished, Well developed Head: Normocephalic ENT: Moist mucous membranes Neck: Supple Cardiovascular: Regular rate, Regular rhythm Respiratory: No distress, CTA bilaterally Abdomen: Soft, Nontender Extremities: Nontender, No edema Skin: Normal color, No rash Neurological: Alert, Oriented x3, Normal Strength, Normal Sensation Psychological: Normal affect Diagnostic/Tx/Re-eval Impressions Brain CT 06/04/19 09:34 IMPRESSION: 1. No acute intracranial hemorrhage or mass effect. 2. Central parenchymal volume loss. White matter changes that are nonspecific but most commonly associated with chronic small vessel ischemic disease. Electronically Signed: Brayan Boston MD (Brooks) at 10:49 EDT , Service support , Chest X-Ray 06/04/19 10:38 IMPRESSION: 1. Stable, nonacute x-ray examination of the chest. Electronically Signed: Brayan Boston MD (Brooks) at 11:08 EDT , Service support , 06/04/19 09:34 Brain/Head without Contrast [CT] Stat 06/04/19 10:38 Chest 1 View (Portable) [RAD] Stat Laboratory Results 06/04/19 06/04/19 06/04/19 10:15 10:15 10:15 WBC 9.0 RBC 5.37 Hgb 14.7 Hct 46.4 MCV 86.4 MCH 27.4 MCHC 31.7 L RDW Std Deviation 41.0 RDW Coeff of Jazmín 13.2 Plt Count 197 MPV 10.9 Immature Gran % (Auto) 0.200 Neut % (Auto) 61.1 Lymph % (Auto) 23.2 [place] % (Auto) 12.4 H Eos % (Auto) 2.3 Baso % (Auto) 0.8 Absolute Neuts (auto) 5.5 Absolute Lymphs (auto) 2.09 Nucleated RBC % 0 VBG Carboxyhemoglobin 7.4 H Sodium 139 Potassium 3.4 L Chloride 104 Carbon Dioxide 32.0 Anion Gap 3 L BUN 16 Creatinine 0.79 Estim Creat Clear Calc 40.38 Est GFR (MDRD) Af Amer 90 Est GFR (MDRD) Non-Af 74 BUN/Creatinine Ratio 20.3 H Glucose 109 H Calcium 9.6 - EKG Initial EKG Interpretation: Sinus Rhythm - Sinus at 85 with frequent PVCs. No acute ischemia. - Medical Decision Making Patient reported her symptoms improved upon arrival to the emergency room. On repeat evaluation she is comfortable. I tried to call social work but received a phone call from case management at home today. He did not have any other options for me. Patient believes that she will need to stay at a hotel. She states she does not family that she can stay with and she needs to be close enough to check her mail. Nursing staff called a few of the hotels near her apartment. At this time she is going to go stay at [facility] for the next 2 days. She does have cab voucher and will take a cab there. ED Disposition - Plan for ED Patient: Disposition: Home or Assisted Living Diagnosis: Cephalgia Instructions: HEADACHE, Unspecified Referrals: Dory Johnson DO [Primary Care Provider] - 1-2 Weeks
== END 2019-06-04 13:11 | disposition home or self-care (01) ==
PROVIDERS: Emergency Provider Emergency Medicine; Family Provider Internal Medicine; PCP Internal Medicine
DX: R51 Headache (principal); F17.200 Nicotine dependence, unspecified, uncomplicated; Z88.0 Allergy status to penicillin; Z88.2 Allergy status to sulfonamides; Z88.1 Allergy status to other antibiotic agents
CPT/HCPCS: 70450; 71045; 80048; 82375; 85025; 93005; 96360; 96361; 99285

== ENCOUNTER → 2020-04-18 13:06 | Outpatient (CLI) | payer MEDICARE, SELFPAY ==
[2020-02-07 10:24] VITALS: BMI 23.6
--- NOTE | 2020-04-18 13:09 | BI_ITS ---
MAMMOGRAPHY - BILATERAL SCREENING 3-D TOMOSYNTHESIS REASON FOR EXAM: Female, 80 years old. Routine screening PERTINENT HISTORY: FAM HX NIECE AGE LATE 30S-40S -- LOST WEIGHT -- NO SX. TECHNIQUE: 2-D mammograms and 3-D Tomosynthesis of the breast (s) were performed. CAD was performed. COMPARISON: 04/06/2018 FINDINGS: The breast composition is almost entirely fat. There is a new 8 mm density in the medial aspect of the right breast not seen on the previous study. Recommend further evaluation with spot compression views and ultrasound. Scattered benign calcifications are seen. No other dense spiculated masses or suspicious microcalcifications are identified. No architectural distortion is identified. There is no skin thickening or retraction. There has been no significant change since the prior study. BI/SCREEN MAMM (CAD) W/KARI BILAT IMPRESSION: New 8 mm nodule in the medial aspect of the right breast needs further evaluation with spot compression views and ultrasound. Left breast is stable and unchanged ASSESSMENT CATEGORY: BIRADS Category 0: Incomplete. Need additional imaging evaluation as above. A letter regarding these results will be sent to the patient by the facility within 30 days. FOLLOW UP RECOMMENDATION: Additional imaging recommended as above. (E) Approximately 10% of breast cancers are not detected by mammography. A normal mammogram should not delay biopsy of a clinically suspicious abnormality. Electronically Signed: Carl Alegre MD at 14:41 EDT , Service support ,
--- NOTE | 2020-04-18 13:18 | BD_ITS ---
STUDY: DUAL ENERGY X-RAY ABSORPTIOMETRY / DXA REASON FOR EXAM: Female, 80 years old. Unsure of age of ninfa. Pat is 143.7# and 62.5 and quot; a loss of 4.5 and quot; per patient. Patient has been a smoker for 65 years. Patient uses inhalers and nebulizers. Takes HCTZ. Does not exercise. TECHNIQUE: Bone Mineral Density (BMD) measurements of lumbar spine and bilateral hips were obtained. COMPARISON: None. FINDINGS: Lumbar Spine (L1-L4): g/cm2 (0.926) / T-score (-2.3) / Z-score (-0.4) Findings are suggestive of osteopenia with a high fracture risk. Increased thoracic kyphosis. Left Femur Total: g/cm2 (0.615) / T-score (-3.1) / Z-score (-1.1) Left Femoral Neck: g/cm2 (0.658) / T-score (-2.7) / Z-score (-0.5) Right Femur Total: g/cm2 (0.643) / T-score (-2.9) / Z-score (-0.8) Right Femoral Neck: g/cm2 (0.686) / T-score (-2.5) / Z-score (-0.3) BD/Dexa Bone Density Study IMPRESSION: The patient is considered osteoporotic as outlined below according to World Fran Organization (WHO) criteria with a high fracture risk. Reference Information: The T-score is the number of standard deviations above or below the standard which is normal for young adults at their peak bone mineral density. The World Health Organization (WHO) interprets the T-scores as follows: Above -1 Normal bone density Between -1 and -2.5 Osteopenia Equal to / or below -2.5 Osteoporosis As a practical clinical guideline, osteopenia may be graded as follows: Mild -1 through -1.5 Moderate -1.6 through -2.0 Severe -2.1 through -2.4 The Z-score is the number of standard deviations above or below age-matched controls. A Z-score of less than -1.5 would be considered abnormal. References: 1. NIH Osteoporosis and Related Bone Diseases http://www.osteo.org 2. International Society for Clinical Densitometry http://www.iscd.org 3. National Osteoporosis Foundation http://www.nof.org Electronically Signed: Roberto Carlos Laureano, at 13:00 EDT , Service support ,
== END ==
PROVIDERS: PCP Internal Medicine; Referring Provider Internal Medicine; Visit Provider Internal Medicine
DX: Z78.0 Asymptomatic menopausal state (principal); Z12.31 Encounter for screening mammogram for malignant neoplasm of breast
CPT/HCPCS: 77063; 77067; 77080

== ENCOUNTER → 2020-05-06 07:28 | Outpatient (CLI) | payer MEDICARE, SELFPAY ==
[2020-02-07 10:24] VITALS: BMI 23.6
[2020-05-06 07:57] LABS: Absolute Lymphocyte Count 2.06 X10^3/uL (0.83-4.51); Absolute Neutrophil Count 5.5 X10^3/uL (2.0-7.7); Basophil# 0.06 X10^3/uL; Basophil% 0.7 % (0-1); Eosinophil# 0.28 X10^3/uL; Eosinophils% 3.1 % (0-5); Hematocrit 49.5 % (37-47); Hemoglobin 15.3 g/dL (12.0-15.0); Lymphocyte # 2.06 X10^3/ul (4.0); Mean Corp Hgb Conc 30.9 g/dL (32-36); Mean Corpuscular Hgb 27.6 pg (27.0-32.0); Mean Corpuscular Volume 89.2 fL (81-99); Mean Platelet Vol. 10.5 fl (6.2-12.0); Monocyte% 11.2 % (0-10); NRBC Flagged by Analyzer 0 % (0-5); Neutrophil # 5.53 X10^3/uL (2.7-7.7); Neutrophil % 61.7 % (47-70); Platelet Count 210 K/mm3 (150-450); RBC Distribution Width SD 42.4 fl (35.1-43.9); Red Blood Count 5.55 M/mm3 (4.2-5.4)
[2020-05-06 08:24] LABS: Vitamin D,25 Hydroxy 10.9 ng/mL
[2020-05-06 08:36] LABS: ALB/GLOB Ratio 1.1 RATIO (0.9-2.4); AST(SGOT) 15 U/L (15-37); Alanine Aminotransfer ALT/SGPT 22 U/L (13-56); Alkaline Phosphatase 106 U/L (45-117); Anion Gap 3 (5-15); BUN 14 mg/dL (7-18); BUN/Creat Ratio 16.4 RATIO (10-20); Calcium,Total 9.7 mg/dL (8.5-10.1); Chloride 101 mmol/L (98-107); Cholesterol 157 mg/dL (200); Creatinine, Serum 0.86 mg/dL (0.55-1.02); EST Glomerular Filtration Rate 68 mL/min (>60); Est Glom Filt Rate - Afr Amer 82 mL/min (>60); Free T3 2.9 pg/mL (2.18-3.98); Globulin 3.7 g/dL (2.2-4.2); Glucose 133 mg/dL (74-106); High Density Lipoprotein 55 mg/dL; Potassium 3.9 mmol/L (3.5-5.1); Protein, Total 7.7 g/dL (6.4-8.2); Sodium Level 137 mmol/L (136-145); T4 Free Direct 0.94 ng/dL (0.76-1.46); Thyroid Stim Hormone (TSH) 4.34 uIU/mL (0.358-3.74); Triglycerides 124 mg/dL; Very Low Density Lipoprotein 25 mg/dL (5-40)
== END ==
PROVIDERS: PCP Internal Medicine; Referring Provider Internal Medicine; Visit Provider Internal Medicine
DX: F41.9 Anxiety disorder, unspecified (principal); M81.0 Age-related osteoporosis without current pathological fracture; E03.9 Hypothyroidism, unspecified; I11.9 Hypertensive heart disease without heart failure
CPT/HCPCS: 36415; 80053; 80061; 82306; 84439; 84443; 84481; 85025

== ENCOUNTER → 2020-05-06 07:59 | Outpatient (CLI) | payer MEDICARE, SELFPAY ==
[2020-02-07 10:24] VITALS: BMI 23.6
== END ==
PROVIDERS: PCP Internal Medicine; Referring Provider Internal Medicine; Visit Provider Internal Medicine
DX: R92.8 Other abnormal and inconclusive findings on diagnostic imaging of breast (principal)

== ENCOUNTER → 2020-05-17 09:45 | Outpatient (CLI) | payer MEDICARE, SELFPAY ==
[2020-02-07 10:24] VITALS: BMI 23.6
--- NOTE | 2020-05-17 09:50 | BI_ITS ---
MAMMOGRAPHY - BILATERAL DIAGNOSTIC REASON FOR EXAM: Female, 80 years old. RT AVS FOR 8 MM MEDIAL DESNITY -- FM HX NIECE 30-40''S PERTINENT HISTORY: Abnormal density noted on recent mammogram TECHNIQUE: Digital examination. Spot compression CC and MLO views CAD: CAD was performed on this study. COMPARISON: 04/18/2020 FINDINGS: Breast Composition: There are scattered areas of fibroglandular density. Stable vascular calcifications noted. The previously described 8 mm nodular density in the right breast is not as conspicuous on the spot compression views as it was on the original mammogram. Nonetheless, further evaluation of this area with ultrasound is recommended to exclude an underlying abnormality. BI/DIAG MAMM W/CAD, BILAT IMPRESSION: Further ultrasonographic evaluation recommended, as described above. Recall Side: Right Breast ASSESSMENT CATEGORY: BIRADS Category 0: Incomplete. Need additional imaging evaluation. A letter regarding these results will be sent to the patient by the facility within 30 days. FOLLOW UP RECOMMENDATION: Ultrasound Recommended. (I) Approximately 10% of breast cancers are not detected by mammography. A normal mammogram should not delay biopsy of a clinically suspicious abnormality. Electronically Signed: Carl Alegre MD at 12:21 EDT , Service support ,
--- NOTE | 2020-05-17 09:50 | US_ITS ---
STUDY: ULTRASOUND BREAST - RIGHT REASON FOR EXAM: Female, 80 years old. Abnormal mammogram TECHNIQUE: Axial and longitudinal images of the RIGHT breast were performed with a high resolution ultrasound transducer. # OF IMAGES: 50 COMPARISON: 05/17/2020 FINDINGS: RIGHT Breast: Ultrasound evaluation of the right breast in the area of concern, shows normal dense fibroglandular tissue. There is a small 0.3 x 0.4 x 0.2 cm cyst at 1 o''clock. There is no suspicious shadowing solid lesion, architectural distortion, or clustered shadowing microcalcifications. US/Breast Limited Unilateral IMPRESSION: No suspicious sonographic findings, small simple cyst. Yearly follow-up recommended ASSESSMENT CATEGORY: BIRADS Category 2: Benign. A letter regarding these results will be sent to the patient by the facility within 30 days. Electronically Signed: Carl Alegre MD at 12:10 EDT , Service support ,
== END ==
PROVIDERS: PCP Internal Medicine; Referring Provider Internal Medicine; Visit Provider Internal Medicine
DX: R92.8 Other abnormal and inconclusive findings on diagnostic imaging of breast (principal)
CPT/HCPCS: 76642; 77066

== ENCOUNTER 2020-09-11 19:22 | Emergency (ER) | payer MEDICARE, SELFPAY ==
[2020-09-11] VITALS (7 sets, daily range): BP systolic 118–158; BP diastolic 67–79; PULSE 92–98; RESP 19–22; TEMP 36.8; O2SAT 95–98; BMI 24.0
--- NOTE | 2020-09-11 19:25 | ED.RN ---
PULLED OLD YG FOR
--- NOTE | 2020-09-11 19:41 | EKG12_ITS ---
Test Reason : CP Blood Pressure : / mmHG Vent. Rate : 086 BPM Atrial Rate : 086 BPM P-R Int : 150 ms QRS Dur : 090 ms QT Int : 368 ms P-R-T Axes : 066 042 061 degrees QTc Int : 440 ms Sinus rhythm with occasional Premature ventricular complexes Otherwise normal ECG Confirmed by ANDREA MENDES, GENESIS ([id number]), video effects editor YARA CASTANEDA ([id number]) on 09/16/2020 9:21:21 A M Referred By: Confirmed By:GUS MENDEZ MD
--- NOTE | 2020-09-11 19:42 | ED.DCSUM_ITS ---
History of Present Illness Chief Complaint: Shortness of Breath Detail of Chief Complaint: Low pulse ox Informant: Patient Onset: Today Narrative: Patient states anytime she stands to try to walk today her pulse ox drops into the 80s. She states typically with ambulation her O2 sat will remain 90 to 93%. She is normally on 2 L of oxygen at home. She denies feeling shortness of breath. She has a mild chronic cough that is unchanged from baseline. She denies fever or chills. - Past Medical History (1) Anxiety Status: Chronic (2) COPD (chronic obstructive pulmonary disease) Status: Chronic (3) GERD (gastroesophageal reflux disease) Status: Chronic (4) HTN (hypertension) Status: Chronic (5) Hypothyroidism Status: Chronic (6) Nephrolithiasis Status: Chronic (7) Osteoporosis Status: Chronic (8) PVD (peripheral vascular disease) Status: Chronic Past Medical History - Allergies and Home Meds Allergies/Adverse Reactions: Allergies prednisone Allergy (Severe, Verified 09/11/20 19:31) Lips swelling amoxicillin [From Augmentin] Allergy (Verified 09/11/20 19:31) Unknown ciprofloxacin Allergy (Verified 09/11/20 19:31) Unknown clavulanic acid [From Augmentin] Allergy (Verified 09/11/20 19:31) Unknown dextromethorphan Allergy (Verified 09/11/20 19:31) Hives levofloxacin [From Levaquin] Allergy (Verified 09/11/20 19:31) Anaphylaxis niacin Allergy (Verified 09/11/20 19:31) Pain in joints nitrofurantoin Allergy (Verified 09/11/20 19:31) Unknown propoxyphene Allergy (Verified 09/11/20 19:31) Unknown Sulfa (Sulfonamide Antibiotics) Allergy (Verified 09/11/20 19:31) Hives sulfamethoxazole [From Bactrim] Allergy (Verified 09/11/20 19:31) Hives tetracycline Allergy (Verified 09/11/20 19:31) Unknown trimethoprim [From Bactrim] Allergy (Verified 09/11/20 19:31) Hives clarithromycin [From Biaxin] Adverse Reaction (Mild, Verified 09/11/20 19:31) Rash codeine Adverse Reaction (Verified 09/11/20 19:31) Nausea ANALOGUES Allergy (Uncoded 02/06/20 14:03) Unknown dextromethorphan-guaifenesin Allergy (Uncoded 02/06/20 14:03) Hives macrocryst Allergy (Uncoded 02/06/20 14:03) Unknown Primary Care Physician: Dory Johnson DO [Primary Care Provider] - Prior records reviewed: Yes Surgical History: noncontributory, - Smoking Status: Former smoker - Family History Maternal Family History: Reports: Heart Disease Paternal Family History: Reports: COPD Review of Systems General: Denies: Chills, Fever Eyes: Denies: Visual changes - bilaterally Cardiovascular: Denies: Chest pain Respiratory: Reports: Cough. Denies: Dyspnea, Sputum Gastrointestinal: Denies: Abdominal pain, Nausea, Vomiting, Diarrhea Genitourinary: Denies: Dysuria Musculoskeletal: Denies: Swelling, Extremity Pain Skin: Denies: Rash Hematologic: Denies: Easy bruising, Easy bleeding Allergy: Denies: Uticaria Physical Exam Vital Signs/Narrative: Vital Signs Temp Pulse Resp BP Pulse Ox 09/11/20 19:38 98.3 F 92 22 H 154/79 H 96 09/11/20 19:26 98.3 F 92 22 H 154/79 H 96 Inital Vital Signs reviewed: Yes General: Well nourished, Well developed Head: Normocephalic ENT: Moist mucous membranes Neck: Supple Cardiovascular: Regular rate, Regular rhythm Respiratory: No distress, Diminished Abdomen: Soft, Nontender Extremities: Nontender Skin: Normal color Neurological: Alert, Oriented x3 Psychological: Normal affect Diagnostic/Tx/Re-eval Impressions Chest X-Ray 09/11/20 20:10 IMPRESSION: No acute thoracic pathology. Electronically Signed: Jame Da Silva, at 20:44 EST Tel , Service support , 09/11/20 20:10 Chest 1 View (Portable) [RAD] Stat Laboratory Results 09/11/20 09/11/20 09/11/20 19:34 19:34 19:34 WBC 9.7 RBC 5.48 H Hgb 15.1 H Hct 48.8 H MCV 89.1 MCH 27.6 MCHC 30.9 L RDW Std Deviation 43.0 RDW Coeff of Jazmín 13.1 Plt Count 196 MPV 11.0 Immature Gran % (Auto) 0.300 Neut % (Auto) 60.2 Lymph % (Auto) 24.0 [place] % (Auto) 12.7 H Eos % (Auto) 2.0 Baso % (Auto) 0.8 Absolute Neuts (auto) 5.8 Absolute Lymphs (auto) 2.32 Nucleated RBC % 0 D-Dimer Quant (PE/DVT) 0.35 Sodium 138 Potassium 3.6 Chloride 101 Carbon Dioxide 34.0 H Anion Gap 3 L BUN 16 Creatinine 0.80 Estim Creat Clear Calc 49.63 Est GFR (MDRD) Af Amer 89 Est GFR (MDRD) Non-Af 74 BUN/Creatinine Ratio 20.1 H Glucose 109 H Calcium 9.6 Troponin I < 0.015 COVID-19 (ELIN) 09/11/20 19:57 WBC RBC Hgb Hct MCV MCH MCHC RDW Std Deviation RDW Coeff of Jazmín Plt Count MPV Immature Gran % (Auto) Neut % (Auto) Lymph % (Auto) [place] % (Auto) Eos % (Auto) Baso % (Auto) Absolute Neuts (auto) Absolute Lymphs (auto) Nucleated RBC % D-Dimer Quant (PE/DVT) Sodium Potassium Chloride Carbon Dioxide Anion Gap BUN Creatinine Estim Creat Clear Calc Est GFR (MDRD) Af Amer Est GFR (MDRD) Non-Af BUN/Creatinine Ratio Glucose Calcium Troponin I COVID-19 (ELIN) Negative - EKG Initial EKG Interpretation: Sinus Rhythm - Sinus 86 with occasional PVCs. No acute ischemia. - Medical Decision Making Patient's lungs were clear to auscultation and she did not feel as if she needed breathing treatment. O2 sat remained in the mid to high 90s on her normal oxygen. Covid test is negative. D-dimer and troponin are negative. Patient got up and ambulated to the restroom and back with her normal home oxygen. O2 sat remained at 91%. She did get slightly more short of breath, however oxygen saturation stayed where they normally would with exertion. At this time patient does feel comfortable with discharge to home. I did give her return instructions. ED Disposition - Plan for ED Patient: Disposition: Home or Assisted Living Diagnosis: Dyspnea Instructions: ED Dyspnea Referrals: Dory Johnson DO [Primary Care Provider] - Bowen Wellington DO [STAFF PHYSICIAN] - 3-5 Days if not improving
[2020-09-11 19:49] LABS: Absolute Lymphocyte Count 2.32 X10^3/uL (0.83-4.51); Absolute Neutrophil Count 5.8 X10^3/uL (2.0-7.7); Basophil# 0.08 X10^3/uL; Basophil% 0.8 % (0-1); Eosinophil# 0.19 X10^3/uL; Hematocrit 48.8 % (37-47); Hemoglobin 15.1 g/dL (12.0-15.0); Lymphocyte # 2.32 X10^3/ul (4.0); Mean Corp Hgb Conc 30.9 g/dL (32-36); Mean Corpuscular Hgb 27.6 pg (27.0-32.0); Mean Corpuscular Volume 89.1 fL (81-99); Monocyte# 1.23 X10^3/uL; Monocyte% 12.7 % (0-10); NRBC Flagged by Analyzer 0 % (0-5); Neutrophil # 5.81 X10^3/uL (2.7-7.7); Neutrophil % 60.2 % (47-70); Platelet Count 196 K/mm3 (150-450); RBC Distribution Width CV 13.1 % (11.6-14.6); Red Blood Count 5.48 M/mm3 (4.2-5.4); White Blood Count 9.7 K/mm3 (4.4-11.0)
--- NOTE | 2020-09-11 20:10 | RAD_ITS ---
STUDY: X-RAY CHEST REASON FOR EXAM: Female, 80 years old. Shortness of breath TECHNIQUE: Frontal view of the chest COMPARISON: 06/04/19 FINDINGS: The lungs are hyperinflated, but clear. There are no pleural effusions. There is no pneumothorax. The heart is normal in size. The visualized osseous structures are within normal limits. RAD/Chest 1 View (Portable) IMPRESSION: No acute thoracic pathology. Electronically Signed: Jame Da Silva, at 20:44 EST Tel , Service support ,
[2020-09-11 20:16] LABS: Anion Gap 3 (5-15); BUN 16 mg/dL (7-18); BUN/Creat Ratio 20.1 RATIO (10-20); Calcium,Total 9.6 mg/dL (8.5-10.1); Chloride 101 mmol/L (98-107); EST Glomerular Filtration Rate 74 mL/min (>60); Est Glom Filt Rate - Afr Amer 89 mL/min (>60); Estimated Creatinine Clearance 49.63 ml/min; Glucose 109 mg/dL (74-106); Potassium 3.6 mmol/L (3.5-5.1); Sodium Level 138 mmol/L (136-145)
[2020-09-11 20:23] LABS: D-Dimer Quantitative (DVT/PE) 0.35 FEU/ug/m (0.27-0.49)
[2020-09-11 22:09] LABS: Probe Check PASS; Specimen Processing Control PASS
== END 2020-09-11 23:30 | disposition home or self-care (01) ==
PROVIDERS: Emergency Provider Emergency Medicine; PCP Internal Medicine
DX: R06.00 Dyspnea, unspecified (principal); R06.02 Shortness of breath; R05 Cough; J44.9 Chronic obstructive pulmonary disease, unspecified; E03.9 Hypothyroidism, unspecified; I10 Essential (primary) hypertension; I73.9 Peripheral vascular disease, unspecified; K21.9 Gastro-esophageal reflux disease without esophagitis; M81.0 Age-related osteoporosis without current pathological fracture; Z82.49 Family history of ischemic heart disease and other diseases of the circulatory system; Z88.0 Allergy status to penicillin; Z88.1 Allergy status to other antibiotic agents; Z88.2 Allergy status to sulfonamides; Z88.5 Allergy status to narcotic agent
CPT/HCPCS: 71045; 80048; 84484; 85025; 85379; 87635; 93005; 99285; A4216; U0002

== ENCOUNTER → 2021-07-18 13:26 | Outpatient (CLI) | payer MEDICARE, SELFPAY ==
--- NOTE | 2021-07-18 13:30 | RAD_ITS ---
STUDY: X-RAY CHEST REASON FOR EXAM: Female, 81 years old. Hypoxemia. TECHNIQUE: PA and lateral views of the chest. COMPARISON: Comparison is made with prior study dated 12/12/2019. FINDINGS: There is hyperinflation of the lungs consistent with chronic obstructive lung disease (COPD). Stable mild increased linear markings at the lung bases suggestive of scarring. There is no demonstrated pleural abnormality. Normal size heart. Normal mediastinum and ignacio. Normal visualized pulmonary arteries. There is atherosclerotic calcification of the aortic arch with tortuosity. There are diffuse degenerative changes of the visualized thoracic spine. Increased kyphosis. Normal visualized ribs, clavicles, and shoulders. There is no demonstrated abnormality of the visualized soft tissue structures of the upper abdomen. RAD/Chest PA and Lateral IMPRESSION: Hyperinflation. Stable mild increased linear markings at the lung bases suggestive of scarring. Electronically Signed: Roberto Carlso Laureano MD at 13:54 EDT , Service support ,
[2021-07-18 14:11] LABS: D-Dimer Quantitative (DVT/PE) 0.44 FEU/ug/m (0.27-0.49)
== END ==
PROVIDERS: PCP Internal Medicine; Referring Provider Internal Medicine; Visit Provider Internal Medicine
DX: R09.02 Hypoxemia (principal); R06.02 Shortness of breath
CPT/HCPCS: 36415; 71046; 85379

== ENCOUNTER → 2022-05-19 | Outpatient (CLI) | payer MEDICARE, SELFPAY ==
--- NOTE | 2022-05-19 08:29 | BI_ITS ---
MAMMOGRAPHY - BILATERAL SCREENING REASON FOR EXAM: Female, 82 years old. Routine annual screening examination. PERTINENT HISTORY: Non-contributory. TECHNIQUE: Digital bilateral breast kari (3D mammographic acquisition) in the CC and MLO projections. 2-D mediolateral oblique (MLO) and craniocaudad (CC) views of both breasts were obtained. CAD: Full Field Digital Mammography with Computer Added Detection was performed. COMPARISON: Comparison is made with prior study dated 04/18/2020 and 05/17/2020. FINDINGS: Breast Composition: There are scattered areas of fibroglandular density. There are no dominant masses or suspicious calcifications. The previously seen 8 mm well-defined nodule in the medial aspect of the right breast is not seen*most likely represented resorption of a cyst. No other significant abnormalities are identified. There has been no significant change since the prior study. BI/SCRN MAMM (CAD)W/KARI BILAT IMPRESSION: Stable bilateral screening mammogram. Yearly follow-up mammogram recommended. (A) ASSESSMENT CATEGORY: BIRADS Category 2: Benign. A letter regarding these results will be sent to the patient by the facility within 30 days. Approximately 10% of breast cancers are not detected by mammography. A normal mammogram should not delay biopsy of a clinically suspicious abnormality. [id number] Electronically Signed: Roberto Carlos Laureano MD at 10:26 EDT ,
== END | disposition home or self-care (01) ==
LOC: OPBI 08:25
PROVIDERS: PCP Internal Medicine; Referring Provider Internal Medicine; Visit Provider Internal Medicine
DX: Z12.31 Encounter for screening mammogram for malignant neoplasm of breast (principal)
CPT/HCPCS: 77063; 77067

== ENCOUNTER 2022-09-19 16:06 | Emergency (ER) | payer MEDICARE, SELFPAY ==
[2022-09-19 16:07] VITALS: BP 156/93; PULSE 96; RESP 29; TEMP 36.7; O2SAT 97; BMI 19.0
[2022-09-19 17:55] VITALS: RESP 18
--- NOTE | 2022-09-19 17:56 | EDS_ITS ---
HPI History of Present Illness Chief Complaint: Allergic Reaction Informant: patient Onset/Context/Timing Onset: Today Context: Gradual Onset Current Severity: Gone Maximum Severity: Mild Narrative Narrative: 82-year-old female history of COPD and peripheral arterial disease. Has an allergy to sulfa. Is supposed to have cataract surgery by [facility] this coming week. She was placed on sulfa eyedrops. Says she took them this morning and again this afternoon and started having shortness of breath. She believes allergic reaction to the sulfa. Symptoms have since resolved. She denies any fever or chills. She denies any chest pain. No fever or cough. Denies any lip or tongue swelling. Prior similar symptoms: Yes Recent Illness/Hospitalization: No PFSH PFSH Medical History Allergic rhinitis Anxiety COPD (chronic obstructive pulmonary disease) Diarrhea Diverticulosis of colon GERD (gastroesophageal reflux disease) Hypokalemia Hypothyroidism Hypoxemia Low HDL (under 40) Nausea and vomiting Nephrolithiasis Osteoporosis PVD (peripheral vascular disease) Smoker Weight loss Home Medications hydrochlorothiazide 25 mg tablet 12.5 mg PO DAILY blood pressure 08/03/17 [History Last Taken 01/01/19 12.5 MG] albuterol sulfate 90 mcg/actuation aerosol inhaler 1 - 2 puff inhalation Q4H PRN PRN dyspnea, wheezing ##1 08/06/17 [Rx Last Taken 01/01/19 1 - 2 PUFF] albuterol sulfate 2.5 mg/3 mL (0.083 %) solution for nebulization 2.5 mg (3 mL) inhalation Q4H PRN Sob &/Or Wheezing #180 mL 06/10/21 [Rx Last Taken Unknown] albuterol sulfate 2.5 mg/3 mL (0.083 %) solution for nebulization 2.5 mg (3 mL) inhalation Q4H PRN shortness of breath or wheezing #180 mL 05/01/22 [Rx Last Taken Unknown] albuterol sulfate 90 mcg/actuation aerosol inhaler 2 puff inhalation Q4H PRN shortness of breath or wheezing #8.5 grams 05/01/22 [Rx Last Taken Unknown] Allergy/AdvReac Type Severity Reaction Status Date / Time prednisone Allergy Severe Lips Verified 09/19/22 16:11 swelling amoxicillin [From Augmentin] Allergy Unknown Verified 09/19/22 16:11 ciprofloxacin Allergy Unknown Verified 09/19/22 16:11 clavulanic acid Allergy Unknown Verified 09/19/22 16:11 [From Augmentin] dextromethorphan Allergy Hives Verified 09/19/22 16:11 guaifenesin Allergy Hives Verified 09/19/22 16:11 levofloxacin [From Levaquin] Allergy Anaphylaxis Verified 09/19/22 16:11 niacin Allergy Pain in Verified 09/19/22 16:11 joints nitrofurantoin Allergy Unknown Verified 09/19/22 16:11 propoxyphene Allergy Unknown Verified 09/19/22 16:11 Sulfa (Sulfonamide Allergy Hives Verified 09/19/22 16:11 Antibiotics) sulfamethoxazole Allergy Hives Verified 09/19/22 16:11 [From Bactrim] tetracycline Allergy Unknown Verified 09/19/22 16:11 trimethoprim [From Bactrim] Allergy Hives Verified 09/19/22 16:11 clarithromycin [From Biaxin] AdvReac Mild Rash Verified 09/19/22 16:11 codeine AdvReac Nausea Verified 09/19/22 16:11 ANALOGUES Allergy Unknown Uncoded 09/19/22 16:11 macrocryst Allergy Unknown Uncoded 09/19/22 16:11 Surgical History History of arthroscopy of left knee History of cholecystectomy History of foot surgery History of tubal ligation Social History Smoking Status: Light Smoker (<10/day) second hand exposure: Yes counseling given: provider counseling alcohol intake: never substance use type: does not use caffeine: No what type of physical activity do you participate in: walking frequency: daily ROS ROS ED ROS Narrative Shortness of breath since resolved. Review of Systems ROS Unobtainable: Denies due to encephalopathy Constitutional Constitutional ED: Denies chills or fever(s) Eyes Eyes: Denies blurry vision ENT ENT ED: Denies ear pain Cardiovascular Cardiovascular: Denies chest pain Respiratory/Chest Respiratory/Chest: Reports dyspnea; Denies cough Gastrointestinal Gastrointestinal: Denies abdominal pain Genitourinary Genitourinary ED: Denies dysuria or hematuria Musculoskeletal Musculoskeletal: Denies arthralgias Integumentary Denies abscess Neurologic Neurologic: Denies headache(s) Psychiatric Psychiatric: Denies anxiety Endocrine Endocrinology: Denies cold intolerance Hematologic/Lymphatic Hematologic/Lymphatic: Reports none Allergic/Immunologic Allergic/Immunologic ED: Denies mouth swelling, tongue swelling or urticaria EXAM Physical Exam Narrative Exam Narrative: Well-appearing 82-year-old female. Vital signs stable afebrile. Pulse ox 97% on 2 L which is her home O2. H EENT exam unremarkable. Moist Riis membranes. No lip or tongue swelling. No trouble breathing or swallowing. No stridor or drooling. Neck nontender. Lungs clear to auscultation. Heart regular rhythm r ate about 95 no murmur. Chest wall nontender. Abdomen soft nontender. Moving all 4 extremities. Calves are nontender without edema or cords. Neurologically she is awake alert with no focal motor deficits. Const Vital Signs: 09/19/22 16:07 Temperature 98.0 F Temperature Source Oral Pulse Rate 96 Respiratory Rate 29 H Blood Pressure 156/93 H Blood Pressure Mean 114 Pulse Ox 97 Oxygen Delivery Method Nasal Cannula Oxygen Flow Rate (L/min) 2 Positive well nourished and well developed; Negative for obese, cachectic, contractures or unkempt General Appearance ED: well developed and NAD; Negative for unkempt, cachectic, contractures, cyanotic or diaphoretic Nutritional Appearance: Negative for cachectic or obese HEENT Reports moist mucous membranes; Denies dry mucous membranes Negative for trauma or tenderness Mouth ED: No dry mucous membranes Mouth: No dry mucous membranes Eyes PERRL and EOMs intact bilaterally General Eye ED: Negative for pale conjunctiva or scleral icterus Neck no lymphadenopathy, supple and no JVD General: Negative for tenderness Lymph Lymphatic: Negative for other Chest Wall inspection of chest normal and palpation of chest normal Chest: Negative for other Resp normal respiratory effort and clear to auscultation bilaterally Effort and Inspection: Negative for retractions Auscultation: Negative for rales, rhonchi or wheezes Cardio regular rate, regular rhythm, S1 normal heart sound, S2 normal heart sound and no murmurs Rate: Negative for bradycardia or tachycardic Rhythm: Negative for abnormal rhythm GI normal to inspection, nondistended, normoactive bowel sounds, non-tender, non- distended and no masses Inspection: Negative for abdominal distention Auscultation: normoactive bowel sounds Palpation: soft; Negative for tender or guarding Back/Spine no CVA tenderness General Back: Negative for CVA tenderness Cervical Spine: Negative for cervical spine tenderness Thoracic Spine / Upper Back: Negative for thoracic spinal tenderness Lumbar Spine / Lower Back: Negative for lumbar spinal tenderness Extremity normal to inspection General Extremety ED: Negative for edema or tenderness General Extremity: Negative for edema Neuro oriented x3 and CN's II-XII intact bilaterally Sensorium / Orientation: alert; Negative for orientation impaired, lethargic or stuporous Motor Exam: strength 5/5 throughout Psych mental status grossly normal Appearance: Negative for unkempt Attitude: No agitated Mood & Affect: Negative for depressed, anxious or tearful Skin no rashes or lesions noted and no wounds General Skin Exam: Negative for elasticity normal Lesions: No lesion noted Rashes: No rashes noted Trauma: Negative for abrasion Wounds: Negative for wounds noted MDM MDM MDM Narrative Medical decision making narrative: 82-year-old with possible allergic reaction to sulfa eyedrops. Exam is benign. She will be observed that she is doing well should be discharged home. Stop the eyedrops. Follow-up with her mechanist. Discharge Plan Triage Chief Complaint: Allergic Reaction ED Provider: Sean Wild Dx/Rx/DC Orders Clinical Impression: Acute dyspnea, Allergic reaction, History of COPD Instructions: ED ADVERSE DRUG REACTION Allergic Prescriptions: No Action albuterol sulfate 90 mcg/actuation HFA aerosol inhaler 2 puff inhalation Q4H PRN (Reason: shortness of breath or wheezing) Qty: 8.5 6RF Rx Instructions: administer with spacer albuterol sulfate 2.5 mg /3 mL (0.083 %) solution for nebulization 2.5 mg inhalation Q4H PRN (Reason: shortness of breath or wheezing) Qty: 180 6RF hydrochlorothiazide 25 MG tablet 12.5 mg PO DAILY Label Comments: blood pressure albuterol sulfate 1 INHALER inhaler 1 - 2 puff INHALATION Q4H PRN PRN (Reason: dyspnea, wheezing) Qty: 1 0RF Rx Instructions: Dx: Chronic COPD albuterol sulfate 2.5 mg /3 mL (0.083 %) solution for nebulization 2.5 mg INHALATION Q4H PRN (Reason: Sob &/Or Wheezing) Qty: 180 6RF Primary Care Provider: Dory Johnson Referrals: Dory Johnson, DO [Primary Care Provider] - 1-2 Days if not improving Activity Restrictions/Additional Instructions: Obviously, stop the eyedrop medication they have sulfa in them. Call and follow-up with your mechanist on Wednesday. Return if worse. Disposition Disposition: Home, Self Care
== END 2022-09-19 18:55 | disposition home or self-care (01) ==
PROVIDERS: Emergency Provider Emergency Medicine; PCP Internal Medicine; Visit Provider Emergency Medicine
DX: R06.00 Dyspnea, unspecified (principal); T78.40XA Allergy, unspecified, initial encounter; F17.200 Nicotine dependence, unspecified, uncomplicated; X58.XXXA Exposure to other specified factors, initial encounter
CPT/HCPCS: 99284

== ENCOUNTER 2022-10-18 21:40 | Inpatient (IN) | payer MEDICARE, SELFPAY ==
[2022-10-18 21:41] VITALS: BP 133/78; PULSE 98; RESP 17; TEMP 36.6; O2SAT 94; BMI 16.3
--- NOTE | 2022-10-18 22:12 | ED.VIS.DYS ---
HPI History of Present Illness Chief Complaint: Shortness of Breath Narrative Narrative: Patient is an 82-year-old female with history of COPD on chronic O2 presenting with worsening shortness of breath.Patient has been feeling more short of breath for the past few days. She states her cough is different. She notes that her cough seems so intense that she will feel like she is going to vomit. She denies any change in bowel habits or abdominal pain. She denies any chest pain. She denies any fever or chills. She was more short of breath doing anything around her house. EMS told her that her tubing to her oxygen was too long. Patient wears 1/2 L at baseline. She has had decreased appetite. Lives alone. Denies any chest pain or leg swelling. No other complaints at this time. Chart review shows that patient follows with Dr. Wellington, pulmonology. She is on 2 L of oxygen baseline and is on triple therapy inhaler regimen with Symbicort, Spiriva and as needed albuterol. Pulmonary function test have shown reversible severe large airway obstruction of the large defect with associated air trapping and symmetric reduction diffusion capacity. PFSH PFSH Medical History Allergic rhinitis Anxiety Chronic respiratory failure with hypoxia COPD (chronic obstructive pulmonary disease) Diverticulosis of colon GERD (gastroesophageal reflux disease) Hypothyroidism Low HDL (under 40) Nephrolithiasis Osteoporosis PVD (peripheral vascular disease) Severe protein-calorie malnutrition Tobacco use Home Medications hydrochlorothiazide 25 mg tablet 12.5 mg PO DAILY blood pressure 08/03/17 [History Last Taken 01/01/19 12.5 MG] albuterol sulfate 90 mcg/actuation aerosol inhaler 1 - 2 puff inhalation Q4H PRN PRN dyspnea, wheezing ##1 08/06/17 [Rx Last Taken 01/01/19 1 - 2 PUFF] albuterol sulfate 2.5 mg/3 mL (0.083 %) solution for nebulization 2.5 mg (3 mL) inhalation Q4H PRN Sob &/Or Wheezing #180 mL 06/10/21 [Rx Last Taken Unknown] budesonide-formoterol HFA 80 mcg-4.5 mcg/actuation aerosol inhaler (Symbicort) 1 puff inhalation BID shortnes of breath 10/19/22 [History Last Taken Unknown] tiotropium bromide 1.25 mcg/actuation mist for inhalation (Spiriva Respimat) 1 puff inhalation DAILY breathing 10/19/22 [History Last Taken Unknown] Allergy/AdvReac Type Severity Reaction Status Date / Time prednisone Allergy Severe Lips Verified 09/19/22 16:11 swelling amoxicillin [From Augmentin] Allergy Unknown Verified 09/19/22 16:11 ciprofloxacin Allergy Unknown Verified 09/19/22 16:11 clavulanic acid Allergy Unknown Verified 09/19/22 16:11 [From Augmentin] dextromethorphan Allergy Hives Verified 09/19/22 16:11 guaifenesin Allergy Hives Verified 09/19/22 16:11 levofloxacin [From Levaquin] Allergy Anaphylaxis Verified 09/19/22 16:11 niacin Allergy Pain in Verified 09/19/22 16:11 joints nitrofurantoin Allergy Unknown Verified 09/19/22 16:11 propoxyphene Allergy Unknown Verified 09/19/22 16:11 Sulfa (Sulfonamide Allergy Hives Verified 09/19/22 16:11 Antibiotics) sulfamethoxazole Allergy Hives Verified 09/19/22 16:11 [From Bactrim] tetracycline Allergy Unknown Verified 09/19/22 16:11 trimethoprim [From Bactrim] Allergy Hives Verified 09/19/22 16:11 clarithromycin [From Biaxin] AdvReac Mild Rash Verified 09/19/22 16:11 codeine AdvReac Nausea Verified 09/19/22 16:11 ANALOGUES Allergy Unknown Uncoded 09/19/22 16:11 macrocryst Allergy Unknown Uncoded 09/19/22 16:11 Family History Mother Heart disease Father COPD (chronic obstructive pulmonary disease) Surgical History History of appendectomy History of arthroscopy of left knee History of cholecystectomy History of foot surgery History of gynecologic surgery History of tubal ligation Social History Smoking Status: Light Smoker (<10/day) second hand exposure: Yes counseling given: provider counseling alcohol intake: never substance use type: does not use caffeine: No what type of physical activity do you participate in: walking frequency: daily ROS ROS ED Constitutional Constitutional ED: Denies chills or fever(s) Eyes Eyes: Denies change in vision ENT ENT ED: Denies rhinorrhea or sore throat Cardiovascular Cardiovascular: Denies chest pain or palpitations Respiratory/Chest Respiratory/Chest: Reports cough, dyspnea and dyspnea on exertion Gastrointestinal Gastrointestinal: Reports nausea and vomiting; Denies abdominal pain Genitourinary Genitourinary ED: Denies dysuria or hematuria Musculoskeletal Musculoskeletal: Denies arthralgias or myalgias Integumentary Denies rash Neurologic Neurologic: Denies headache(s) or weakness Psychiatric Psychiatric: Denies anxiety Hematologic/Lymphatic Hematologic/Lymphatic: Denies easy bleeding or easy bruising EXAM Physical Exam Const Vital Signs: 10/18/22 21:41 10/18/22 21:49 10/18/22 23:08 Temperature 97.8 F Temperature Source Temporal Pulse Rate 98 99 Respiratory Rate 17 18 Respiratory Effort Short of Breath Respiratory Depth Normal Respiratory Pattern Normal Blood Pressure 133/78 H Blood Pressure Mean 96 Pulse Ox 94 Oxygen Delivery Method Nasal Cannula Oxygen Flow Rate (L/min) 1 Positive well developed and cachectic General Appearance ED: well developed, cachectic and NAD Nutritional Appearance: cachectic HEENT Reports moist mucous membranes atraumatic Eyes PERRL and EOMs intact bilaterally Neck supple and no JVD Resp Resp Narrative: Diminished breath sounds at the bases. No wheezing appreciated. Pursed lip breathing. Cardio regular rate, regular rhythm and no murmurs GI non-tender and non-distended Extremity normal to inspection General Extremety ED: Negative for edema or tenderness General Extremity: Negative for edema Neuro oriented x3 Neuro Narrative: No focal deficits appreciated Sensorium / Orientation: alert Psych mental status grossly normal Skin no wounds Rashes: no rashes MDM MDM MDM Narrative Medical decision making narrative: Patient's evaluate for shortness of breath generalized weakness and decreased appetite. On exam patient appears quite cachectic and does seem short of breath with some conversational dyspnea. She is requiring 3 L of oxygen which is above her baseline. Cardiopulmonary work-up is performed. Patient is given a DuoNeb with no significant improvement of her symptoms. She states it makes her cough and it makes her feel more nauseous. Vital signs are stable in the ER. She is found to have a mild leukocytosis 11.1, BMP remarkable for hyponatremia with a sodium of 130, bicarb of 19, anion gap of 17 as well as a significantly elevated BUN/creatinine of 111/4.03. This is acute for the patient. Patient's BNP is normal as well as her high-sensitivity troponin. EKG shows nonspecific changes but not consistent with ACS. COVID test is positive. Patient is given 150cc/h normal saline. As she is allergic to prednisone she states she is tolerated Solu-Medrol the past so she is given a bolus of Solu-Medrol. Suspect patient became acutely dehydrated which caused her ALLEN and hyponatremia. She will be admitted for further hydration and respiratory monitoring. Patient is agreeable with this plan of care. While patient does have acute renal failure her potassium is normal and she does not have signs of fluid overload. I do not think she requires emergent dialysis. Lab Data Attestation: I reviewed the patient's lab results. Labs: Laboratory Results - last 24 hr 10/18/22 10/18/22 10/18/22 22:28 22:28 22:28 WBC 11.1 H RBC 5.25 Hgb 15.4 H Hct 45.5 MCV 86.7 MCH 29.3 MCHC 33.8 RDW Std Deviation 45.4 H RDW Coeff of Jazmín 14.1 Plt Count 273 MPV 11.5 Immature Gran % (Auto) 0.500 Neut % (Auto) 79.8 H Lymph % (Auto) 8.4 L [place] % (Auto) 11.2 H Eos % (Auto) 0.0 Baso % (Auto) 0.1 Absolute Neuts (auto) 8.9 H Absolute Lymphs (auto) 0.94 Nucleated RBC % 0 Sodium 130 L Potassium 4.6 Chloride 94 L Carbon Dioxide 19.0 L Anion Gap 17 H BUN 111 H* Creatinine 4.03 H Estim Creat Clear Calc 6.78 Est GFR (MDRD) Af Amer 14 L Est GFR (MDRD) Non-Af 11 L BUN/Creatinine Ratio 27.5 H Glucose 136 H Serum Osmolality Calcium 9.1 Ferritin Total Bilirubin 0.70 AST 20 ALT 21 Alkaline Phosphatase 78 Lactate Dehydrogenase Troponin I High Sens 16 C-React Prot Ext Range B-Natriuretic Peptide 38.0 Total Protein 7.9 Albumin 3.7 Globulin 4.2 Albumin/Globulin Ratio 0.9 Lipase 124 Acetone Level 10/18/22 10/18/22 22:28 22:28 WBC RBC Hgb Hct MCV MCH MCHC RDW Std Deviation RDW Coeff of Jazmín Plt Count MPV Immature Gran % (Auto) Neut % (Auto) Lymph % (Auto) [place] % (Auto) Eos % (Auto) Baso % (Auto) Absolute Neuts (auto) Absolute Lymphs (auto) Nucleated RBC % Sodium Potassium Chloride Carbon Dioxide Anion Gap BUN Creatinine Estim Creat Clear Calc Est GFR (MDRD) Af Amer Est GFR (MDRD) Non-Af BUN/Creatinine Ratio Glucose Serum Osmolality 325 H Calcium Ferritin 1620 H Total Bilirubin AST ALT Alkaline Phosphatase Lactate Dehydrogenase 219 Troponin I High Sens C-React Prot Ext Range 43.70 H B-Natriuretic Peptide Total Protein Albumin Globulin Albumin/Globulin Ratio Lipase Acetone Level SMALL H Radiography Chest X-Ray - ED: 2 View, Read by ED Physician, Read by Radiologist and No Acute Disease Diagnostic Testing: Clinical Impression(s) from Imaging Studies Chest X-Ray 10/18/22 22:50 IMPRESSION: COPD and mild basilar atelectatic changes. Electronically Signed: Mainor Shrestha MD at 23:17 EST , Rhythm Strip Rhythm Strip: Sinus Rhythm Rate: 87 Ectopy: None EKG Initial EKG: Attestation: I personally reviewed and interpreted this EKG as follows: Interpretation: Sinus Rhythm Comments: Normal sinus rhythm at a rate of 87 bpm Normal axis Right atrial enlargement Nonspecific ST segment abnormalities Normal intervals Discharge Plan Dx/Rx/DC Orders Clinical Impression: Acute renal failure (ARF), COPD (chronic obstructive pulmonary disease), Acute dehydration, Acute and chronic respiratory failure with hypoxia, Acute hyponatremia, COVID-19 Disposition Disposition: [facility] Discharge Date/Time: 10/19/22 00:35
--- NOTE | 2022-10-18 22:50 | RAD_ITS ---
INDICATION: Shortness of breath EXAMINATION/TECHNIQUE: X-RAY - AP and lateral views of chest COMPARISON: Two-view chest x-ray from 07/18/2021 FINDINGS: LINES/DEVICES: None. LUNGS: Hyperexpanded lungs again noted with mild posterior basilar atelectatic changes. No sizable pleural effusion. No detectable pneumothorax. MEDIASTINUM AND CARDIOVASCULAR STRUCTURES: Heart normal size. Atherosclerotic calcifications along aorta. BONES AND SOFT TISSUES: Skeletal degenerative changes. RAD/Chest PA and Lateral IMPRESSION: COPD and mild basilar atelectatic changes. Electronically Signed: Mainor Shrestha MD at 23:17 EST ,
[2022-10-18 22:52] LABS: Absolute Lymphocyte Count 0.94 X10^3/uL (0.83-4.51); Absolute Neutrophil Count 8.9 X10^3/uL (2.0-7.7); Basophil# 0.01 X10^3/uL; Basophil% 0.1 % (0-1); Hematocrit 45.5 % (37-47); Hemoglobin 15.4 g/dL (12.0-15.0); Lymphocyte # 0.94 X10^3/ul (0.83-4.51); Lymphocyte % 8.4 % (19-41); Mean Corp Hgb Conc 33.8 g/dL (32-36); Mean Corpuscular Hgb 29.3 pg (27.0-32.0); Mean Corpuscular Volume 86.7 fL (81-99); Mean Platelet Vol. 11.5 fl (6.2-12.0); Monocyte# 1.25 X10^3/uL; Monocyte% 11.2 % (0-10); NRBC Flagged by Analyzer 0 % (0-5); Neutrophil # 8.87 X10^3/uL (2.7-7.7); Neutrophil % 79.8 % (47-70); Platelet Count 273 K/mm3 (150-450); RBC Distribution Width CV 14.1 % (11.6-14.6); RBC Distribution Width SD 45.4 fl (35.1-43.9); Red Blood Count 5.25 M/mm3 (4.2-5.4); White Blood Count 11.1 K/mm3 (4.4-11.0)
[2022-10-18] MEDS: 0.9% Normal Saline 1,000 ML 150 ML IV (23:00)
[2022-10-18 23:08] VITALS: PULSE 99; RESP 18
[2022-10-18] MEDS: Ipratropium/Albuterol Sulfate 3 ML AMPUL.NEB INHALATION (23:08)
[2022-10-18 23:13] LABS: ALB/GLOB Ratio 0.9 RATIO (0.9-2.4); AST(SGOT) 20 U/L (15-37); Alanine Aminotransfer ALT/SGPT 21 U/L (13-56); Albumin, Serum 3.7 g/dL (3.2-5.0); Alkaline Phosphatase 78 U/L (45-117); Anion Gap 17 (5-15); BUN 111 mg/dL (7-18); BUN/Creat Ratio 27.5 RATIO (10-20); Calcium,Total 9.1 mg/dL (8.5-10.1); Chloride 94 mmol/L (98-107); Creatinine, Serum 4.03 mg/dL (0.55-1.02); EST Glomerular Filtration Rate 11 mL/min (>60); Est Glom Filt Rate - Afr Amer 14 mL/min (>60); Estimated Creatinine Clearance 6.78 ml/min; Globulin 4.2 g/dL (2.2-4.2); Glucose 136 mg/dL (74-106); Lipase 124 U/L (73-393); Potassium 4.6 mmol/L (3.5-5.1); Protein, Total 7.9 g/dL (6.4-8.2); Sodium Level 130 mmol/L (136-145); Troponin-I HS 16 pg/mL (3.0-54.0)
--- NOTE | 2022-10-18 23:37 | HP.PCM.HOS_ITS ---
HPI - General General Date of Admission: 10/18/22 Date of Service: 10/18/22 Chief Complaint: Dyspnea, cough. HPI Narrative The patient is an 82 y/o F w/ PMHx: Severe protein-calorie malnutrition, Tobacco use, PVD, Hypothyroidism, GERD, Anxiety and Depression, COPD w/ Chronic Hypoxic Respiratory Failure (2L NC) following w/ Pulmonary Dr. Wellington, HTN, HLD, Hx Cervical CA s/p chemotherapy and radiation, Hx prior SBO who presents to the [facility] ED on 10/18/22 with history of onset progressively worsening dyspnea over the last 2 to 3 days with cough changed from her prior chronic with intense bouts causing nausea and emesis with concurrent occasional loose stool but no associated abdominal pain. She notes the dyspnea is worse with activity a ttempts, even with moving around her house prompting ED evaluation. She does admit to a decreased appetite. She denies headache, sore throat, body aches, fever or chills. She states she has not been vaccinated against COVID. She denies ill contacts. Per report EMS noted that her breathing oxygenation tubing was significantly long and may be contributing to her issue. Work-up in the ED included T97.8, heart rate 98, BP 133/78, respiratory rate 17, 94% on 1 L nasal cannula initially assessed in the ED, CBC with WC 11.1, hemoglobin 15.4, platelet 273 with left shift, CMP with sodium 130, chloride 94, carbon oxide 19, anion gap 17, BUN/creatinine 111/4.03, glucose 136, troponin 16, BNP 38, lipase 124, chest x-ray with COPD and mild bibasilar atelectatic changes, SARS COVID and influenza with positive COVID status. In the ED patient initiated on normal saline maintenance IV fluids, DuoNeb therapy, IV solumedrol. FOR[facility]LY [facility] Medical History Allergic rhinitis Anxiety Chronic respiratory failure with hypoxia COPD (chronic obstructive pulmonary disease) Diverticulosis of colon GERD (gastroesophageal reflux disease) Hypothyroidism Low HDL (under 40) Nephrolithiasis Osteoporosis PVD (peripheral vascular disease) Severe protein-calorie malnutrition Tobacco use Home Medications hydrochlorothiazide 25 mg tablet 12.5 mg PO DAILY blood pressure 08/03/17 [History Last Taken 01/01/19 12.5 MG] albuterol sulfate 90 mcg/actuation aerosol inhaler 1 - 2 puff inhalation Q4H PRN PRN dyspnea, wheezing ##1 08/06/17 [Rx Last Taken 01/01/19 1 - 2 PUFF] albuterol sulfate 2.5 mg/3 mL (0.083 %) solution for nebulization 2.5 mg (3 mL) inhalation Q4H PRN Sob &/Or Wheezing #180 mL 06/10/21 [Rx Last Taken Unknown] albuterol sulfate 2.5 mg/3 mL (0.083 %) solution for nebulization 2.5 mg (3 mL) inhalation Q4H PRN shortness of breath or wheezing #180 mL 05/01/22 [Rx Last Taken Unknown] albuterol sulfate 90 mcg/actuation aerosol inhaler 2 puff inhalation Q4H PRN shortness of breath or wheezing #8.5 grams 05/01/22 [Rx Last Taken Unknown] Allergy/AdvReac Type Severity Reaction Status Date / Time prednisone Allergy Severe Lips Verified 09/19/22 16:11 swelling amoxicillin [From Augmentin] Allergy Unknown Verified 09/19/22 16:11 ciprofloxacin Allergy Unknown Verified 09/19/22 16:11 clavulanic acid Allergy Unknown Verified 09/19/22 16:11 [From Augmentin] dextromethorphan Allergy Hives Verified 09/19/22 16:11 guaifenesin Allergy Hives Verified 09/19/22 16:11 levofloxacin [From Levaquin] Allergy Anaphylaxis Verified 09/19/22 16:11 niacin Allergy Pain in Verified 09/19/22 16:11 joints nitrofurantoin Allergy Unknown Verified 09/19/22 16:11 propoxyphene Allergy Unknown Verified 09/19/22 16:11 Sulfa (Sulfonamide Allergy Hives Verified 09/19/22 16:11 Antibiotics) sulfamethoxazole Allergy Hives Verified 09/19/22 16:11 [From Bactrim] tetracycline Allergy Unknown Verified 09/19/22 16:11 trimethoprim [From Bactrim] Allergy Hives Verified 09/19/22 16:11 clarithromycin [From Biaxin] AdvReac Mild Rash Verified 09/19/22 16:11 codeine AdvReac Nausea Verified 09/19/22 16:11 ANALOGUES Allergy Unknown Uncoded 09/19/22 16:11 macrocryst Allergy Unknown Uncoded 09/19/22 16:11 Family History Mother Heart disease Father COPD (chronic obstructive pulmonary disease) Surgical History History of appendectomy History of arthroscopy of left knee History of cholecystectomy History of foot surgery History of gynecologic surgery History of tubal ligation Social History Smoking Status: Light Smoker (<10/day) second hand exposure: Yes counseling given: provider counseling alcohol intake: never substance use type: does not use caffeine: No what type of physical activity do you participate in: walking frequency: daily ROS ROS Narrative Admission Review of Systems: CONSTITUTIONAL: No weight loss, fever, chills, + weakness or fatigue. HEENT: Eyes: No visual loss, blurred vision, double vision or yellow sclerae. Ears, Nose, Throat: No hearing loss, sneezing, congestion, runny nose or sore throat. SKIN: No rash or itching, lesions, wounds. CARDIOVASCULAR: + Pleuritic chest discomfort, No palpitations, edema, orthopnea, syncopal events. RESPIRATORY: + shortness of breath, cough without marked sputum, wheezing, No hemoptysis. GASTROINTESTINAL: + anorexia, nausea, vomiting associated with coughing bouts, No diarrhea, abdominal pain, melena, BRBPR. GENITOURINARY: No dysuria, frequency, urgency or retention. NEUROLOGICAL: No headache, dizziness, syncope, paralysis, ataxia, numbness or tingling in the extremities, focal weakness, change in bowel or bladder control, seizure. MUSCULOSKELETAL: + muscle, back pain, joint pain or stiffness. HEMATOLOGIC: + Easy bleeding or bruising. LYMPHATICS: No enlarged nodes. No history of splenectomy. PSYCHIATRIC: + history of depression or anxiety. ENDOCRINOLOGIC: No reports of sweating, cold or heat intolerance. No polyuria or polydipsia. ALLERGIES: + history of rhinitis. Vital Signs Vital Signs Vital Signs: 10/18/22 21:41 10/18/22 21:49 Temperature 97.8 F Temperature Source Temporal Pulse Rate 98 Respiratory Rate 17 Respiratory Effort Short of Breath Respiratory Depth Normal Respiratory Pattern Normal Blood Pressure 133/78 H Blood Pressure Mean 96 Pulse Ox 94 Oxygen Delivery Method Nasal Cannula Oxygen Flow Rate (L/min) 1 Weight Weight: 89 lb 8.123 oz Body Mass Index (BMI) 16.3 Physical Exam Narrative Physical Examination: General: Awake, alert, oriented x 3 and cooperative, seated upright in the ED bed, fatigued and ill-appearing, holding emesis bag. Skin: Normal color, normal turgor, no icterus, no cyanosis. HEENT: AT/NC, EOMI, PERRLA, dry MM, no carotid bruits or JVD noted. Lungs: Significantly diminished, tight, coughing fits with deep inspiratory effort, no marked sputum productive, no evidence of any distress, no obvious rales or marked rhonchi, occasional expiratory wheeze but again supremely tight. Heart: Currently regular rate and rhythm; no gallop, rub audible. Abdomen: Soft, thin cachectic habitus, NTTP, ND, mildly hyperactive distant BS, no HSM. Extremities: No cyanosis, clubbing, or edema, significant cachectic appearance with muscle wasting/fat loss evident. Neurological: Patient awake, alert, oriented as noted, cognitive function intact; pupils equally reactive to light and accommodation, cranial nerves II- XII grossly normal, moving all 4 extremities, no focal deficits, strength moderately to severely global decreased secondary to acute presentation. Psychiatric: Affect appears flat, ill-appearing, no acute evidence of depressive or anxiety feelings but does have underlying history. Results Lab / Micro Data Result Diagrams: 10/18/22 22:28 10/18/22 22:28 Labs: Laboratory Results - last 24 hr 10/18/22 22:28: WBC 11.1 H, RBC 5.25, Hgb 15.4 H, Hct 45.5, MCV 86.7, MCH 29.3, MCHC 33.8, RDW Std Deviation 45.4 H, RDW Coeff of Jazmín 14.1, Plt Count 273, MPV 11.5, Immature Gran % (Auto) 0.500, Neut % (Auto) 79.8 H, Lymph % (Auto) 8.4 L, [place] % (Auto) 11.2 H, Eos % (Auto) 0.0, Baso % (Auto) 0.1, Absolute Neuts (auto) 8.9 H, Absolute Lymphs (auto) 0.94, Nucleated RBC % 0 10/18/22 22:28: Sodium 130 L, Potassium 4.6, Chloride 94 L, Carbon Dioxide 19.0 L, Anion Gap 17 H, BUN 111 H*, Creatinine 4.03 H, Estim Creat Clear Calc 6.78, Est GFR (MDRD) Af Amer 14 L, Est GFR (MDRD) Non-Af 11 L, BUN/Creatinine Ratio 27.5 H, Glucose 136 H, Calcium 9.1, Total Bilirubin 0.70, AST 20, ALT 21, Alkaline Phosphatase 78, Troponin I High Sens 16, Total Protein 7.9, Albumin 3.7, Globulin 4.2, Albumin/Globulin Ratio 0.9, Lipase 124 10/18/22 22:28: B-Natriuretic Peptide 38.0 Micro: Microbiology 10/18/22 22:17 Nasal Secretion SARS-CoV-2 & FLU Antigen (Rapid) - Final SARS-CoV-2 (COVID 19) Radiology Impression Chest X-Ray 10/18/22 22:50 IMPRESSION: COPD and mild basilar atelectatic changes. Electronically Signed: Mainor Shrestha MD at 23:17 EST , Assessment & Plan Assessment/Plan (1) COVID-19: PLAN: Plan The patient is an 82 y/o F w/ PMHx: Severe protein-calorie malnutrition, Tobacco use, PVD, Hypothyroidism, GERD, Anxiety and Depression, COPD w/ Chronic Hypoxic Respiratory Failure (2L NC) following w/ Pulmonary Dr. Wellington, HTN, HLD, Hx Cervical CA s/p chemotherapy and radiation, Hx prior SBO who presents to the [facility] ED on 10/18/22 with history of onset progressively worsening dyspnea over the last 2 to 3 days with cough changed from her prior chronic with intense bouts causing nausea and emesis with concurrent occasional loose stool but no associated abdominal pain. #1. Acute on Chronic COPD exacerbation w/ Chronic hypoxic respiratory failure (2 L NC) secondary to Acute Viral Syndrome, COVID-19 Nonvaccinated status complicated by #2, #3: Will admit to MS, maintain on COVID precautions, will maintain on oxygen with wean as tolerated to home supplementation level, PRN albuterol, ATC DuoNeb therapy, HOB, IS parameters w/ pending sputum cultures, respiratory viral panel and urine antigens, will obtain D-dimer, procalcitonin, CRP, CPK, Ferritin, LDH, continue supportive care including q 2 hour turning including prone given no prone bed availability and judicious hydration, closely monitor for worsening status for ARDS and multiorgan failure, will initiate and continue IV decadron x 10 doses with close monitoring given reported prior lip swelling w/ prednisone therapy, given presentation with notable renal dysfunction patient is not a candidate for antiviral regimen. #2. Acute kidney injury: Likely related with acute presentation #1 in large part but distant renal function baseline, admission BUN/Cr levels 111/4.03, prior baseline creatinine noted to be 0.8 primarily however last noted 09/11/2020. Will judiciously hydrate, hold nephrotoxic medications and repeat chemistry in AM, will obtain UFeNa, UA, renal US and request nephrology consultation given severity of change. #3. Metabolic derangements with elevated anion gap, acidosis: Admission with anion gap mildly elevated 17, notable renal failure concurrently associated as noted #2, glucose is mildly elevated 136, to be cautious and assure not missing other derangements will obtain hemoglobin A1c as well as acetone, UA, osmolality. ABG requested. Nephrology consulted as noted. #2. Chart reported history hypothyroidism: Per current list on a regimen, TSH and free T4 requested to be cautious. #3. Hypertension: Given ALLEN holding hydrochlorothiazide, PRN hydralazine. #4. Hyperlipidemia: Per current list on a regimen, defer to outpatient. #5. Severe protein calorie malnutrition: Evidenced by significantly reduced BMI, obvious muscle and fat loss, nutrition consulted. #6. Tobacco Abuse: Encouraged cessation, inpatient consultation per RT, NR if desired. #7. History cervical cancer: Patient status post chemotherapy and radiation as well as intervention per report, considered in remission. #8. Anxiety and depression: Noted in history, not on regimen, encourage sierra nued outpatient follow-up and further evaluation by PCP. #9. GERD: Not on regimen, will have as needed Mylanta. #10. DVT prophylaxis: SCDs, heparin. #11. CODE status: Patient HCPOA is Kaley Nava her niece and living will is currently in place. Discussed CODE status at length including difference between FULL code, DNR-CCA and DNR-CC status. Following discussions about the differences in these status, requested DNR-CCA, no intubation however amenable to medical treatment otherwise. Advanced Care Planning Face to Face Time: 16 minutes. Charges/Coding Visit Charges Inpatient E&M: 20876 Init Hosp L3 Procedures Hospitalists Procedures: 26084 Advncd Care Plan 30 Min
--- NOTE | 2022-10-18 23:50 | ED.RN ---
karla updated with patient permission
[2022-10-18 23:54] VITALS: BP 134/85; PULSE 76; RESP 17; TEMP 36.8; O2SAT 95; O2SAT 97
[2022-10-19] VITALS (19 sets, daily range): BP systolic 114–142; BP diastolic 47–59; PULSE 79–98; RESP 18–22; TEMP 36.1–36.9; O2SAT 93–100; BMI 14.5
[2022-10-19 00:16] LABS: Ferritin 1620 ng/mL (8-252); LDH 219 U/L (84-246)
[2022-10-19] MEDS: MethylPREDNISolone 125 MG/2 ML Vial 60 MG IV (00:18)
[2022-10-19 00:57] LABS: Procalcitonin 0.17 ng/mL (0.00-0.09)
[2022-10-19 01:03] LABS: D-Dimer Quantitative (DVT/PE) 1.51 FEU/ug/m (0.27-0.49)
[2022-10-19] MEDS: MELATONIN 3 MG TABLET PO (01:36)
[2022-10-19] MEDS: 0.9% Normal Saline 1,000 ML 100 ML IV ×3 (01:36→20:08)
[2022-10-19 01:37] LABS: Osmolality, Serum 325 mOsm/KG (280-301)
[2022-10-19] MEDS: Ipratropium/Albuterol Sulfate 3 ML AMPUL.NEB INHALATION ×5 (02:50→20:14)
[2022-10-19 03:40] LABS: Allen Test Negative; Base Excess -11 mmol/L (-2 to +2); Bicarbonate 15.7 mmol/L (22-26); Blood Gas Specimen Type ART; O2 Delivery Device Cannula; PO2 79 mmHG (75-100); SITE L Radial; SO2 95 % (95-99); Total Carbon Dioxide 17 mmol/L; pCO2 31.4 mmHg (35-45); pH 7.31 (7.35-7.45)
[2022-10-19 06:23] LABS: Absolute Lymphocyte Count 0.58 X10^3/uL (0.83-4.51); Absolute Neutrophil Count 10.5 X10^3/uL (2.0-7.7); Basophil# 0.01 X10^3/uL; Basophil% 0.1 % (0-1); Hematocrit 39.8 % (37-47); Lymphocyte # 0.58 X10^3/ul (0.83-4.51); Lymphocyte % 5.1 % (19-41); Mean Corp Hgb Conc 32.7 g/dL (32-36); Mean Corpuscular Hgb 28.1 pg (27.0-32.0); Mean Corpuscular Volume 86.1 fL (81-99); Monocyte# 0.31 X10^3/uL; Monocyte% 2.7 % (0-10); NRBC Flagged by Analyzer 0 % (0-5); Neutrophil # 10.48 X10^3/uL (2.7-7.7); Neutrophil % 91.5 % (47-70); POSITIVE DIFFERENTIAL YES; Platelet Count 231 K/mm3 (150-450); RBC Distribution Width CV 14.1 % (11.6-14.6); RBC Distribution Width SD 44.2 fl (35.1-43.9); Red Blood Count 4.62 M/mm3 (4.2-5.4); White Blood Count 11.5 K/mm3 (4.4-11.0)
[2022-10-19 06:34] LABS: Differential Indicated SCAN CRITERIA MET
[2022-10-19 06:39] LABS: Mucous, Urine 0 SEEN /hpf (<or=2+)
[2022-10-19 06:45] LABS: Color, Urine Yellow (Yellow); Glucose, Dipstick Normal (Normal); Ketone-Dipstick 5 mg/dl (Negative); Leukocyte Esterase-Dipstick 500 /ul (Negative); Nitrite-Dipstick Negative (Negative); Occult Blood-Urine 25 /ul (Negative); Protein-Dipstick 30 mg/dl (Negative); Urine Clarity Clear (Clear); Urine Urobilinogen Normal (Normal)
[2022-10-19 07:00] LABS: Urine Bilirubin Dipstick 1 mg/dL (Negative)
[2022-10-19 07:01] LABS: Bacteria 4+ /hpf (None Seen); Red Blood Cells-Urine 0-5 SEEN /hpf (0-5); Squamous Epithelial Cells - UA 0-5 SEEN /hpf (5-10); White Blood Cells 5-10 SEEN /hpf (0-5)
[2022-10-19 07:08] LABS: Urine Sodium 18 mmol/L (Not Establ.)
[2022-10-19 07:41] LABS: ALB/GLOB Ratio 0.8 RATIO (0.9-2.4); AST(SGOT) 12 U/L (15-37); Alanine Aminotransfer ALT/SGPT 19 U/L (13-56); Alkaline Phosphatase 68 U/L (45-117); Anion Gap 18 (5-15); BUN 107 mg/dL (7-18); BUN/Creat Ratio 35.1 RATIO (10-20); Calcium,Total 8.4 mg/dL (8.5-10.1); Chloride 100 mmol/L (98-107); Creatinine, Serum 3.05 mg/dL (0.55-1.02); EST Glomerular Filtration Rate 16 mL/min (>60); Est Glom Filt Rate - Afr Amer 19 mL/min (>60); Estimated Creatinine Clearance 8.47 ml/min; Globulin 3.8 g/dL (2.2-4.2); Glucose 127 mg/dL (74-106); Potassium 3.9 mmol/L (3.5-5.1); Protein, Total 6.8 g/dL (6.4-8.2); Sodium Level 132 mmol/L (136-145); T4 Free Direct 1.23 ng/dL (0.76-1.46); Thyroid Stim Hormone (TSH) 0.77 uIU/mL (0.358-3.74)
--- NOTE | 2022-10-19 08:07 | PN.HOSP_ITS ---
Subjective Subjective Patient is an 82-year-old lady with history of COPD on baseline home oxygen presented with progressive shortness of breath, nausea and vomiting. Diagnosed with COPD with acute exacerbation/COVID-19 infection. Objective Data Objective Data Vital Signs: Vital Signs Temp Pulse Resp BP Pulse Ox O2 Del Method O2 Flow Rate 97.1 F L 90 18 126/49 H 96 Nasal Cannula 2 10/19/22 06:08 10/19/22 07:35 10/19/22 07:35 10/19/22 06:08 10/19/22 07:35 10/19/22 07:35 10/19/22 07:35 Oxygen Flow Rate (L/min) 2 Oxygen Delivery Method Nasal Cannula Weight: 38.4 kg Body Mass Index (BMI) 14.5 Intake & Output: Intake and Output for Last 24 Hours 10/17/22 10/18/22 10/19/22 23:59 23:59 23:59 Intake Total 375 / 375 Output Total 200 / 200 Balance 175 / 175 Lab / Micro Data Result Diagrams: 10/19/22 05:15 10/19/22 05:15 Labs: Laboratory Results - last 24 hr 10/18/22 22:28: WBC 11.1 H, RBC 5.25, Hgb 15.4 H, Hct 45.5, MCV 86.7, MCH 29.3, MCHC 33.8, RDW Std Deviation 45.4 H, RDW Coeff of Jazmín 14.1, Plt Count 273, MPV 11.5, Immature Gran % (Auto) 0.500, Neut % (Auto) 79.8 H, Lymph % (Auto) 8.4 L, [place] % (Auto) 11.2 H, Eos % (Auto) 0.0, Baso % (Auto) 0.1, Absolute Neuts (auto) 8.9 H, Absolute Lymphs (auto) 0.94, Nucleated RBC % 0 10/18/22 22:28: Sodium 130 L, Potassium 4.6, Chloride 94 L, Carbon Dioxide 19.0 L, Anion Gap 17 H, BUN 111 H*, Creatinine 4.03 H, Estim Creat Clear Calc 6.78, Est GFR (MDRD) Af Amer 14 L, Est GFR (MDRD) Non-Af 11 L, BUN/Creatinine Ratio 27.5 H, Glucose 136 H, Calcium 9.1, Total Bilirubin 0.70, AST 20, ALT 21, Alkaline Phosphatase 78, Troponin I High Sens 16, Total Protein 7.9, Albumin 3.7, Globulin 4.2, Albumin/Globulin Ratio 0.9, Lipase 124 10/18/22 22:28: B-Natriuretic Peptide 38.0 10/18/22 22:28: Ferritin 1620 H, Lactate Dehydrogenase 219, C-React Prot Ext Ra nge 43.70 H 10/18/22 22:28: Serum Osmolality 325 H, Acetone Level SMALL H 10/19/22 00:05: D-Dimer Quant (PE/DVT) 1.51 H* 10/19/22 00:05: Procalcitonin 0.17 H 10/19/22 05:15: WBC 11.5 H, RBC 4.62, Hgb 13.0, Hct 39.8, MCV 86.1, MCH 28.1, MCHC 32.7, RDW Std Deviation 44.2 H, RDW Coeff of Jazmín 14.1, Plt Count 231, MPV 12.0, Immature Gran % (Auto) 0.600, Neut % (Auto) 91.5 H, Lymph % (Auto) 5.1 L, [place] % (Auto) 2.7, Eos % (Auto) 0.0, Baso % (Auto) 0.1, Absolute Neuts (auto) 10.5 H, Absolute Lymphs (auto) 0.58 L, Nucleated RBC % 0 10/19/22 05:15: Sodium 132 L, Potassium 3.9, Chloride 100, Carbon Dioxide 14.0 L , Anion Gap 18 H, BUN 107 H*, Creatinine 3.05 H, Estim Creat Clear Calc 8.47, Est GFR (MDRD) Af Amer 19 L, Est GFR (MDRD) Non-Af 16 L, BUN/Creatinine Ratio 35.1 H, Glucose 127 H, Calcium 8.4 L, Total Bilirubin 0.50, AST 12 L, ALT 19, Alkaline Phosphatase 68, Total Protein 6.8, Albumin 3.0 L, Globulin 3.8, Albumin/Globulin Ratio 0.8 L, TSH 0.77, Free T4 1.23 10/19/22 06:30: Urine Color Yellow, Urine Clarity Clear, Urine pH 5.0, Ur Specific [place] 1.020, Urine Protein 30 H, Urine Glucose (UA) Normal, Urine Ketones 5 H, Urine Occult Blood 25 H, Urine Nitrite Negative, Urine Bilirubin 1 H, Urine Urobilinogen Normal, Ur Leukocyte Esterase 500 H, Urine RBC 0-5 SEEN, Urine WBC 5-10 SEEN, Ur Squamous Epith Cells 0-5 SEEN, Urine Bacteria 4+, Urine Mucus 0 SEEN 10/19/22 06:30: Ur Random Sodium 18, Urine Creatinine 116.00 Micro: Microbiology 10/19/22 06:30 Urine, Clean Catch Legionella Antigen - Final 10/19/22 06:30 Urine, Clean Catch Streptococcus pneumoniae Antigen (M - Final Streptococcus pneumonia Ag 10/18/22 22:17 Nasal Secretion SARS-CoV-2 & FLU Antigen (Rapid) - Final SARS-CoV-2 (COVID 19) ABG Data ABG results: ABG 10/19/22 03:35 Specimen Type ART Sample Site L Radial pH 7.31 L Bicarbonate Actual 15.7 L Total CO2 17 Base Excess -11 L O2 Saturation 95 ABG pCO2 31.4 L ABG pO2 79 [place]ell Test Negative O2 Delivery Device Cannula Liter Flow 2.0 Radiography Diagnostic Testing: Radiology Impression Chest X-Ray 10/18/22 22:50 IMPRESSION: COPD and mild basilar atelectatic changes. Electronically Signed: Mainor Shrestha MD at 23:17 EST , Rhythm Strip Rhythm Strip: Sinus Rhythm Rate: 87 Ectopy: None Physical Exam Narrative GENERAL: cooperative, cachectic HEENT: Atraumatic; normocephalic EYES; Anicteric, Normal Conjunctiva NECK; supple, normal thyroid, RESPIRATORY: Diminished to auscultation CARDIOVASCULAR: Regular S1 S2, GI: soft, normoactive bowel sounds, : No Renal angle tenderness; EXTREMITIES: No edema, no clubbing, MUSCULOSKELETAL: no muscle wasting NEURO: Awake; no lateralizing signs. SKIN: No Rash PSYCH; Flat affect Assessment & Plan Assessment/Plan (1) COVID-19: PLAN: Plan Patient is an 82-year-old lady with history of COPD on baseline home oxygen presented with progressive shortness of breath, nausea and vomiting. Diagnosed with COPD with acute exacerbation/COVID-19 infection. 1. COPD with acute exacerbation ? Admitted to regular nursing floor managed with systemic steroid antibiotics as well as supplemental oxygen titrated to keep saturation greater than 90. Patient urine cultures came back positive for strep pneumo antigen Rocephin added to patient therapy 2. SARS-CoV-2 infection ? Patient placed in isolation not a candidate for remdesivir given her impaired kidney function subsequently treated symptomatically 3. Elevated D-dimer ? Ordered bilateral venous duplex as well as VQ scan of the chest to rule out VTE 4. Acute kidney injury secondary to gastroenteritis from patient COVID 19 infection Patient baseline creatinine from 09/11/2020 was 0.8, creatinine on admission was 4.03 started on IV fluid with monitoring of electrolytes ordered. As part of her management renal ultrasound was also ordered 5. Acute cystitis ? Patient started on Rocephin, urine culture sent 6. Metabolic acidosis ? Secondary to patient ALLEN do expect improvement with improvement in kidney function 7. Chronic hypoxic respiratory failure -secondary to COPD on baseline home O2 8. History cervical cancer - status post chemotherapy and radiation as well as intervention per report, considered in remission. 9. Severe protein calorie malnutrition ? As evidenced by low BMI of 40.5 low calorie intake. This is secondary to patient underlying chronic lung disease consult placed to dietitian 10. Tobacco dependence - Counseled on cessation, offered nicotine patch for tobacco cravings 11. Essential hypertension ? Patient is on HCTZ held in view of impaired kidney function 12. DVT prophylaxis ? SC heparin Charges/Coding Visit Charges Inpatient E&M: 68376 Subs Hosp L3
--- NOTE | 2022-10-19 08:20 | NM_ITS ---
CLINICAL: 82-year-old female with history of shortness of breath. 99m Tc MAA PERFUSION LUNG SCINTIGRAPHY COMPARISON: [Plain film chest radiograph report 10/18/2022 FINDINGS: The ventilation study was not performed. Following the intravenous administration of 5.9 mCi of 99m Tc MAA the pulmonary perfusion study reveals mild non-uniform perfusion in the right and left lung whiteside without moderate subsegmental or large segmental wedge shaped, peripheral perfusion defects identified. NM/Quant Lung Perfusion Scan IMPRESSION: 1. LOW PROBABILITY FOR PULMONARY EMBOLUS (R 12%) 99m Tc MAA pulmonary perfusion imaging examination, according to PISA-PED (Prospective Investigative Study of Pulmonary Embolism Diagnosis) interpretive criteria with regard given to the presence of minimally heterogeneous perfusion without significant peripheral perfusion abnormalities. (Elli et al, Am J Respir Crit Care Med 154: 1387, 1996). Electronically Signed: Deondre Angel, at 13:32 EST ,
[2022-10-19 08:36] LABS: Osmolality, Urine 389 mOsm/KG
--- NOTE | 2022-10-19 09:08 | VDLE_ITS ---
Reason For Study: Elevated D-Dimer RIGHT LEFT GSV is normal. GSV is normal. CFV is compressible, spontaneous, phasic, CFV is compressible, spontaneous, phasic, competent and demonstrates normal competent, and demonstrates normal augmentation. augmentation. FV is compressible, spontaneous, phasic, FV is compressible, spontaneous, phasic, competent and demonstrates normal competent and demonstrates normal augmentation. augmentation. POP V is compressible, spontaneous, phasic, POP V is compressible, spontaneous, phasic, competent and demonstrates normal competent and demonstrates normal augmentation. augmentation. T/P Trunk is compressible. T/P Trunk is compressible. PTV is compressible. PTV is compressible. RT PerV is compressible. LT PerV is compressible. Procedure This is a venous duplex using B-mode, color flow and spectral Doppler. Exam performed portable in patient room. The exam was abbreviated due to the COVID 19 protocol. The exam was diagnostic. The study was technically difficult. A preliminary report was called and/or faxed to M/S Charge Nurse. VL/Venous Duplex US - Jesse Extrem Interpretation Summary Deep veins of the bilateral lower extremities are patent and compressible segme ntally. There is no evidence of bilateral lower extremity deep vein thrombosis. The bilateral great saphenous veins appear patent and compressible segmentally. Ordering Physician: Mindy Flores Referring Physician: Dory Johnson M.D. Performed By: Alvaro Roman RVT
[2022-10-19 09:40] LABS: Hemoglobin A1c 5.4 % (3.8-5.6)
[2022-10-19] MEDS: dexAMETHasone 10 MG/ML Vial 6 MG IV (10:08)
[2022-10-19] MEDS: Ceftriaxone 1 GM/50 ML BAG IV (10:09)
[2022-10-19] MEDS: Heparin Injection (Vial) 5,000 UNIT/ML VIAL 5000 UNIT SC ×2 (10:09→22:08)
--- NOTE | 2022-10-19 16:47 | CON.PCM.RE_ITS ---
Assessment & Plan Assessment/Plan (1) Acute renal failure (ARF): PLAN: It appears to be prerenal azotemia as her Cr has been improving rather fast with restorationist of circulating volume. Will continue with IV fluids as she looks dehydrated to me. 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 Avoid nephrotoxins (2) Acute dehydration: PLAN: C/W IV fluids HPI Consult Data Date of Consult: 10/19/22 HPI Narrative Reason for Consultation: ALLEN. HPI Narrative: RUCHI MAGALLON, is a 82 F who presents acute CoVid infection manifesting by failure to thrive, weakness, nausea, decreased appetite, pneumonia. She has normal underlying renal fx with Cr below 1 just 2 years ago. she was found to have Cr of 4 on admission. She has received IV fluids, ATB and other supportive measures and rapidly responded with brisk UO and Cr decline to 3. Has no edema, on NC oxygen, not particularly acidotic and has no hyperkalemia. Denies diarrhea or intake on NSAIDS PFSH Medical History Allergic rhinitis Anxiety Chronic respiratory failure with hypoxia COPD (chronic obstructive pulmonary disease) Diverticulosis of colon GERD (gastroesophageal reflux disease) Hypothyroidism Low HDL (under 40) Nephrolithiasis Osteoporosis PVD (peripheral vascular disease) Severe protein-calorie malnutrition Tobacco use Home Medications hydrochlorothiazide 25 mg tablet 12.5 mg PO DAILY blood pressure 08/03/17 [History Last Taken 01/01/19 12.5 MG] albuterol sulfate 90 mcg/actuation aerosol inhaler 1 - 2 puff inhalation Q4H PRN PRN dyspnea, wheezing ##1 08/06/17 [Rx Last Taken 01/01/19 1 - 2 PUFF] albuterol sulfate 2.5 mg/3 mL (0.083 %) solution for nebulization 2.5 mg (3 mL) inhalation Q4H PRN Sob &/Or Wheezing #180 mL 06/10/21 [Rx Last Taken Unknown] budesonide-formoterol HFA 80 mcg-4.5 mcg/actuation aerosol inhaler (Symbicort) 1 puff inhalation BID shortnes of breath 10/19/22 [History Last Taken Unknown] tiotropium bromide 1.25 mcg/actuation mist for inhalation (Spiriva Respimat) 1 puff inhalation DAILY breathing 10/19/22 [History Last Taken Unknown] Allergy/AdvReac Type Severity Reaction Status Date / Time prednisone Allergy Severe Lips Verified 09/19/22 16:11 swelling amoxicillin [From Augmentin] Allergy Unknown Verified 09/19/22 16:11 ciprofloxacin Allergy Unknown Verified 09/19/22 16:11 clavulanic acid Allergy Unknown Verified 09/19/22 16:11 [From Augmentin] dextromethorphan Allergy Hives Verified 09/19/22 16:11 guaifenesin Allergy Hives Verified 09/19/22 16:11 levofloxacin [From Levaquin] Allergy Anaphylaxis Verified 09/19/22 16:11 niacin Allergy Pain in Verified 09/19/22 16:11 joints nitrofurantoin Allergy Unknown Verified 09/19/22 16:11 propoxyphene Allergy Unknown Verified 09/19/22 16:11 Sulfa (Sulfonamide Allergy Hives Verified 09/19/22 16:11 Antibiotics) sulfamethoxazole Allergy Hives Verified 09/19/22 16:11 [From Bactrim] tetracycline Allergy Unknown Verified 09/19/22 16:11 trimethoprim [From Bactrim] Allergy Hives Verified 09/19/22 16:11 clarithromycin [From Biaxin] AdvReac Mild Rash Verified 09/19/22 16:11 codeine AdvReac Nausea Verified 09/19/22 16:11 ANALOGUES Allergy Unknown Uncoded 09/19/22 16:11 macrocryst Allergy Unknown Uncoded 09/19/22 16:11 Family History Mother Heart disease Father COPD (chronic obstructive pulmonary disease) Surgical History History of appendectomy History of arthroscopy of left knee History of cholecystectomy History of foot surgery History of gynecologic surgery History of tubal ligation Social History Smoking Status: Light Smoker (<10/day) second hand exposure: Yes counseling given: provider counseling alcohol intake: never substance use type: does not use caffeine: No what type of physical activity do you participate in: walking frequency: daily ROS Constitutional Constitutional: Reports malaise, weakness and weight loss ENT HEENT: Reports dry mouth Cardiovascular Cardiovascular: Denies chest pain, claudication, diaphoresis, dyspnea on exertion, edema, irregular heart rhythm, leg edema, orthopnea, palpitations or syncope Respiratory/Chest Respiratory/Chest: Reports dry cough, dyspnea on exertion and shortness of breath at rest Gastrointestinal Gastrointestinal: Denies abdominal pain, anorexia, diarrhea, dry heaves, hematemesis, hematochezia, melena, nausea, rectal bleeding, vomiting or weight changes Genitourinary Genitourinary: Reports change in urinary stream, difficulty urinating and dysuria Musculoskeletal Musculoskeletal: Reports abnormal gait Integumentary Integumentary: Denies dry skin, erythema, jaundice, lesions, pruritus, rash or skin ulcer Physical Exam Narrative Elderly cachectic female in NAD Const alert, oriented x3 and no apparent distress General Appearance: frail Orientation / Consciousness: oriented to person, oriented to place and oriented to time Nutritional Appearance: cachectic HEENT normocephalic Head and Scalp: atraumatic Eyes PERRL Neck no lymphadenopathy Resp no use of accessory muscles Auscultation: rhonchi and diminished lung sounds Cardio regular rate and no murmurs GI non-tender and non-distended Auscultation: normoactive bowel sounds Palpation: soft and no hepatosplenomegaly no CVA tenderness Neuro Sensorium / Orientation: awake and alert Motor Exam: muscle tone normal throughout Psych cooperative Medical Records Data Medical Nutrition Assessment Dietitian: Malnutrition Criteria Met Start: 10/19/22 11:13 Freq: Status: Active Protocol: Document 10/19/22 11:13 MARK (Rec: 10/19/22 11:13 MARK [id number]) Nutrition Malnutrition Evidence of Malnutrition Exists Yes Malnutrition (severe): Chronic Evidenced By Suboptimal Energy Intake ( Severe),Weight Loss (Severe) Clinical Problem Altered Nutrient-Related Laboratory Values Etiology related to ALLEN Signs/Symptoms as evidenced by BUN 107, Cr 3. 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 May need to consider more aggressive nutrition support if po intake fails to improve and/or wt loss continues IF in accordance w/ pt/family wishes. Lab / Micro Data Attestation: I reviewed the patient's lab results. Result Diagrams: 10/19/22 05:15 10/19/22 05:15 Labs: Laboratory Results - last 24 hr 10/18/22 22:28: WBC 11.1 H, RBC 5.25, Hgb 15.4 H, Hct 45.5, MCV 86.7, MCH 29.3, MCHC 33.8, RDW Std Deviation 45.4 H, RDW Coeff of Jazmín 14.1, Plt Count 273, MPV 11.5, Immature Gran % (Auto) 0.500, Neut % (Auto) 79.8 H, Lymph % (Auto) 8.4 L, [place] % (Auto) 11.2 H, Eos % (Auto) 0.0, Baso % (Auto) 0.1, Absolute Neuts (auto) 8.9 H, Absolute Lymphs (auto) 0.94, Nucleated RBC % 0 10/18/22 22:28: Sodium 130 L, Potassium 4.6, Chloride 94 L, Carbon Dioxide 19.0 L, Anion Gap 17 H, BUN 111 H*, Creatinine 4.03 H, Estim Creat Clear Calc 6.78, Est GFR (MDRD) Af Amer 14 L, Est GFR (MDRD) Non-Af 11 L, BUN/Creatinine Ratio 27.5 H, Glucose 136 H, Calcium 9.1, Total Bilirubin 0.70, AST 20, ALT 21, Alkaline Phosphatase 78, Troponin I High Sens 16, Total Protein 7.9, Albumin 3.7, Globulin 4.2, Albumin/Globulin Ratio 0.9, Lipase 124 10/18/22 22:28: B-Natriuretic Peptide 38.0 10/18/22 22:28: Ferritin 1620 H, Lactate Dehydrogenase 219, C-React Prot Ext Range 43.70 H 10/18/22 22:28: Serum Osmolality 325 H, Acetone Level SMALL H 10/19/22 00:05: D-Dimer Quant (PE/DVT) 1.51 H* 10/19/22 00:05: Procalcitonin 0.17 H 10/19/22 05:15: WBC 11.5 H, RBC 4.62, Hgb 13.0, Hct 39.8, MCV 86.1, MCH 28.1, MCHC 32.7, RDW Std Deviation 44.2 H, RDW Coeff of Jazmín 14.1, Plt Count 231, MPV 12.0, Immature Gran % (Auto) 0.600, Neut % (Auto) 91.5 H, Lymph % (Auto) 5.1 L, [place] % (Auto) 2.7, Eos % (Auto) 0.0, Baso % (Auto) 0.1, Absolute Neuts (auto) 10.5 H, Absolute Lymphs (auto) 0.58 L, Nucleated RBC % 0 10/19/22 05:15: Sodium 132 L, Potassium 3.9, Chloride 100, Carbon Dioxide 14.0 L , Anion Gap 18 H, BUN 107 H*, Creatinine 3.05 H, Estim Creat Clear Calc 8.47, Est GFR (MDRD) Af Amer 19 L, Est GFR (MDRD) Non-Af 16 L, BUN/Creatinine Ratio 35.1 H, Glucose 127 H, Calcium 8.4 L, Total Bilirubin 0.50, AST 12 L, ALT 19, Alkaline Phosphatase 68, Total Protein 6.8, Albumin 3.0 L, Globulin 3.8, Albumin/Globulin Ratio 0.8 L, TSH 0.77, Free T4 1.23 10/19/22 05:15: Hemoglobin A1c 5.4 10/19/22 06:30: Urine Color Yellow, Urine Clarity Clear, Urine pH 5.0, Ur Spe cific [place] 1.020, Urine Protein 30 H, Urine Glucose (UA) Normal, Urine Ketones 5 H, Urine Occult Blood 25 H, Urine Nitrite Negative, Urine Bilirubin 1 H, Urine Urobilinogen Normal, Ur Leukocyte Esterase 500 H, Urine RBC 0-5 SEEN, Urine WBC 5-10 SEEN, Ur Squamous Epith Cells 0-5 SEEN, Urine Bacteria 4+, Urine Mucus 0 SEEN 10/19/22 06:30: Urine Osmolality 389, Ur Random Sodium 18, Urine Creatinine 116.00 Micro: Microbiology 10/19/22 02:40 Mucosa - Nasopharyngeal Respiratory Panel (PCR) - Final 10/19/22 06:30 Urine, Clean Catch Legionella Antigen - Final 10/19/22 06:30 Urine, Clean Catch Streptococcus pneumoniae Antigen (M - Final Streptococcus pneumonia Ag 10/18/22 22:17 Nasal Secretion SARS-CoV-2 & FLU Antigen (Rapid) - Final SARS-CoV-2 (COVID 19) ABG Data ABG results: ABG 10/19/22 03:35 Specimen Type ART Sample Site L Radial pH 7.31 L Bicarbonate Actual 15.7 L Total CO2 17 Base Excess -11 L O2 Saturation 95 ABG pCO2 31.4 L ABG pO2 79 [place] Test Negative O2 Delivery Device Cannula Liter Flow 2.0 Rhythm Strip Rhythm Strip: Sinus Rhythm Rate: 87 Ectopy: None Radiology Impression Chest X-Ray 10/18/22 22:50 IMPRESSION: COPD and mild basilar atelectatic changes. Electronically Signed: Mainor Shrestha MD at 23:17 EST ,
[2022-10-20] VITALS (12 sets, daily range): BP systolic 102–119; BP diastolic 43–54; PULSE 67–88; RESP 15–24; TEMP 36.1–36.6; O2SAT 3–96
[2022-10-20] MEDS: 0.9% Normal Saline 1,000 ML 100 ML IV (05:32)
--- NOTE | 2022-10-20 05:55 | US_ITS ---
STUDY: RENAL ULTRASOUND - COMPLETE REASON FOR EXAM: Female, 82 years old. ALLEN TECHNIQUE: Ultrasound evaluation of the kidneys was performed with real-time and static costello-scale imaging. COMPARISON: None. FINDINGS: RIGHT KIDNEY: Normal location of the right kidney, which is normal in size. The right kidney measures 11.2 cm. There is a normal cortex of the right kidney. The renal cortex measures 1.2 cm. There is no right renal mass or cyst. There are no right renal calculi. There is moderate hydronephrosis of the right kidney. DISTAL RIGHT URETER: There is non-visualization of the distal right ureter. There is no demonstrated right ureterovesical junction calculus. There is no demonstrated right ureteral jet. LEFT KIDNEY: Normal location of the left kidney, which is normal in size. The left kidney measures 9.7 cm. There is a normal cortex of the left kidney. The renal cortex measures 1.5 cm. There is 0.8 cm cyst. There are no left renal calculi. There is no left hydronephrosis. DISTAL LEFT URETER: There is non-visualization of the distal left ureter. There is no demonstrated left ureterovesical junction calculus. There is a visualized left ureteral jet. BLADDER: The distended urinary bladder has a volume of 545 ml. There is a normal wall thickness of the distended urinary bladder. There is no demonstrated mass within the urinary bladder. There are no demonstrated bladder calculi. US/Kidney and Bladder IMPRESSION: Moderate bilateral hydronephrosis. Electronically Signed: Qasim Haro MD at 18:13 EST ,
[2022-10-20 07:09] LABS: Anion Gap 7 (5-15); BUN 71 mg/dL (7-18); Calcium,Total 8.6 mg/dL (8.5-10.1); Chloride 109 mmol/L (98-107); Creatinine, Serum 1.34 mg/dL (0.55-1.02); EST Glomerular Filtration Rate 40 mL/min (>60); Est Glom Filt Rate - Afr Amer 49 mL/min (>60); Estimated Creatinine Clearance 20.79 ml/min; Glucose 111 mg/dL (74-106); Magnesium 2.2 mg/dL (1.6-2.6); Phosphorus 2.1 mg/dL (2.5-4.9); Potassium 3.9 mmol/L (3.5-5.1); Sodium Level 135 mmol/L (136-145)
[2022-10-20 07:17] LABS: Absolute Lymphocyte Count 0.83 X10^3/uL (0.83-4.51); Absolute Neutrophil Count 12.9 X10^3/uL (2.0-7.7); Basophil# 0.01 X10^3/uL; Basophil% 0.1 % (0-1); Hematocrit 36.2 % (37-47); Hemoglobin 12.3 g/dL (12.0-15.0); Lymphocyte # 0.83 X10^3/ul (0.83-4.51); Lymphocyte % 5.3 % (19-41); Mean Corpuscular Hgb 29.2 pg (27.0-32.0); Mean Platelet Vol. 11.3 fl (6.2-12.0); Monocyte# 1.72 X10^3/uL; Monocyte% 11.1 % (0-10); NRBC Flagged by Analyzer 0 % (0-5); Neutrophil # 12.89 X10^3/uL (2.7-7.7); POSITIVE DIFFERENTIAL YES; Platelet Count 195 K/mm3 (150-450); RBC Distribution Width CV 14.3 % (11.6-14.6); Red Blood Count 4.21 M/mm3 (4.2-5.4); White Blood Count 15.5 K/mm3 (4.4-11.0)
[2022-10-20] MEDS: Ipratropium/Albuterol Sulfate 3 ML AMPUL.NEB INHALATION ×3 (07:26→19:20)
[2022-10-20 07:31] LABS: Differential Indicated SCAN CRITERIA MET
--- NOTE | 2022-10-20 07:41 | EKG12_ITS ---
Test Reason : ABNORMAL RHYTHMN Blood Pressure : / mmHG Vent. Rate : 083 BPM Atrial Rate : 083 BPM P-R Int : 130 ms QRS Dur : 086 ms QT Int : 358 ms P-R-T Axes : 076 063 022 degrees QTc Int : 420 ms Sinus rhythm with frequent Premature ventricular complexes Otherwise normal ECG Confirmed by LILLIAN MENDES, LINDSAY ([id number]), material expeditor YARA CASTANEDA ([id number]) on 10/22/2022 8:18:07 AM Referred By: CARMINA Confirmed By:LINDSAY SNYDER MD
[2022-10-20 08:57] LABS: Differential Comment SCANNED
[2022-10-20] MEDS: Ceftriaxone 1 GM/50 ML BAG IV (09:39)
[2022-10-20] MEDS: Heparin Injection (Vial) 5,000 UNIT/ML VIAL 5000 UNIT SC ×2 (09:43→20:27)
[2022-10-20] MEDS: dexAMETHasone 10 MG/ML Vial 6 MG IV (09:46)
[2022-10-20] MEDS: 0.9% Saline Lock 10 ML Syringe IV ×2 (09:49→11:36)
[2022-10-20] MEDS: Ondansetron 4 MG/2 ML Vial IV (09:49)
--- NOTE | 2022-10-20 10:20 | PCM.PN.REN ---
Subjective Subjective Following for ALLEN Sitting up in bed, eating breakfast. Denies any vomiting or diarrhea. Patient does report intermittent nausea. Objective Data Objective Data Vital Signs: Vital Signs Temp Pulse Resp BP Pulse Ox O2 Del Method O2 Flow Rate 97.9 F 76 22 H 118/49 L 86 Nasal Cannula 1.5 10/20/22 09:23 10/20/22 09:23 10/20/22 09:23 10/20/22 09:23 10/20/22 09:34 10/20/22 09:23 10/20/22 09:34 Oxygen Flow Rate (L/min) [ 88 AMBULATING with Oxygen #3] Oxygen Flow Rate (L/min) [At 1.5 REST with Oxygen] Oxygen Flow Rate (L/min) [ 92 AMBULATING with Oxygen #2] Oxygen Flow Rate (L/min) [ 1.5 AMBULATING with Oxygen #1] Oxygen Flow Rate (L/min) 1.5 Oxygen Delivery Method Nasal Cannula Weight: 41.4 kg Body Mass Index (BMI) 14.5 Intake & Output: Intake and Output for Last 24 Hours 10/18/22 10/19/22 10/20/22 23:59 23:59 23:59 Intake Total 2278.33 / 2578.33 1956.67 / 1956.67 Output Total 400 / 800 1550 / 1550 Balance 1878.33 / 1778.33 406.67 / 406.67 Medical Nutrition Assessment Dietitian: Malnutrition Criteria Met Start: 10/19/22 11:13 Freq: Status: Active Protocol: Document 10/19/22 11:13 MARK (Rec: 10/19/22 11:13 MARK [id number]) Nutrition Malnutrition Evidence of Malnutrition Exists Yes Malnutrition (severe): Chronic Evidenced By Suboptimal Energy Intake ( Severe),Weight Loss (Severe) Clinical Problem Altered Nutrient-Related Laboratory Values Etiology related to ALLEN Signs/Symptoms as evidenced by BUN 107, Cr 3. 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 May need to consider more aggressive nutrition support if po intake fails to improve and/or wt loss continues IF in accordance w/ pt/family wishes. Lab / Micro Data Result Diagrams: 10/20/22 07:00 10/20/22 06:32 Labs: Laboratory Results - last 24 hr 10/20/22 06:32: Sodium 135 L, Potassium 3.9, Chloride 109 H, Carbon Dioxide 19.0 L, Anion Gap 7, BUN 71 H, Creatinine 1.34 H, Estim Creat Clear Calc 20.79, Est GFR (MDRD) Af Amer 49 L, Est GFR (MDRD) Non-Af 40 L, BUN/Creatinine Ratio 53.0 H, Glucose 111 H, Calcium 8.6, Phosphorus 2.1 L, Magnesium 2.2 10/20/22 07:00: WBC 15.5 H, RBC 4.21, Hgb 12.3, Hct 36.2 L, MCV 86.0, MCH 29.2, MCHC 34.0, RDW Std Deviation 45.0 H, RDW Coeff of Jazmín 14.3, Plt Count 195, MPV 11.3, Immature Gran % (Auto) 0.500, Neut % (Auto) 83.0 H, Lymph % (Auto) 5.3 L, [place] % (Auto) 11.1 H, Eos % (Auto) 0.0, Baso % (Auto) 0.1, Absolute Neuts (auto) 12.9 H, Absolute Lymphs (auto) 0.83, Nucleated RBC % 0, Differential Comment SCANNED, Diff Path Review May foll Micro: Microbiology 10/19/22 02:40 Mucosa - Nasopharyngeal Respiratory Panel (PCR) - Final 10/19/22 06:30 Urine, Clean Catch Legionella Antigen - Final 10/19/22 06:30 Urine, Clean Catch Streptococcus pneumoniae Antigen (M - Final Streptococcus pneumonia Ag 10/18/22 22:17 Nasal Secretion SARS-CoV-2 & FLU Antigen (Rapid) - Final SARS-CoV-2 (COVID 19) Rhythm Strip Rhythm Strip: Sinus Rhythm Rate: 87 Ectopy: None Physical Exam Narrative Alert and oriented x3, no apparent distress S1, S2, RRR Lung sounds clear, no rhonchi or rales noted Abdomen: Soft, nontender, positive bowel sounds No edema Assessment & Plan Assessment/Plan (1) Acute renal failure (ARF): (2) Acute dehydration: (3) COPD (chronic obstructive pulmonary disease): QUALIFIERS: COPD type: unspecified COPD Qualified Code(s): J44.9 - Chronic obstructive pulmonary disease, unspecified (4) COVID-19: PLAN: Plan -Nonoliguric, hypovolemic ALLEN prerenal azotemia; serum creatinine peaked 4.03 mg/dL on 10/18 and today has improved to 1.34 mg/dL. 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 She is on IV fluids. We will decrease IV rate and can stop IV fluids altogether if okay with primary team. Baseline serum creatinine unknown. Gap in lab work from August 2020 to present time. On September 11, 2020 serum creatinine 0.80 mg/dL. Encouraged patient to try and increase solute and fluid intake as best as she can. -Bicarb improving, 19 today. -Urine culture Streptococcus pneumoniae; on ceftriaxone. -Blood pressures acceptable, she is not on any antihypertensives -Per patient breathing improving, she is on duo nebs and Decadron.
[2022-10-20 14:12] LABS: Pathologist Review Reviewed
--- NOTE | 2022-10-20 19:44 | PN.HOSP_ITS ---
Subjective Subjective Patient was seen and examined today, she is on low-flow oxygen via nasal cannula, she appears to be frail, in my opinion she will probably need temporary placement in an extended care facility for short-term rehab services. Patient's white blood cell count today was 15.5, she is afebrile, patient's urine antigen for Streptococcus pneumonia was positive, she is currently on Rocephin. Patient's creatinine was improved today to 1.34, I do not believe she would benefit from remdesivir or baricitinib at this time. I communicated with nephrology by text today, I have elected to leave the patient on IV fluids for now and her BMP will be repeated tomorrow. Objective Data Objective Data Vital Signs: Vital Signs Temp Pulse Resp BP Pulse Ox O2 Del Method O2 Flow Rate 97.9 F 79 20 H 102/51 L 94 Nasal Cannula 1.5 10/20/22 15:34 10/20/22 15:34 10/20/22 15:34 10/20/22 15:34 10/20/22 15:34 10/20/22 15:34 10/20/22 15:34 Oxygen Flow Rate (L/min) [ 88 AMBULATING with Oxygen #3] Oxygen Flow Rate (L/min) [At 1.5 REST with Oxygen] Oxygen Flow Rate (L/min) [ 92 AMBULATING with Oxygen #2] Oxygen Flow Rate (L/min) [ 1.5 AMBULATING with Oxygen #1] Oxygen Flow Rate (L/min) 1.5 Oxygen Delivery Method Nasal Cannula Weight: 41.4 kg Body Mass Index (BMI) 14.5 Intake & Output: Intake and Output for Last 24 Hours 10/18/22 10/19/22 10/20/22 23:59 23:59 23:59 Intake Total 2278.33 / 2578.33 2056.67 / 2056.67 Output Total 400 / 800 1550 / 1550 Balance 1878.33 / 1778.33 506.67 / 506.67 Medical Nutrition Assessment Dietitian: Malnutrition Criteria Met Start: 10/19/22 11:13 Freq: Status: Active Protocol: Document 10/19/22 11:13 MARK (Rec: 10/19/22 11:13 MARK [id number]) Nutrition Malnutrition Evidence of Malnutrition Exists Yes Malnutrition (severe): Chronic Evidenced By Suboptimal Energy Intake ( Severe),Weight Loss (Severe) Clinical Problem Altered Nutrient-Related Laboratory Values Etiology related to ALLEN Signs/Symptoms as evidenced by BUN 107, Cr 3. 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 May need to consider more aggressive nutrition support if po intake fails to improve and/or wt loss continues IF in accordance w/ pt/family wishes. Lab / Micro Data Result Diagrams: 10/20/22 07:00 10/21/22 04:38 Labs: Laboratory Results - last 24 hr 10/20/22 06:32: Sodium 135 L, Potassium 3.9, Chloride 109 H, Carbon Dioxide 19.0 L, Anion Gap 7, BUN 71 H, Creatinine 1.34 H, Estim Creat Clear Calc 20.79, Est GFR (MDRD) Af Amer 49 L, Est GFR (MDRD) Non-Af 40 L, BUN/Creatinine Ratio 53.0 H , Glucose 111 H, Calcium 8.6, Phosphorus 2.1 L, Magnesium 2.2 10/20/22 07:00: WBC 15.5 H, RBC 4.21, Hgb 12.3, Hct 36.2 L, MCV 86.0, MCH 29.2, MCHC 34.0, RDW Std Deviation 45.0 H, RDW Coeff of Jazmín 14.3, Plt Count 195, MPV 11.3, Immature Gran % (Auto) 0.500, Neut % (Auto) 83.0 H, Lymph % (Auto) 5.3 L, Lanier % (Auto) 11.1 H, Eos % (Auto) 0.0, Baso % (Auto) 0.1, Absolute Neuts (auto) 12.9 H, Absolute Lymphs (auto) 0.83, Nucleated RBC % 0, Differential Comment SCANNED, Diff Path Review Reviewed Micro: Microbiology 10/19/22 02:40 Mucosa - Nasopharyngeal Respiratory Panel (PCR) - Final 10/19/22 06:30 Urine, Clean Catch Legionella Antigen - Final 10/19/22 06:30 Urine, Clean Catch Streptococcus pneumoniae Antigen (M - Final Streptococcus pneumonia Ag 10/18/22 22:17 Nasal Secretion SARS-CoV-2 & FLU Antigen (Rapid) - Final SARS-CoV-2 (COVID 19) Radiography Diagnostic Testing: Radiology Impression Lung Scan-VQ NM 10/19/22 08:20 IMPRESSION: 1. LOW PROBABILITY FOR PULMONARY EMBOLUS (R 12%) 99m Tc MAA pulmonary perfusion imaging examination, according to PISA-PED (Prospective Investigative Study of Pulmonary Embolism Diagnosis) interpretive criteria with regard given to the presence of minimally heterogeneous perfusion without significant peripheral perfusion abnormalities. (Miniemiliana et al, Am J Respir Crit Care Med 154: 1387, 1995). Electronically Signed: Deondre Angel at 13:32 EST , Venous Doppler Study 10/19/22 09:08 Interpretation Summary Deep veins of the bilateral lower extremities are patent and compressible segmentally. There is no evidence of bilateral lower extremity deep vein thrombosis. The bilateral great saphenous veins appear patent and compressible segmentally. Ordering Physician: Mindy Flores Referring Physician: Dory Johnson M.D. Performed By: Alvaro Roman RVT Renal Ultrasound 10/20/22 05:55 IMPRESSION: Moderate bilateral hydronephrosis. Electronically Signed: Qasim Haro MD at 18:13 EST , Rhythm Strip Rhythm Strip: Sinus Rhythm Rate: 87 Ectopy: None Physical Exam Const alert, oriented x3 and no apparent distress Constitutional Narrative: Patient appears cachectic and unwell General Appearance: cooperative, well kempt and well developed Orientation / Consciousness: awake, oriented to person, oriented to place and oriented to time HEENT normocephalic, head/scalp atraumatic and moist oral mucous membranes Eyes PERRL, EOMs intact bilaterally and conjunctivae normal Neck supple, no JVD, thyroid normal and no carotid bruits General: trachea midline Resp normal respiratory effort, no retractions and no use of accessory muscles Resp Narrative: Breath sounds are diminished bilaterally Auscultation: Negative for rales, rhonchi or wheezes Cardio regular rate, regular rhythm, S1 normal heart sound, S2 normal heart sound, no murmurs, no rub and no gallops GI normal to inspection, nondistended, normoactive bowel sounds, soft to palpation, non-tender and non-distended Extremity no clubbing, cyanosis or edema Extremity Narrative: Patient has marked muscle wasting in the legs and arms Skin no rashes or lesions noted General Skin Exam: no breakdown Neuro oriented x3, CN's II-XII intact bilaterally, moves all extremities, no focal motor deficits and no sensory deficits noted Sensorium / Orientation: awake, alert, oriented to person and oriented to place Speech: speech normal Psych affect normal Assessment & Plan Assessment/Plan (1) COVID-19: PLAN: Plan 1. Strep pneumoniae pneumonia-patient will remain on Rocephin at this time #2 COVID-19 infection without demonstratable infiltrate-patient is not a candidate for remdesivir or baricitinib at this time, patient appears to be doing well on dexamethasone alone #3 chronic protein and caloric malnutrition-etiology unclear, nutritional services is seeing patient #4 chronic obstructive pulmonary disease-patient continues to smoke at home, patient is on home O2, she will be continued on aerosol treatment #5 chronic hypoxic respiratory failure-patient appears to be on her baseline oxygen requirement, pulse ox will be monitored #6 nausea-etiology unclear, patient will be encouraged to eat, she may need a work-up if she has persistent difficulty with oral intake. #7 acute kidney injury-patient's creatinine is improved today, continue IV fluids, nephrology is participating in her care #8 acute debility-patient is being seen by PT and OT, she will need short-term placement in a long term facility. Charges/Coding Visit Charges Inpatient E&M: 05940 Subs Hosp L2
[2022-10-20] MEDS: 0.9% Normal Saline 1,000 ML 75 ML IV (20:28)
[2022-10-20] MEDS: Menthol/Lanolin/Calamine/Znox 113 GM Tube 1 APPLIC TOPICAL (20:31)
[2022-10-21] VITALS (7 sets, daily range): BP systolic 106–139; BP diastolic 37–65; PULSE 69–87; RESP 18–22; TEMP 36.1–36.6; O2SAT 92–95
[2022-10-21 05:08] LABS: Anion Gap 5 (5-15); BUN 45 mg/dL (7-18); BUN/Creat Ratio 50.7 RATIO (10-20); Calcium,Total 8.9 mg/dL (8.5-10.1); Chloride 110 mmol/L (98-107); Creatinine, Serum 0.89 mg/dL (0.55-1.02); EST Glomerular Filtration Rate 65 mL/min (>60); Est Glom Filt Rate - Afr Amer 78 mL/min (>60); Estimated Creatinine Clearance 31.68 ml/min; Glucose 102 mg/dL (74-106); Potassium 3.8 mmol/L (3.5-5.1); Sodium Level 142 mmol/L (136-145)
[2022-10-21] MEDS: Ipratropium/Albuterol Sulfate 3 ML AMPUL.NEB INHALATION (07:17)
[2022-10-21] MEDS: Ondansetron 4 MG/2 ML Vial IV (07:34)
--- NOTE | 2022-10-21 09:08 | NURSING ---
emergency documentation initiated
[2022-10-21] MEDS: 0.9% Normal Saline 1,000 ML 75 ML IV (09:15)
[2022-10-21] MEDS: Menthol/Lanolin/Calamine/Znox 113 GM Tube 1 APPLIC TOPICAL ×2 (09:15→22:21)
[2022-10-21] MEDS: Ceftriaxone 1 GM/50 ML BAG IV (09:15)
[2022-10-21] MEDS: Mag Hydrox/Al Hydrox/Simeth 30 ML UDC PO (09:17)
[2022-10-21] MEDS: 0.9% Saline Lock 10 ML Syringe IV ×2 (09:17→12:11)
[2022-10-21] MEDS: Heparin Injection (Vial) 5,000 UNIT/ML VIAL 5000 UNIT SC ×2 (09:18→22:24)
[2022-10-21] MEDS: dexAMETHasone 10 MG/ML Vial 6 MG IV (09:18)
[2022-10-21] MEDS: proCHLORPERazine 10 MG/2 ML Vial 5 MG IV (09:18)
--- NOTE | 2022-10-21 11:48 | PCM.PN.REN ---
Subjective Subjective Following for ALLEN Sitting up in bed. States has poor appetite but denies any nausea, vomiting or diarrhea. No overnight events Objective Data Objective Data Vital Signs: Vital Signs Temp Pulse Resp BP Pulse Ox O2 Del Method O2 Flow Rate 97.9 F 69 20 H 136/65 H 94 Nasal Cannula 1.5 10/21/22 09:12 10/21/22 09:12 10/21/22 09:12 10/21/22 09:12 10/21/22 09:12 10/21/22 09:12 10/21/22 09:12 Oxygen Flow Rate (L/min) [ 88 AMBULATING with Oxygen #3] Oxygen Flow Rate (L/min) [At 1.5 REST with Oxygen] Oxygen Flow Rate (L/min) [ 92 AMBULATING with Oxygen #2] Oxygen Flow Rate (L/min) [ 1.5 AMBULATING with Oxygen #1] Oxygen Flow Rate (L/min) 1.5 Oxygen Delivery Method Nasal Cannula Weight: 41.9 kg Body Mass Index (BMI) 14.5 Intake & Output: Intake and Output for Last 24 Hours 10/19/22 10/20/22 10/21/22 23:59 23:59 23:59 Intake Total 2278.33 / 2578.33 2569.17 / 2569.17 1210.00 / 1210.00 Output Total 400 / 800 1550 / 1550 700 / 700 Balance 1878.33 / 1778.33 1019.17 / 1019.17 510.00 / 510.00 Medical Nutrition Assessment Dietitian: Malnutrition Criteria Met Start: 10/19/22 11:13 Freq: Status: Active Protocol: Document 10/19/22 11:13 MARK (Rec: 10/19/22 11:13 MARK [id number]) Nutrition Malnutrition Evidence of Malnutrition Exists Yes Malnutrition (severe): Chronic Evidenced By Suboptimal Energy Intake ( Severe),Weight Loss (Severe) Clinical Problem Altered Nutrient-Related Laboratory Values Etiology related to ALLEN Signs/Symptoms as evidenced by BUN 107, Cr 3. 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 May need to consider more aggressive nutrition support if po intake fails to improve and/or wt loss continues IF in accordance w/ pt/family wishes. Lab / Micro Data Result Diagrams: 10/20/22 07:00 10/21/22 04:38 Labs: Laboratory Results - last 24 hr 10/20/22 07:00: Diff Path Review Reviewed 10/21/22 04:38: Sodium 142, Potassium 3.8, Chloride 110 H, Carbon Dioxide 27.0, Anion Gap 5, BUN 45 H, Creatinine 0.89, Estim Creat Clear Calc 31.68, Est GFR (MDRD) Af Amer 78, Est GFR (MDRD) Non-Af 65, BUN/Creatinine Ratio 50.7 H, Glucose 102, Calcium 8.9 Micro: Microbiology 10/19/22 02:40 Mucosa - Nasopharyngeal Respiratory Panel (PCR) - Final 10/19/22 06:30 Urine, Clean Catch Legionella Antigen - Final 10/19/22 06:30 Urine, Clean Catch Streptococcus pneumoniae Antigen (M - Final Streptococcus pneumonia Ag 10/18/22 22:17 Nasal Secretion SARS-CoV-2 & FLU Antigen (Rapid) - Final SARS-CoV-2 (COVID 19) Radiography Diagnostic Testing: Radiology Impression Lung Scan-VQ NM 10/19/22 08:20 IMPRESSION: 1. LOW PROBABILITY FOR PULMONARY EMBOLUS (R 12%) 99m Tc MAA pulmonary perfusion imaging examination, according to PISA-PED (Prospective Investigative Study of Pulmonary Embolism Diagnosis) interpretive criteria with regard given to the presence of minimally heterogeneous perfusion without significant peripheral perfusion abnormalities. (Elli et al, Am J Respir Crit Care Med 154: 1387, 1996). Electronically Signed: Deondre Angel, at 13:32 EST , Venous Doppler Study 10/19/22 09:08 Interpretation Summary Deep veins of the bilateral lower extremities are patent and compressible segmentally. There is no evidence of bilateral lower extremity deep vein thrombosis. The bilateral great saphenous veins appear patent and compressible segmentally. Ordering Physician: Mindy Flores Referring Physician: Dory Johnson M.D. Performed By: Alvaro Roman, RVT Renal Ultrasound 10/20/22 05:55 IMPRESSION: Moderate bilateral hydronephrosis. Electronically Signed: Qasim Haro MD at 18:13 EST , Rhythm Strip Rhythm Strip: Sinus Rhythm Rate: 87 Ectopy: None Physical Exam Narrative Alert and oriented x3, no apparent distress S1, S2, RRR Lung sounds clear, no rhonchi or rales noted Abdomen: Soft, nontender, positive bowel sounds No edema Assessment & Plan Assessment/Plan (1) Acute renal failure (ARF): (2) Acute dehydration: (3) COPD (chronic obstructive pulmonary disease): QUALIFIERS: COPD type: unspecified COPD Qualified Code(s): J44.9 - Chronic obstructive pulmonary disease, unspecified (4) COVID-19: PLAN: Plan -Nonoliguric, hypovolemic ALLEN prerenal azotemia; serum creatinine peaked 4.03 mg/dL on 10/18 and today has improved to 0.89mg/dL. 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 She is on IV fluids. We decreased rate yesterday but will stop IV fluids altogether. Baseline serum creatinine unknown; gap in lab work from August 2020 to present time. On September 11, 2020 serum creatinine 0.80 mg/dL. Encouraged patient to try and increase solute and fluid intake as best as she can. -Bicarb improving/normal today -Urine culture Streptococcus pneumoniae; on ceftriaxone. -Blood pressures acceptable, she is not on any antihypertensives -Per patient breathing improving, she is on duo nebs and Decadron. -d/w with Dr. Nur
[2022-10-21] MEDS: Pantoprazole Sodium 40 MG Tablet PO (12:10)
[2022-10-21] MEDS: Polyethylene Glycol 3350 17 GM PACKET PO (12:10)
--- NOTE | 2022-10-21 14:35 | CASEMGMT ---
NOLA WAYNE Assessment: Face to Face with pt for initial transition planning/care coordination assessment. NOLA WAYNE introduced self and role at [facility], pt voices understanding and consents to assessment. Pt is A/O x4 and answers all questions appropriately at this time. Pt sitting in bed with oxygen on in no distress with granddtr at bedside. Pt reports she is nauseated. Hospitalist came in room to discuss care with granddtr mid assessment. Care providers, pharmacy, and demographics verified/updated. Admitting Dx: COVID, ALLEN, COPD PCP: Alex Specialists:jodie Wellington Preferred Pharmacy: [facility] Insurance: [facility] Prescription Benefit: yes LNOK: Kaley Nava Living Arrangements: Pt lives alone in [place] on the 4th floor with an elevator to enter. Pt reports she is typically I in ADL's and denies concerns at home. Transportation: Pt private pays for transportation from [facility] at [place]. DME/HHC/SNF: Pt has a FWW at home as well as a pox and oxygen through [facility]. Pt reports she is on 2L cont. Pt has portable tanks. Pt denies hx of HHC or SNF stays. Pt states she knows she needs to go to a SNF for therapy prior to returning home to regain her strength. SW has already discussed with pt. Pt states no further concerns/needs. CM to follow. Advised pt to ask CM if any further question/concerns/needs arise, voices understanding. Pt Goal: SNF, [facility] Plan: SNF, [facility] pending acceptance
--- NOTE | 2022-10-21 14:35 | CASEMGMT ---
Social Work? SW in to meet with pt following update from that pt will need placement at nursing facility. Pt was provided A list of SNF providers including quality and resource use data and consistent with the patient?s preferred geographic region, medical needs, and insurance network were provided from the [facility] Guide yesterday afternoon by nurse, as SW was working on many different cases and could not make it to this pt. SW instructed nurse to have pt review list and make choice for SNF. Today SW introduced self and role at the hospital. Pt granddaughter Kaley was also present in the rooom. Pt and family agreeable to discussing discharge planning. Pt reviewed list and shared [facility] would be first preference, [facility] second. SW informed Ana davies discharge administrative assistant coordinator of pt choice. Ana to send referral. PLAN: [facility] vs[facility], pending acceptance KARIN [place]?
--- NOTE | 2022-10-21 14:36 | CASEMGMT ---
Discharge Enrober This senior mortgage underwriter sent referral to [facility] via [facility]. Liliane NOEL Facilities Plant Engineer
[2022-10-21] MEDS: Ondansetron ODT 4 MG Tablet PO ×2 (15:48→22:22)
--- NOTE | 2022-10-21 19:11 | PCM.PN.HOSP ---
Subjective Subjective Patient was seen and examined today, she has been on supplemental oxygen at a low flow rate-usually 2 or 1.5 L/min. I talked at length with the patient's granddaughter who was visiting her, I went over the patient's medical problems and reiterated the need for the patient to go to an extended care facility for short-term inpatient rehab services. Patient has not been able to eat due to nausea, I have elected to place her on program Zofran to see if this helps. If this does not help, she may need to undergo a barium swallow to make sure that there are no other problems to address. According to the patient's granddaughter, patient is lost approximately 20 pounds over the last 2 months. Patient continues to smoke at home. Objective Data Objective Data Vital Signs: Vital Signs Temp Pulse Resp BP Pulse Ox O2 Del Method O2 Flow Rate 97.8 F 78 22 H 106/37 L 94 Nasal Cannula 1.5 10/21/22 15:42 10/21/22 15:42 10/21/22 15:42 10/21/22 15:42 10/21/22 15:42 10/21/22 13:49 10/21/22 15:42 Oxygen Flow Rate (L/min) [ 88 AMBULATING with Oxygen #3] Oxygen Flow Rate (L/min) [At 1.5 REST with Oxygen] Oxygen Flow Rate (L/min) [ 92 AMBULATING with Oxygen #2] Oxygen Flow Rate (L/min) [ 1.5 AMBULATING with Oxygen #1] Oxygen Flow Rate (L/min) 1.5 Oxygen Delivery Method Nasal Cannula Weight: 41.9 kg Body Mass Index (BMI) 14.5 Intake & Output: Intake and Output for Last 24 Hours 10/19/22 10/20/22 10/21/22 23:59 23:59 23:59 Intake Total 2278.33 / 2578.33 2569.17 / 2569.17 1530.00 / 1530.00 Output Total 400 / 800 1550 / 1550 700 / 700 Balance 1878.33 / 1778.33 1019.17 / 1019.17 830.00 / 830.00 Medical Nutrition Assessment Dietitian: Malnutrition Criteria Met Start: 10/19/22 11:13 Freq: Status: Active Protocol: Document 10/19/22 11:13 SLA (Rec: 10/19/22 11:13 [facility] [id number]) Nutrition Malnutrition Evidence of Malnutrition Exists Yes Malnutrition (severe): Chronic Evidenced By Suboptimal Energy Intake ( Severe),Weight Loss (Severe) Clinical Problem Altered Nutrient-Related Laboratory Values Etiology related to ALLEN Signs/Symptoms as evidenced by BUN 107, Cr 3. 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 May need to consider more aggressive nutrition support if po intake fails to improve and/or wt loss continues IF in accordance w/ pt/family wishes. Lab / Micro Data Result Diagrams: 10/20/22 07:00 10/21/22 04:38 Labs: Laboratory Results - last 24 hr 10/21/22 04:38: Sodium 142, Potassium 3.8, Chloride 110 H, Carbon Dioxide 27.0, Anion Gap 5, BUN 45 H, Creatinine 0.89, Estim Creat Clear Calc 31.68, Est GFR (MDRD) Af Amer 78, Est GFR (MDRD) Non-Af 65, BUN/Creatinine Ratio 50.7 H, Glucose 102, Calcium 8.9 Micro: Microbiology 10/19/22 02:40 Mucosa - Nasopharyngeal Respiratory Panel (PCR) - Final 10/19/22 06:30 Urine, Clean Catch Legionella Antigen - Final 10/19/22 06:30 Urine, Clean Catch Streptococcus pneumoniae Antigen (M - Final Streptococcus pneumonia Ag 10/18/22 22:17 Nasal Secretion SARS-CoV-2 & FLU Antigen (Rapid) - Final SARS-CoV-2 (COVID 19) Radiography Diagnostic Testing: Radiology Impression Renal Ultrasound 10/20/22 05:55 IMPRESSION: Moderate bilateral hydronephrosis. Electronically Signed: Qasim Haro MD at 18:13 EST , Rhythm Strip Rhythm Strip: Sinus Rhythm Rate: 87 Ectopy: None Physical Exam Narrative alert, oriented x3 and no apparent distress Constitutional Narrative: Patient appears cachectic and unwell General Appearance: cooperative, well kempt and well developed Orientation / Consciousness: awake, oriented to person, oriented to place and oriented to time HEENT normocephalic, head/scalp atraumatic and moist oral mucous membranes Eyes PERRL, EOMs intact bilaterally and conjunctivae normal Neck supple, no JVD, thyroid normal and no carotid bruits General: trachea midline Resp normal respiratory effort, no retractions and no use of accessory muscles Resp Narrative: Breath sounds are diminished bilaterally Auscultation: Negative for rales, rhonchi or wheezes Cardio regular rate, regular rhythm, S1 normal heart sound, S2 normal heart sound, no murmurs, no rub and no gallops GI normal to inspection, nondistended, normoactive bowel sounds, soft to palpation, non-tender and non-distended Extremity no clubbing, cyanosis or edema Extremity Narrative: Patient has marked muscle wasting in the legs and arms Skin no rashes or lesions noted General Skin Exam: no breakdown Neuro oriented x3, CN's II-XII intact bilaterally, moves all extremities, no focal motor deficits and no sensory deficits noted Sensorium / Orientation: awake, alert, oriented to person and oriented to place Speech: speech normal Psych affect normal Assessment & Plan Assessment/Plan (1) Acute dehydration: (2) COVID-19: PLAN: Plan 1. Strep pneumoniae pneumonia-patient will remain on Rocephin at this time #2 COVID-19 infection without demonstratable infiltrate-patient is not a candidate for remdesivir or baricitinib at this time, patient appears to be doing well on dexamethasone alone #3 chronic protein and caloric malnutrition-etiology unclear, nutritional services is seeing patient, if patient continues to have poor oral intake, she may need imaging studies of the esophagus and stomach or an EGD. This unfortunately could be problematic due to her acute COVID infection. #4 chronic obstructive pulmonary disease-patient continues to smoke at home, patient is on home O2, she will be continued on aerosol treatment #5 chronic hypoxic respiratory failure-patient appears to be on her baseline oxygen requirement, pulse ox will be monitored #6 nausea-etiology unclear, patient will be encouraged to eat, she may need a work-up if she has persistent difficulty with oral intake. #7 acute kidney injury-patient's creatinine is improved today, continue IV fluids, nephrology is participating in her care #8 acute debility-patient is being seen by PT and OT, she will need [facility]-term [facility]. Charges/Coding Visit Charges Inpatient E&M: 97746 Subs Hosp L2
[2022-10-21] MEDS: Mirtazapine 15 MG Tablet PO (22:22)
[2022-10-22 04:58] VITALS: BP 123/66; PULSE 96; RESP 18; TEMP 36.1; O2SAT 94
[2022-10-22] MEDS: Ondansetron ODT 4 MG Tablet PO ×4 (05:01→22:26)
[2022-10-22] MEDS: Acetaminophen 325 MG Tablet 650 MG PO (05:01)
[2022-10-22 06:38] LABS: Anion Gap 6 (5-15); BUN 37 mg/dL (7-18); BUN/Creat Ratio 37.4 RATIO (10-20); Calcium,Total 9.1 mg/dL (8.5-10.1); Chloride 103 mmol/L (98-107); Creatinine, Serum 0.99 mg/dL (0.55-1.02); EST Glomerular Filtration Rate 57 mL/min (>60); Est Glom Filt Rate - Afr Amer 69 mL/min (>60); Estimated Creatinine Clearance 28.28 ml/min; Glucose 118 mg/dL (74-106); Potassium 3.8 mmol/L (3.5-5.1); Sodium Level 139 mmol/L (136-145)
[2022-10-22 07:30] VITALS: O2SAT 92
--- NOTE | 2022-10-22 10:01 | CASEMGMT ---
Discharge Software Reverse Engineer This typewriter operator automatic spoke with Iron with [employer]. Iron has not been able to review referral yet. Liliane NOEL Spiral Winding Machine Helper
[2022-10-22] MEDS: dexAMETHasone 10 MG/ML Vial 6 MG IV (10:22)
[2022-10-22] MEDS: Polyethylene Glycol 3350 17 GM PACKET PO (10:22)
[2022-10-22] MEDS: Pantoprazole Sodium 40 MG Tablet PO (10:22)
[2022-10-22] MEDS: Menthol/Lanolin/Calamine/Znox 113 GM Tube 1 APPLIC TOPICAL ×2 (10:23→22:25)
[2022-10-22] MEDS: Heparin Injection (Vial) 5,000 UNIT/ML VIAL 5000 UNIT SC ×2 (10:23→22:26)
[2022-10-22 10:35] VITALS: BP 133/61; PULSE 90; RESP 16; TEMP 36.6; O2SAT 92
[2022-10-22] MEDS: Ceftriaxone 1 GM/50 ML BAG IV (11:22)
--- NOTE | 2022-10-22 11:24 | PCM.PN.REN ---
Subjective Subjective Chart reviewed, hemodynamically stable Acute kidney injury markedly improved serum creatinine is at 0.9 mg/dL today, electrolytes are stable Nephrology will sign off and monitor peripherally. Please call [phone] with any concerns Objective Data Objective Data Vital Signs: Vital Signs Temp Pulse Resp BP Pulse Ox O2 Del Method O2 Flow Rate 97.8 F 90 16 133/61 H 92 Nasal Cannula 2 10/22/22 10:35 10/22/22 10:35 10/22/22 10:35 10/22/22 10:35 10/22/22 10:35 10/22/22 10:35 10/22/22 10:35 Oxygen Flow Rate (L/min) [ 88 AMBULATING with Oxygen #3] Oxygen Flow Rate (L/min) [At 1.5 REST with Oxygen] Oxygen Flow Rate (L/min) [ 92 AMBULATING with Oxygen #2] Oxygen Flow Rate (L/min) [ 1.5 AMBULATING with Oxygen #1] Oxygen Flow Rate (L/min) 2 Oxygen Delivery Method Nasal Cannula Weight: 41.6 kg Body Mass Index (BMI) 14.5 Intake & Output: Intake and Output for Last 24 Hours 10/20/22 10/21/22 10/22/22 23:59 23:59 23:59 Intake Total 2569.17 / 2569.17 1530.00 / 1530.00 Output Total 1550 / 1550 700 / 700 Balance 1019.17 / 1019.17 830.00 / 830.00 Medical Nutrition Assessment Dietitian: Malnutrition Criteria Met Start: 10/19/22 11:13 Freq: Status: Active Protocol: Document 10/19/22 11:13 MARK (Rec: 10/19/22 11:13 MARK [id number]) Nutrition Malnutrition Evidence of Malnutrition Exists Yes Malnutrition (severe): Chronic Evidenced By Suboptimal Energy Intake ( Severe),Weight Loss (Severe) Clinical Problem Altered Nutrient-Related Laboratory Values Etiology related to ALLEN Signs/Symptoms as evidenced by BUN 107, Cr 3. 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 May need to consider more aggressive nutrition support if po intake fails to improve and/or wt loss continues IF in accordance w/ pt/family wishes. Lab / Micro Data Result Diagrams: 10/20/22 07:00 10/22/22 05:54 Labs: Laboratory Results - last 24 hr 10/22/22 05:54: Sodium 139, Potassium 3.8, Chloride 103, Carbon Dioxide 30.0, Anion Gap 6, BUN 37 H, Creatinine 0.99, Estim Creat Clear Calc 28.28, Est GFR (MDRD) Af Amer 69, Est GFR (MDRD) Non-Af 57 L, BUN/Creatinine Ratio 37.4 H, Glucose 118 H, Calcium 9.1 Micro: Microbiology 10/19/22 02:40 Mucosa - Nasopharyngeal Respiratory Panel (PCR) - Final 10/19/22 06:30 Urine, Clean Catch Legionella Antigen - Final 10/19/22 06:30 Urine, Clean Catch Streptococcus pneumoniae Antigen (M - Final Streptococcus pneumonia Ag 10/18/22 22:17 Nasal Secretion SARS-CoV-2 & FLU Antigen (Rapid) - Final SARS-CoV-2 (COVID 19) Rhythm Strip Rhythm Strip: Sinus Rhythm Rate: 87 Ectopy: None
--- NOTE | 2022-10-22 11:26 | CASEMGMT ---
Discharge Education Professional [facility] is unable to take patient due to patient having covid and no beds. This senior medical writer sent referral to [facility] second [facility]. Liliane NOEL Watch And Clock Repair Clerk
--- NOTE | 2022-10-22 13:18 | CASEMGMT ---
Discharge General Surgeon [facility] can accept patient. Pre-cert can be obtained once patient arrives at facility. MARK Freitas notified. Liliane NOEL Production Line
[2022-10-22 14:45] VITALS: O2SAT 94
--- NOTE | 2022-10-22 15:30 | CASEMGMT ---
Social Work SW met with pt and introduced self and role of SW. Pt updated that [facility] could not accept but [facility] will accept when medically ready. Pt agreeable and requests granddgt be notified. Phone call to pt granddgt Kaley and updated on stated discharge plan. Kaley agreeable. Plan: [facility] [facility], when medically ready KARIN Hester
[2022-10-22 16:30] VITALS: BP 96/54; PULSE 78; RESP 16; TEMP 36.5; O2SAT 96
--- NOTE | 2022-10-22 18:04 | PN.HOSP_ITS ---
Subjective Subjective Patient was seen and examined today, she continues to appear fatigued and weak, she states she is still nauseated despite being on program Zofran. Late this afternoon I talked with her nurse who stated that the patient was able to drink some Ensure and that per a conversation with the patient's granddaughter that the nurses had, she stated that the patient is a very picky eater. Patient remains on her baseline oxygen requirement. Objective Data Objective Data Vital Signs: Vital Signs Temp Pulse Resp BP Pulse Ox O2 Del Method O2 Flow Rate 97.7 F L 78 16 96/54 L 96 Nasal Cannula 2 10/22/22 16:30 10/22/22 16:30 10/22/22 16:30 10/22/22 16:30 10/22/22 16:30 10/22/22 17:00 10/22/22 17:00 Oxygen Flow Rate (L/min) [ 88 AMBULATING with Oxygen #3] Oxygen Flow Rate (L/min) [At 1.5 REST with Oxygen] Oxygen Flow Rate (L/min) [ 92 AMBULATING with Oxygen #2] Oxygen Flow Rate (L/min) [ 1.5 AMBULATING with Oxygen #1] Oxygen Flow Rate (L/min) 2 Oxygen Delivery Method Nasal Cannula Weight: 41.6 kg Body Mass Index (BMI) 14.5 Intake & Output: Intake and Output for Last 24 Hours 10/20/22 10/21/22 10/22/22 23:59 23:59 23:59 Intake Total 2569.17 / 2569.17 1530.00 / 1530.00 610 / 610 Output Total 1550 / 1550 700 / 700 Balance 1019.17 / 1019.17 830.00 / 830.00 610 / 610 Medical Nutrition Assessment Dietitian: Malnutrition Criteria Met Start: 10/19/22 11:13 Freq: Status: Active Protocol: Document 10/19/22 11:13 MARK (Rec: 10/19/22 11:13 MARK [id number]) Nutrition Malnutrition Evidence of Malnutrition Exists Yes Malnutrition (severe): Chronic Evidenced By Suboptimal Energy Intake ( Severe),Weight Loss (Severe) Clinical Problem Altered Nutrient-Related Laboratory Values Etiology related to ALLEN Signs/Symptoms as evidenced by BUN 107, Cr 3. 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 May need to consider more aggressive nutrition support if po intake fails to improve and/or wt loss continues IF in accordance w/ pt/family wishes. Lab / Micro Data Result Diagrams: 10/20/22 07:00 10/22/22 05:54 Labs: Laboratory Results - last 24 hr 10/22/22 05:54: Sodium 139, Potassium 3.8, Chloride 103, Carbon Dioxide 30.0, Anion Gap 6, BUN 37 H, Creatinine 0.99, Estim Creat Clear Calc 28.28, Est GFR (MDRD) Af Amer 69, Est GFR (MDRD) Non-Af 57 L, BUN/Creatinine Ratio 37.4 H, Glucose 118 H, Calcium 9.1 Micro: Microbiology 10/19/22 02:40 Mucosa - Nasopharyngeal Respiratory Panel (PCR) - Final 10/19/22 06:30 Urine, Clean Catch Legionella Antigen - Final 10/19/22 06:30 Urine, Clean Catch Streptococcus pneumoniae Antigen (M - Final Streptococcus pneumonia Ag 10/18/22 22:17 Nasal Secretion SARS-CoV-2 & FLU Antigen (Rapid) - Final SARS-CoV-2 (COVID 19) Rhythm Strip Rhythm Strip: Sinus Rhythm Rate: 87 Ectopy: None Physical Exam Narrative alert, oriented x3 and no apparent distress Constitutional Narrative: Patient appears cachectic and unwell General Appearance: cooperative, well kempt and well developed Orientation / Consciousness: awake, oriented to person, oriented to place and oriented to time HEENT normocephalic, head/scalp atraumatic and moist oral mucous membranes Eyes PERRL, EOMs intact bilaterally and conjunctivae normal Neck supple, no JVD, thyroid normal and no carotid bruits General: trachea midline Resp normal respiratory effort, no retractions and no use of accessory muscles Resp Narrative: Breath sounds are diminished bilaterally Auscultation: Negative for rales, rhonchi or wheezes Cardio regular rate, regular rhythm, S1 normal heart sound, S2 normal heart sound, no murmurs, no rub and no gallops GI normal to inspection, nondistended, normoactive bowel sounds, soft to palpation, non-tender and non-distended Extremity no clubbing, cyanosis or edema Extremity Narrative: Patient has marked muscle wasting in the legs and arms Skin no rashes or lesions noted General Skin Exam: no breakdown Neuro oriented x3, CN's II-XII intact bilaterally, moves all extremities, no focal motor deficits and no sensory deficits noted Sensorium / Orientation: awake, alert, oriented to person and oriented to place Speech: speech normal Psych affect normal Assessment & Plan Assessment/Plan (1) COVID-19: (2) Acute dehydration: PLAN: Plan 1. Strep pneumoniae pneumonia-patient will remain on Rocephin at this time #2 COVID-19 infection without demonstratable infiltrate-patient is not a candidate for remdesivir or baricitinib at this time, patient appears to be doing well on dexamethasone alone #3 chronic protein and caloric malnutrition-etiology unclear, nutritional services is seeing patient, if patient continues to have poor oral intake, she may need imaging studies of the esophagus and stomach or an EGD. At this time she is receiving Remeron. #4 chronic obstructive pulmonary disease-patient continues to smoke at home, patient is on home O2, she will be continued on aerosol treatment #5 chronic hypoxic respiratory failure-patient appears to be on her baseline oxygen requirement, pulse ox will be monitored #6 nausea-etiology unclear, patient will be encouraged to eat, she may need a work-up if she has persistent difficulty with oral intake. For now, patient is on program Zofran and I will reevaluate her tomorrow. #7 acute kidney injury-patient's creatinine is improved today, continue IV fluids, nephrology is participating in her care #8 acute debility-patient is being seen by PT and OT, she will need short-term placement in a residential facility. We have received approval for her to go to a nursing facility but I will need to reevaluate her tomorrow for transfer. Charges/Coding Visit Charges Inpatient E&M: 96477 Subs Hosp L2
--- NOTE | 2022-10-22 18:04 | NURSING ---
Update given to greg per pts request.
[2022-10-22 22:20] VITALS: BP 102/54; PULSE 62; RESP 18; TEMP 36.1; O2SAT 97
[2022-10-22] MEDS: Mirtazapine 15 MG Tablet PO (22:26)
[2022-10-23] VITALS (7 sets, daily range): BP systolic 116–142; BP diastolic 41–55; PULSE 93; RESP 18–20; TEMP 36.1–36.6; O2SAT 87–95
[2022-10-23] MEDS: Ondansetron ODT 4 MG Tablet PO (04:33)
[2022-10-23] MEDS: Pantoprazole Sodium 40 MG Tablet PO (09:34)
[2022-10-23] MEDS: Ceftriaxone 1 GM/50 ML BAG IV (09:35)
[2022-10-23] MEDS: dexAMETHasone 10 MG/ML Vial 6 MG IV (09:36)
[2022-10-23] MEDS: Polyethylene Glycol 3350 17 GM PACKET PO (09:36)
[2022-10-23] MEDS: Heparin Injection (Vial) 5,000 UNIT/ML VIAL 5000 UNIT SC (09:37)
--- NOTE | 2022-10-23 11:24 | TREXTCAR_ITS ---
Diet Diet Order/Speech Therapy: 10/19/22 01:11 Diet: Regular - General Food consistency:: Regular Liquid Consistency:: Regular/Thin Is pt able to select menu?: No Diet Comments: fortified foods as able Routine Orders/Code Status O2 Liters per Minute: 2 O2 Frequency: Continuous Code Status: DNRCC-A (no intubation) Therapies Weight Bearing: Full weight bearing Physical Therapy: Eval and Treat Occupational Therapy: Eval and Treat Problem/Diagnosis (1) COVID-19: Status: Acute Code(s): U07.1 - COVID-19 (2) Acute dehydration: Status: Acute Code(s): E86.0 - Dehydration (3) Pneumonia: Status: Acute Code(s): J18.9 - Pneumonia, unspecified organism Comment: positive Strep antigen in urine (4) COPD (chronic obstructive pulmonary disease): Status: Chronic Code(s): J44.9 - Chronic obstructive pulmonary disease, unspecified (5) Acute and chronic respiratory failure with hypoxia: Status: Chronic Code(s): J96.21 - Acute and chronic respiratory failure with hypoxia (6) Severe protein-calorie malnutrition: Status: Chronic Code(s): E43 - Unspecified severe protein-calorie malnutrition Plan 1. Strep pneumoniae pneumonia-patient will remain on Rocephin at this time #2 COVID-19 infection without demonstratable infiltrate-patient is not a candidate for remdesivir or baricitinib at this time, patient appears to be doing well on dexamethasone alone #3 chronic protein and caloric malnutrition-etiology unclear, nutritional services is seeing patient, if patient continues to have poor oral intake, she may need imaging studies of the esophagus and stomach or an EGD. At this time she is receiving Remeron. #4 chronic obstructive pulmonary disease-patient continues to smoke at home, patient is on home O2, she will be continued on aerosol treatment #5 chronic hypoxic respiratory failure-patient appears to be on her baseline oxygen requirement, pulse ox will be monitored #6 nausea-etiology unclear, patient will be encouraged to eat, she may need a work-up if she has persistent difficulty with oral intake. For now, patient is on program Zofran and I will reevaluate her tomorrow. #7 acute kidney injury-patient's creatinine is improved today, continue IV fluids, nephrology is participating in her care #8 acute debility-patient is being seen by PT and OT, she will need short-term placement in a group home facility. We have received approval for her to go to a nursing facility but I will need to reevaluate her tomorrow for transfer. Allergies/Procedures Done in Hospital Allergies prednisone Allergy (Severe, Verified 09/19/22 16:11) Lips swelling amoxicillin [From Augmentin] Allergy (Verified 09/19/22 16:11) Unknown ciprofloxacin Allergy (Verified 09/19/22 16:11) Unknown clavulanic acid [From Augmentin] Allergy (Verified 09/19/22 16:11) Unknown dextromethorphan Allergy (Verified 09/19/22 16:11) Hives guaifenesin Allergy (Verified 09/19/22 16:11) Hives levofloxacin [From Levaquin] Allergy (Verified 09/19/22 16:11) Anaphylaxis niacin Allergy (Verified 09/19/22 16:11) Pain in joints nitrofurantoin Allergy (Verified 09/19/22 16:11) Unknown propoxyphene Allergy (Verified 09/19/22 16:11) Unknown Sulfa (Sulfonamide Antibiotics) Allergy (Verified 09/19/22 16:11) Hives sulfamethoxazole [From Bactrim] Allergy (Verified 09/19/22 16:11) Hives tetracycline Allergy (Verified 09/19/22 16:11) Unknown trimethoprim [From Bactrim] Allergy (Verified 09/19/22 16:11) Hives clarithromycin [From Biaxin] Adverse Reaction (Mild, Verified 09/19/22 16:11) Rash codeine Adverse Reaction (Verified 09/19/22 16:11) Nausea ANALOGUES Allergy (Uncoded 09/19/22 16:11) Unknown macrocryst Allergy (Uncoded 09/19/22 16:11) Unknown Procedures: None Type of Care/Length of Stay Estimated LOS: Convalescent Care Less Than 30 days Type of Care Needed: Skilled Rehab Potential: Good Prognosis: Good Additional Orders/Day of Discharge H&P will serve as current which was dated: 10/18/22 Day of Discharge: 10/23/22 Dietary and Speech Recommendations Dietitian Recommendations/Changes: Continue Regular diet to optimize oral intakes. Continue 118mL Ensure Compact 4x with med pass to promote weight gain. May need to consider more aggressive nutrition support if po intake fails to improve and/or wt loss continues IF in accordance w/ pt/family wishes. Discharge Plan Admission Admit Date/Time: 10/18/22 23:37 Primary Reason for Your Visit: pneumonia Attending Provider: Mainor Nur Primary Care Provider: Dory Johnson Consulting Providers: Mindy Flores ; Staci Mendoza ; Kolby Devine Instructions Additional Instructions / Restrictions: Respiratory precautions for 5 more days Discharge Orders/Prescriptions Prescriptions: New acetaminophen [Tylenol] 325 mg Tablet 650 mg PO Q4H PRN PRN (Reason: Fever, pain 1-08/03) Qty: 0 0RF nicotine 14 mg/24 hr Patch 24 Hour 14 mg transdermal DAILY Qty: 0 0RF ipratropium-albuterol 0.5 mg-3 mg(2.5 mg base)/3 mL Solution For Nebulization 3 ml inhalation 4X/DAY Qty: 0 0RF albuterol sulfate 2.5 mg /3 mL (0.083 %) Solution For Nebulization 2.5 mg inhalation Q2H PRN PRN (Reason: Dyspnea, wheezing) Qty: 0 0RF mirtazapine 15 mg Tablet 15 mg PO QHS Qty: 0 0RF ondansetron 4 mg Tablet,Disintegrating 4 mg PO Q6H PRN (Reason: Nausea) Qty: 0 0RF Ensure Compact Liquid 118 ml PO 4X/DAY Qty: 0 0RF menthol-zinc oxide [Calmoseptine] 0.44-20.6 % Ointment 1 applic topical BID Qty: 0 0RF Protocol: *Topical Application Instructions APPLICATION INSTRUCTIONS: buttocks polyethylene glycol 3350 17 gram Powder In Packet 17 g PO DAILY Qty: 0 0RF pantoprazole 40 mg Tablet,Delayed Release (Dr/Ec) 40 mg PO DAILY Qty: 0 0RF dexamethasone 6 mg tablet 6 mg PO DAILY Qty: 4 0RF Rx Instructions: start on 10/24/22 and take for 4 days cefdinir 300 mg capsule 300 mg PO BID Qty: 8 0RF Rx Instructions: start on 10/24/22 and take for 4 days Continued budesonide-formoterol [Symbicort] 80-4.5 mcg/actuation HFA aerosol inhaler 1 puff INHALATION BID Discontinued hydrochlorothiazide 25 MG tablet 12.5 mg PO DAILY Label Comments: blood pressure albuterol sulfate 1 INHALER inhaler 1 - 2 puff INHALATION Q4H PRN PRN (Reason: dyspnea, wheezing) Qty: 1 0RF Rx Instructions: Dx: Chronic COPD Spiriva Respimat 1.25 mcg/actuation mist 1 puff INHALATION DAILY albuterol sulfate 2.5 mg /3 mL (0.083 %) solution for nebulization 2.5 mg INHALATION Q4H PRN (Reason: Sob &/Or Wheezing) Qty: 180 6RF Referrals / Follow Up: Dory Johnson DO [Primary Care Provider] - Disposition Disposition (needs filled in before D/C Order can be placed): Longterm Facility (1) COPD (chronic obstructive pulmonary disease) Qualifiers: COPD type: unspecified COPD Qualified Code(s): J44.9 - Chronic obstructive pulmonary disease, unspecified
--- NOTE | 2022-10-23 11:46 | DS.PCM_ITS ---
Providers Date of Admission: 10/18/22 Date of Discharge: 10/23/22 Primary Care Physician: Dr. Dory Johnson, DO Consultations 10/19/22 09:18 Consult: Nephrology Routine Consulting Provider: Staci Mendoza Reason for Consult: ALLEN EMERGENT Consult: No MD Notified: Yes Date Notified: 10/19/22 Time Notified: 10:10 Method of Notification: Answering Service Reason For Visit: COVID, ALLEN, COPD Diagnosis Discharge Diagnosis (1) COVID-19: Status: Acute Code(s): U07.1 - COVID-19 (2) Acute dehydration: Status: Acute Code(s): E86.0 - Dehydration (3) Pneumonia: Status: Acute Code(s): J18.9 - Pneumonia, unspecified organism (4) COPD (chronic obstructive pulmonary disease): Status: Chronic Code(s): J44.9 - Chronic obstructive pulmonary disease, unspecified Qualifiers: COPD type: unspecified COPD Qualified Code(s): J44.9 - Chronic obstructive pulmonary disease, unspecified (5) Acute and chronic respiratory failure with hypoxia: Status: Chronic Code(s): J96.21 - Acute and chronic respiratory failure with hypoxia (6) Severe protein-calorie malnutrition: Status: Chronic Code(s): E43 - Unspecified severe protein-calorie malnutrition Plan 1. Strep pneumoniae pneumonia-patient will remain on Rocephin at this time #2 COVID-19 infection without demonstratable infiltrate-patient is not a candidate for remdesivir or baricitinib at this time, patient appears to be doing well on dexamethasone alone #3 chronic protein and caloric malnutrition-etiology unclear, related to patient inability to consume adequate nutrition to meet estimated nutritional needs as evidenced by 18.6% weight loss x1 month and patient consuming less than 75% of estimated nutritional needs for 1 month and a BMI of 14.5. Diet was liberaliz ed, fortified foods were provided with meals, ONS with [employer] Pass was ordered, patient was seen by nutritional services, patient was placed on Remeron as an appetite stimulant #4 chronic obstructive pulmonary disease-patient continues to smoke at home, patient is on home O2, she will be continued on aerosol treatment #5 chronic hypoxic respiratory failure-patient appears to be on her baseline oxygen requirement, pulse ox will be monitored #6 nausea-etiology unclear, patient will be encouraged to eat, she may need a work-up if she has persistent difficulty with oral intake. For now, patient is on program Zofran and I will reevaluate her tomorrow. #7 acute kidney injury-patient's creatinine is improved today, continue IV fluids, nephrology is participating in her care #8 acute debility-patient is being seen by PT and OT, she will need short-term placement in a alf facility. We have received approval for her to go to a nursing facility but I will need to reevaluate her tomorrow for transfer. Medications at Discharge Home Medications budesonide-formoterol HFA 80 mcg-4.5 mcg/actuation aerosol inhaler (Symbicort) 1 puff inhalation BID shortnes of breath 10/19/22 acetaminophen 325 mg tablet (Tylenol) 650 mg PO Q4H PRN PRN Fever, pain 1-08/03 #0 tabs 10/23/22 albuterol sulfate 2.5 mg/3 mL (0.083 %) solution for nebulization 2.5 mg (3 mL) inhalation Q2H PRN PRN Dyspnea, wheezing #0 mL 10/23/22 cefdinir 300 mg capsule 300 mg PO BID #8 caps 10/23/22 dexamethasone 6 mg tablet 6 mg PO DAILY #4 tabs 10/23/22 food supplemt, lactose-reduced (Ensure Compact oral liquid) 118 ml PO 4X/DAY #0 mL 10/23/22 ipratropium 0.5 mg-albuterol 3 mg (2.5 mg base)/3 mL nebulization soln 3 ml inhalation 4X/DAY #0 mL 10/23/22 menthol 0.44 %-zinc oxide 20.6 % topical ointment (Calmoseptine) 1 applic topical BID #0 grams 10/23/22 mirtazapine 15 mg tablet 15 mg PO QHS #0 tabs 10/23/22 nicotine 14 mg/24 hr daily transdermal patch 14 mg transdermal DAILY #0 ea 10/23/22 ondansetron 4 mg disintegrating tablet 4 mg PO Q6H PRN Nausea #0 tabs 10/23/22 pantoprazole 40 mg tablet,delayed release 40 mg PO DAILY #0 tabs 10/23/22 polyethylene glycol 3350 17 gram oral powder packet 17 g PO DAILY #0 ea 10/23/22 Hospital Course Operations None Procedures None Summary of Care Provided Minutes Spent on Discharge: 32 Hospital Course: Patient was seen in the emergency room at [facility], she is on chronic oxygen at home and presented with shortness of breath. Patient also had a cough. Work-up in the ER included a CBC which showed an elevated white count 11.1, sodium was 130, bicarb was 19, creatinine was 4.03 and BUN was 111. Patie nt required 3 L of oxygen to maintain a pulse ox above 90%. Patient's COVID antigen test was positive, patient's chest x-ray did not show any acute infiltrates. Patient was admitted to [place] [address], she was given IV fluids and seen in consultation by nephrology, she was seen by dietary and placed on Remeron as an appetite stimulant. She was seen by PT and OT, it was recommended that the patient go to an extended care facility for short-term rehab services and the patient agreed. Patient's creatinine improved with administration of fluids. On 10/23/2022, patient was seen and examined: On examination she appeared frail and cachectic, she does not appear to be in any distress. Vital signs as documented. Skin warm and dry and without overt rashes. Neck without JVD, thyroid appears normal, trachea is midline, neck is supple. Lungs clear, breath sounds are diminished bilaterally. Heart exam notable for regular rhythm, normal sounds and absence of murmurs, rubs or gallops. Abdomen unremarkable and without evidence of organomegaly, masses, or abdominal aortic enlargement, bowel sounds are present in all 4 quadrants, no abdominal tenderness was noted. Extremities nonedematous, no cyanosis was noted, no clubbing was noted. Neuro: Cranial nerves II through XII are grossly intact, no focal motor deficits were noted, sensation to light touch and pinprick is intact, motor exam 5/5 throughout. Psych: Patient is alert and oriented x3, she does not appear anxious or depressed, she does not appear agitated. On 10/23/2022, patient was transferred to an extended care facility in [facility] Medical Records Data Medical Nutrition Assessment Dietitian: Malnutrition Criteria Met Start: 10/19/22 11:13 Freq: Status: Active Protocol: Document 10/19/22 11:13 MARK (Rec: 10/19/22 11:13 MARK [id number]) Nutrition Malnutrition Evidence of Malnutrition Exists Yes Malnutrition (severe): Chronic Evidenced By Suboptimal Energy Intake ( Severe),Weight Loss (Severe) Clinical Problem Altered Nutrient-Related Laboratory Values Etiology related to ALLEN Signs/Symptoms as evidenced by BUN 107, Cr 3. 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 May need to consider more aggressive nutrition support if po intake fails to improve and/or wt loss continues IF in accordance w/ pt/family wishes. Weight / BMI Weight Weight: 42.7 kg Body Mass Index (BMI) 14.5 ABG / Lab / Microbiology Data Result Diagrams: 10/20/22 07:00 10/22/22 05:54 Microbiology: Microbiology 10/19/22 02:40 Mucosa - Nasopharyngeal Respiratory Panel (PCR) - Final 10/19/22 06:30 Urine, Clean Catch Legionella Antigen - Final 10/19/22 06:30 Urine, Clean Catch Streptococcus pneumoniae Antigen (M - Final Streptococcus pneumonia Ag 10/18/22 22:17 Nasal Secretion SARS-CoV-2 & FLU Antigen (Rapid) - Final SARS-CoV-2 (COVID 19) Meaningful Use Info Meaningful Use Diagnoses (Choose all that apply): None applicable Discharge Plan Admission Admit Date/Time: 10/18/22 23:37 Primary Reason for Your Visit: pneumonia Attending Provider: Mainor Nur Primary Care Provider: Dory Johnson Consulting Providers: Mindy Flores ; Staci Mendoza ; Kolby Devine Instructions Additional Instructions / Restrictions: Respiratory precautions for 5 more days Discharge Orders/Prescriptions Prescriptions: New acetaminophen [Tylenol] 325 mg Tablet 650 mg PO Q4H PRN PRN (Reason: Fever, pain 1-08/03) Qty: 0 0RF nicotine 14 mg/24 hr Patch 24 Hour 14 mg transdermal DAILY Qty: 0 0RF ipratropium-albuterol 0.5 mg-3 mg(2.5 mg base)/3 mL Solution For Nebulization 3 ml inhalation 4X/DAY Qty: 0 0RF albuterol sulfate 2.5 mg /3 mL (0.083 %) Solution For Nebulization 2.5 mg inhalation Q2H PRN PRN (Reason: Dyspnea, wheezing) Qty: 0 0RF mirtazapine 15 mg Tablet 15 mg PO QHS Qty: 0 0RF ondansetron 4 mg Tablet,Disintegrating 4 mg PO Q6H PRN (Reason: Nausea) Qty: 0 0RF Ensure Compact Liquid 118 ml PO 4X/DAY Qty: 0 0RF menthol-zinc oxide [Calmoseptine] 0.44-20.6 % Ointment 1 applic topical BID Qty: 0 0RF Protocol: *Topical Application Instructions APPLICATION INSTRUCTIONS: buttocks polyethylene glycol 3350 17 gram Powder In Packet 17 g PO DAILY Qty: 0 0RF pantoprazole 40 mg Tablet,Delayed Release (Dr/Ec) 40 mg PO DAILY Qty: 0 0RF dexamethasone 6 mg tablet 6 mg PO DAILY Qty: 4 0RF Rx Instructions: start on 10/24/22 and take for 4 days cefdinir 300 mg capsule 300 mg PO BID Qty: 8 0RF Rx Instructions: start on 10/24/22 and take for 4 days Continued budesonide-formoterol [Symbicort] 80-4.5 mcg/actuation HFA aerosol inhaler 1 puff INHALATION BID Discontinued hydrochlorothiazide 25 MG tablet 12.5 mg PO DAILY Label Comments: blood pressure albuterol sulfate 1 INHALER inhaler 1 - 2 puff INHALATION Q4H PRN PRN (Reason: dyspnea, wheezing) Qty: 1 0RF Rx Instructions: Dx: Chronic COPD Spiriva Respimat 1.25 mcg/actuation mist 1 puff INHALATION DAILY albuterol sulfate 2.5 mg /3 mL (0.083 %) solution for nebulization 2.5 mg INHALATION Q4H PRN (Reason: Sob &/Or Wheezing) Qty: 180 6RF Referrals / Follow Up: Dory Johnson DO [Primary Care Provider] - Disposition Disposition (needs filled in before D/C Order can be placed): Care Home Facility Charges/Coding Visit Charges Inpatient E&M: 92771 Disch Hosp
--- NOTE | 2022-10-23 12:20 | CASEMGMT ---
Social Work? MARK notified pt and pt family of discharge to [facility] today. Pt Kaley acosta voiced understanding. MARK completed 7000 convalescent form in [facility]. Set up cot transportation through [facility] for 1:30pm. MARK faxed all discharge orders to [facility] via [facility] and notified of discharge time. MARK notified pt nurse of transport time. MARK made copies of discharge orders and placed on pt chart. Sent original orders in envelope with pt upon discharge.?? Disposition: [facility] [place], skilled, convalescent, level of care? [place]
== END 2022-10-23 13:50 | disposition skilled nursing facility (03) | DRG 177 ==
LOC: ED 22:27 → MS3 10-19 00:06
PROVIDERS: Internal Medicine; Nurse Practitioner Adult Health; Admitting Provider Family Medicine; Emergency Provider Emergency Medicine; PCP Internal Medicine; Visit Provider Internal Medicine
DX: U07.1 COVID-19 (principal); E43 Unspecified severe protein-calorie malnutrition; J96.21 Acute and chronic respiratory failure with hypoxia; J13 Pneumonia due to Streptococcus pneumoniae; E87.20 Acidosis, unspecified; E87.1 Hypo-osmolality and hyponatremia; A08.39 Other viral enteritis; N17.9 Acute kidney failure, unspecified; J44.1 Chronic obstructive pulmonary disease with (acute) exacerbation; J44.0 Chronic obstructive pulmonary disease with (acute) lower respiratory infection; N30.00 Acute cystitis without hematuria; Z68.1 Body mass index [BMI] 19.9 or less, adult; E86.0 Dehydration; E78.5 Hyperlipidemia, unspecified; I10 Essential (primary) hypertension; E03.9 Hypothyroidism, unspecified; F17.200 Nicotine dependence, unspecified, uncomplicated; R73.9 Hyperglycemia, unspecified; Z66 Do not resuscitate; Z92.3 Personal history of irradiation; Z92.21 Personal history of antineoplastic chemotherapy; Z99.81 Dependence on supplemental oxygen; Z28.310 Unvaccinated for COVID-19; Z85.41 Personal history of malignant neoplasm of cervix uteri
CPT/HCPCS: 36415; 36600; 71046; 76770; 78597; 80048; 80053; 81001; 82009; 82570; 82728; 82803; 83036; 83615; 83690; 83735; 83880; 83930; 83935; 84100; 84145; 84300; 84439; 84443; 84484; 85025; 85379; 86140; 87428; 87449; 87633; 92610; 93005; 93970; 94640; 94762; 97110; 97162; 97166; 97530; 97535; 99251; 99285; A9540; J7030; A4216; G0463; J2405